=== PATIENT | female | born 1960 | race Caucasian/White ===

== ENCOUNTER → 2016-12-11 | Outpatient (REF) | payer BC | LOC: M SFHCWAGY 11:05 | PROVIDERS: ATTEND Nurse Practitioner Women's Health | DX: Z12.4 Encounter for screening for malignant neoplasm of cervix (principal) ==

== ENCOUNTER → 2016-12-11 | Outpatient (CLI) | payer BC ==
--- NOTE | 2016-12-11 12:06 | REPMRS ---
Patient History The patient states she had a clinical breast exam in Patient is postmenopausal and had previous chemotherapy at age 44. No known family history of cancer. Digital Woman Screen Mammo: December 11, 2016 - Exam #: [id number] Bilateral CC and MLO view(s) were taken. Technologist: Lizbeth Parker, Technologist Prior study comparison: November 01, 2015, digital woman screen mammo performed at [facility]. October 30, 2014, digital woman screen mammo performed at [facility]. September 30, 2013, digital woman screen mammo performed at [facility]. FINDINGS: The breast tissue is heterogeneously dense. This may lower the sensitivity of mammography. There is a moderate amount of heterogeneously dense fibroglandular tissue which is fairly symmetric. There is no interval development of dominant mass, architectural distortion, or clustered microcalcification typical of malignancy. There has been no change in the appearance of the mammogram from the prior studies. ASSESSMENT: BI-RADS/ACR category 1 mammogram. Negative. Recommendation Routine screening mammogram of both breasts in 1 year (for women over age 40). This mammogram was interpreted with the aid of an FDA-approved computer-aided dectection system. Electronically Signed By: Guanaco Renae MD 12/11/16 1413
== END ==
LOC: M WHC 10:05
PROVIDERS: ATTEND Nurse Practitioner Women's Health
DX: Z12.31 Encounter for screening mammogram for malignant neoplasm of breast (principal)

== ENCOUNTER → 2016-12-22 | Outpatient (CLI) | payer BC ==
[2016-12-22 18:22] LABS: ANION GAP 7 MEQ/L (8-16); BLOOD UREA NITROGEN 31 MG/DL (7-18); CALCIUM LEVEL 9.2 MG/DL (8.5-10.1); CARBON DIOXIDE LEVEL 30 MEQ/L (21-32); CHLORIDE LEVEL 107 MEQ/L (98-107); CREATININE FOR GFR 0.55 MG/DL (0.55-1.02); GLOMERULAR FILTRATION RATE > 60.0 (>51); GLUCOSE, FASTING 95 MG/DL (70-105); POTASSIUM SERUM 4.3 MEQ/L (3.5-5.1); SODIUM LEVEL 144 MEQ/L (136-145)
== END ==
LOC: M LAB 17:36
PROVIDERS: ATTEND Nurse Practitioner Women's Health
DX: M81.0 Age-related osteoporosis without current pathological fracture (principal)

== ENCOUNTER → 2017-06-25 | Outpatient (CLI) | payer BC ==
--- NOTE | 2017-06-25 12:45 | REP ---
MRI STUDY OF THE BRAIN WITHOUT AND WITH IV GADOLINIUM: HISTORY: Multiple sclerosis. Followup. Comparison MRI study is from June 21, 2015. Gadolinium enhancement dose. 11 mL of intravenous ProHance. MR TECHNIQUE: Axial coronal and sagittal imaging planes are utilized. T1 and T2-weighted sequences include spin-echo, fast spin echo, FLAIR, and diffusion weighted sequences. MRI FINDINGS: Craniocervical junction and upper cervical cord are normal in appearance. There is no MR evidence of significant paranasal sinus disease. No intraorbital abnormality is observed. There are multiple areas of high T2 signal intensity in the periventricular and subcortical white matter bilaterally. There is corpus callosal abnormal signal intensity as well. These findings are all felt to be unchanged from the comparison MRI study of July 01, 2015. Stable low T1 signal intensity areas are seen in the periventricular region bilaterally unchanged. No abnormal area of gadolinium enhancement is seen. Diffusion weighted sequences show no area of restricted diffusion. IMPRESSION: Findings compatible with radiographically stable demyelinating disease. Signed by Karri Renae MD 06/25/2017 02:12 P
== END ==
LOC: M RAD 10:58
PROVIDERS: ATTEND Psychiatry & Neurology Neurology
DX: G35 Multiple sclerosis (principal)
CPT/HCPCS: 70553; A9576

== ENCOUNTER → 2017-09-11 | Outpatient (REF) | payer BC ==
[2017-09-11 11:47] LABS: MEAN CORPUSCULAR HEMOGLOBIN 31.3 pg (27.0-33.0); MEAN CORPUSCULAR HGB CONC 33.8 g/dl (32.0-36.5); MEAN CORPUSCULAR VOLUME 92.6 fl (80.0-96.0); PLATELET COUNT, AUTOMATED 227 10^3/uL (150-450); RED CELL DISTRIBUTION WIDTH 13.2 % (11.5-14.5); WHITE BLOOD COUNT 6.5 10^3/uL (4.0-10.0)
[2017-09-11 12:32] LABS: ALBUMIN 4.2 GM/DL (3.2-5.2); ALKALINE PHOSPHATASE 47 U/L (45-117); ALT/SGPT 19 U/L (12-78); ANION GAP 7 MEQ/L (8-16); AST/SGOT 9 U/L (7-37); BILIRUBIN,TOTAL 0.4 MG/DL (0.2-1.0); BLOOD UREA NITROGEN 31 MG/DL (7-18); CALCIUM LEVEL 10.1 MG/DL (8.5-10.1); CARBON DIOXIDE LEVEL 31 MEQ/L (21-32); CHLORIDE LEVEL 104 MEQ/L (98-107); CHOLESTEROL LEVEL 173 MG/DL (<200); CREATININE FOR GFR 0.42 MG/DL (0.55-1.02); FREE T4 0.96 NG/DL (0.76-1.46); GLOMERULAR FILTRATION RATE > 60.0 (>51); GLUCOSE, FASTING 84 MG/DL (70-105); POTASSIUM SERUM 5.1 MEQ/L (3.5-5.1); SODIUM LEVEL 142 MEQ/L (136-145); TOTAL PROTEIN 7.2 GM/DL (6.4-8.2); TRIGLYCERIDES LEVEL 44 MG/DL (<150)
== END ==
LOC: M SFHCPLAZ 09:46
PROVIDERS: ATTEND Family Medicine
DX: E04.2 Nontoxic multinodular goiter (principal); K51.90 Ulcerative colitis, unspecified, without complications

== ENCOUNTER → 2018-02-07 | Outpatient (CLI) | payer BC | LOC: M WHC 13:06 | DX: Z12.31 Encounter for screening mammogram for malignant neoplasm of breast (principal); Z78.0 Asymptomatic menopausal state; Z92.21 Personal history of antineoplastic chemotherapy | CPT/HCPCS: 77067 ==

== ENCOUNTER → 2018-02-07 | Outpatient (REF) | payer BC | LOC: M SFHCWAGY 14:57 | DX: Z12.4 Encounter for screening for malignant neoplasm of cervix (principal) | CPT/HCPCS: G0123 ==

== ENCOUNTER → 2018-03-14 | Outpatient (CLI) | payer BC | LOC: M ADAMS 09:39 | DX: M51.37 Other intervertebral disc degeneration, lumbosacral region (principal); M54.32 Sciatica, left side | CPT/HCPCS: 72100 ==

== ENCOUNTER → 2018-03-18 | Outpatient (CLI) | payer BC | LOC: M PAIN 10:45 | DX: M46.1 Sacroiliitis, not elsewhere classified (principal); G57.01 Lesion of sciatic nerve, right lower limb; G35 Multiple sclerosis; R56.9 Unspecified convulsions; K51.90 Ulcerative colitis, unspecified, without complications; F17.210 Nicotine dependence, cigarettes, uncomplicated; G43.909 Migraine, unspecified, not intractable, without status migrainosus; Z79.899 Other long term (current) drug therapy; M85.80 Other specified disorders of bone density and structure, unspecified site; Z88.8 Allergy status to other drugs, medicaments and biological substances | CPT/HCPCS: G0463 ==

== ENCOUNTER → 2018-05-03 | Outpatient (CLI) | payer BC | LOC: M PAIN 14:30 | DX: G57.01 Lesion of sciatic nerve, right lower limb (principal); M46.1 Sacroiliitis, not elsewhere classified; G35 Multiple sclerosis; R56.9 Unspecified convulsions; K51.90 Ulcerative colitis, unspecified, without complications; M85.80 Other specified disorders of bone density and structure, unspecified site; F17.200 Nicotine dependence, unspecified, uncomplicated; Z79.899 Other long term (current) drug therapy; Z88.8 Allergy status to other drugs, medicaments and biological substances | CPT/HCPCS: G0463 ==

== ENCOUNTER → 2018-05-11 | Outpatient (CLI) | payer BC | LOC: M RAD 14:17 | DX: G57.01 Lesion of sciatic nerve, right lower limb (principal); M51.36 Other intervertebral disc degeneration, lumbar region; M51.26 Other intervertebral disc displacement, lumbar region | CPT/HCPCS: 72148 ==

== ENCOUNTER → 2018-05-28 | Outpatient (CLI) | payer BC ==
[~2018-05-28] MED LIST: ISOVUE-M 300 61% 15ML VIAL (Q9967) As Ordered; LIDOCAINE 1% SDV INJ 30 ML VIAL As Ordered; diazePAM 5 MG TAB As Ordered; diphenhydrAMINE 25 MG CAP As Ordered; methylPREDNISolone SUSP 40 MG/ML (DEPO-medrol) VIAL (J1030) As Ordered; oxyCODONE 5MG TAB As Ordered
== END ==
LOC: M PAIN 14:00
DX: G89.29 Other chronic pain (principal); M51.17 Intervertebral disc disorders with radiculopathy, lumbosacral region; M51.16 Intervertebral disc disorders with radiculopathy, lumbar region; M81.0 Age-related osteoporosis without current pathological fracture; G35 Multiple sclerosis; K51.90 Ulcerative colitis, unspecified, without complications; G43.909 Migraine, unspecified, not intractable, without status migrainosus; F17.210 Nicotine dependence, cigarettes, uncomplicated; Z79.899 Other long term (current) drug therapy; Z88.8 Allergy status to other drugs, medicaments and biological substances
CPT/HCPCS: J1030

== ENCOUNTER → 2018-06-19 | Outpatient (CLI) | payer MEDICARE | LOC: M PAIN 13:15 | DX: M51.17 Intervertebral disc disorders with radiculopathy, lumbosacral region (principal); M51.16 Intervertebral disc disorders with radiculopathy, lumbar region; G35 Multiple sclerosis; M81.0 Age-related osteoporosis without current pathological fracture; F17.210 Nicotine dependence, cigarettes, uncomplicated; Z79.899 Other long term (current) drug therapy; Z88.8 Allergy status to other drugs, medicaments and biological substances; Z78.0 Asymptomatic menopausal state | CPT/HCPCS: G0463 ==

== ENCOUNTER → 2018-07-23 | Outpatient (CLI) | payer MEDICARE ==
[~2018-07-23] MED LIST changes: -oxyCODONE 5MG TAB As Ordered
== END ==
LOC: M PAIN 13:30
DX: M51.17 Intervertebral disc disorders with radiculopathy, lumbosacral region (principal); G35 Multiple sclerosis; R56.9 Unspecified convulsions; K51.90 Ulcerative colitis, unspecified, without complications; M81.0 Age-related osteoporosis without current pathological fracture; F17.210 Nicotine dependence, cigarettes, uncomplicated; Z79.899 Other long term (current) drug therapy; E04.9 Nontoxic goiter, unspecified; Z88.1 Allergy status to other antibiotic agents; Z88.8 Allergy status to other drugs, medicaments and biological substances
CPT/HCPCS: J1030

== ENCOUNTER → 2018-08-13 | Outpatient (CLI) | payer MEDICARE | LOC: M PAIN 13:30 | DX: M51.16 Intervertebral disc disorders with radiculopathy, lumbar region (principal); G35 Multiple sclerosis; K51.90 Ulcerative colitis, unspecified, without complications; M81.0 Age-related osteoporosis without current pathological fracture; F17.210 Nicotine dependence, cigarettes, uncomplicated; Z79.899 Other long term (current) drug therapy; Z88.8 Allergy status to other drugs, medicaments and biological substances | CPT/HCPCS: G0463 ==

== ENCOUNTER → 2018-09-12 | Outpatient (CLI) | payer MEDICARE ==
[~2018-09-12] MED LIST changes: +BUPIVACAINE HCL 0.25% 30 ML VIAL As Ordered; +dexameTHASONE 10 MG/1 ML VIAL PRES.FREE (J1100) As Ordered; -methylPREDNISolone SUSP 40 MG/ML (DEPO-medrol) VIAL (J1030) As Ordered
== END ==
LOC: M PAIN 13:30
DX: G89.29 Other chronic pain (principal); M51.16 Intervertebral disc disorders with radiculopathy, lumbar region; M51.17 Intervertebral disc disorders with radiculopathy, lumbosacral region; G35 Multiple sclerosis; R56.9 Unspecified convulsions; M81.0 Age-related osteoporosis without current pathological fracture; F17.210 Nicotine dependence, cigarettes, uncomplicated; Z79.899 Other long term (current) drug therapy; Z88.8 Allergy status to other drugs, medicaments and biological substances; Z87.19 Personal history of other diseases of the digestive system
CPT/HCPCS: J1100

== ENCOUNTER → 2018-10-10 | Outpatient (CLI) | payer MEDICARE | LOC: M PAIN 10:30 | DX: M51.26 Other intervertebral disc displacement, lumbar region (principal); M54.17 Radiculopathy, lumbosacral region; G35 Multiple sclerosis; R56.9 Unspecified convulsions; M19.90 Unspecified osteoarthritis, unspecified site; F17.210 Nicotine dependence, cigarettes, uncomplicated; Z79.899 Other long term (current) drug therapy; Z88.8 Allergy status to other drugs, medicaments and biological substances; Z87.19 Personal history of other diseases of the digestive system | CPT/HCPCS: G0463 ==

== ENCOUNTER → 2018-10-28 | Outpatient (CLI) | payer MEDICARE ==
[~2018-10-28] MED LIST changes: -BUPIVACAINE HCL 0.25% 30 ML VIAL As Ordered; -ISOVUE-M 300 61% 15ML VIAL (Q9967) As Ordered; +ISOVUE-M 300 61% 15ML VIAL (Q9967) As Ordered ONE; -LIDOCAINE 1% SDV INJ 30 ML VIAL As Ordered; +LIDOCAINE 1% SDV INJ 30 ML VIAL As Ordered ONE; -dexameTHASONE 10 MG/1 ML VIAL PRES.FREE (J1100) As Ordered; -diazePAM 5 MG TAB As Ordered; +diazePAM 5 MG TAB As Ordered ONE; -diphenhydrAMINE 25 MG CAP As Ordered; +diphenhydrAMINE 25 MG CAP As Ordered ONE; +methylPREDNISolone SUSP 40 MG/ML (DEPO-medrol) VIAL (J1030) As Ordered ONE
--- NOTE | 2018-10-28 18:28 | REP ---
Partial lumbar spine series: Four views . History: Injection procedure for pain. 48 seconds of fluoroscopy time is reported. Findings: A sequence of four fluoroscopically obtained last image hold procedural spot radiographs of the lumbar spine document needle position and contrast injection associated with injection procedure. Electronically Signed by Karri Renae MD 10/28/2018 06:19 P
--- NOTE | 2018-11-12 23:35 | ECWPNPC ---
PATIENT NAME: MARY NAIR : 1960 GENDER: FEMALE VISIT DATE: 10/28/2018 DISCHARGE DATE: 10/28/18 1537 VISIT LOCKED DATE TIME: PHYSICIAN: BEV BARBOZA MD PHYSICIAN PAGER NO: [phone] RESOURCE: BEV BARBOZA MD REASON FOR APPOINTMENT 1. L5/S1 INTRALAMINAR LESI HISTORY OF PRESENT ILLNESS HISTORY OF PRESENT ILLNESS: PAIN THE PATIENT DESCRIBES THE PAIN... FALL RISK SCREENING: SCREENING :NO FALLS IN THE PAST YEAR CURRENT MEDICATIONS TAKING PROLIA 60 MG/ML SOLUTION DIRECTED SUBCUTANEOUS Q SIX MONTHS, NOTES: 07/2018 TAKING ASACOL 800 MG TABLET DELAYED RELEASE 1 TABLET ORALLY TWICE A DAY, NOTES: 10/28 700 TAKING BACLOFEN 20 MG TABLET 1 TABLET ORALLY DAILY, NOTES: 10/27 1900 TAKING DEPAKOTE ER 500 MG TABLET EXTENDED RELEASE 24 HOUR 1 TABLET ORALLY TWICE A DAY, NOTES: 10/28 700 TAKING PROVIGIL 100 MG TABLET 1 TABLET ORALLY ONCE A DAY, NOTES: 10/27 TAKING TECFIDERA 240 MG TABLET 1 TABLET ORALLY TWICE A DAY, NOTES: 10/28 700 TAKING CALCIUM 600 + D 600-400 MG-UNIT TABLET 1 TABLET ORALLY DAILY, NOTES: 10/28 700 TAKING VITAMIN D-3 2000 UNITS CAPSULE 1 CAPSULE ORALLY ONCE A DAY, NOTES: 10/28 700 TAKING NEURONTIN 300 MG CAPSULE 1 CAPSULE ORALLY BID, NOTES: 10/28 700 TAKING VITAMIN E 1000 UNIT CAPSULE 1 CAPSULE ORALLY ONCE A DAY, NOTES: 10/28 700 TAKING PATANOL 0.1 % SOLUTION 1 DROP INTO BOTH EYES OPHTHALMIC TWICE A DAY NEEDED, NOTES: NONE RECENT TAKING MAXALT 10 MG TABLET 1 TABLET ORALLY DAILY NEEDED FOR MIGRAINES MAXIUM MIGRAINES A MONTH =2, NOTES: NONE RECENT TAKING IBUPROFEN 600 MG TABLET 1 TABLET ORALLY THREE TIMES DAILY NEEDED, NOTES: 10/28 700 MEDICATION LIST REVIEWED AND RECONCILED WITH THE PATIENT PAST MEDICAL HISTORY MULTIPLE SCLEROSIS (DR. WHITING) SEIZURES ULCERATIVE COLITIS (DR. GRANDA) CARPAL TUNNEL OSTEOPOROSIS; STARTED PROLIA 12/29 SMOKER NON-TOXIC MULTINODULAR GOITER STABLE ON US 2013 (PREVIOUSLY FOLLOWED BY DR. GARCÍA) BL CARPEL TUNNEL - NO SURGERY ECHO 2004 MILD GLOBAL HYPOKINESIS LV EF 50% RT SCIATICA 2018 MINI BOWEL PERFORATION 2002 ALLERGIES 6-MP: GI SIDE EFFECTS: SIDE EFFECTS MTX: HAIR LOSS: SIDE EFFECTS FLAGYL: RED RASH: ALLERGY SURGICAL HISTORY TONSILLECTOMY 9 YEARS OLD ADENOIDECTOMY 9 YEARS OLD COLONSCOPY//NAN 04/07/2010,03/2014 & 2016 COLPOSCOPY CONIZATION FAMILY HISTORY FATHER: ALIVE 71 YRS, POLYMYALGIA, DIAGNOSED WITH HEART DISEASE MOTHER: ALIVE 79 YRS, HTN, HIGH CHOLESTEROL, CHOLECYSTECTOMY, DIAGNOSED WITH HYPERTENSION SIBLINGS: ALIVE 57,48 YRS DAUGHTER(S): ALIVE 27,23 YRS MATERNAL GRAND FATHER: BLADDER CANCER AT AGE 80 MATERNAL GRAND MOTHER: , HEART DISEASE, CHF, BYPASS SURGERY MATERNAL UNCLE: , COMPLICATIONS OF IDDM, CHF 2 SISTER(S) - HEALTHY. 2DAUGHTER(S) - HEALTHY. DENIES BREAST, COLON OR OVARIAN CANCERS. SOCIAL HISTORY GENERAL: TOBACCO USE ARE YOU A:CURRENT SMOKER ARE YOU INTERESTED IN QUITTING?NOT READY TO QUIT COUNSELED THE PATIENT ON SMOKING EFFECTS, EDUCATION ELAQATCV19/17/2018 HOW MANY CIGARETTES A DAY DO YOU SMOKE?6-10 HOW SOON AFTER YOU WAKE UP DO YOU SMOKE YOUR FIRST CIGARETTE?AFTER 60 MIN HOW OFTEN DO YOU SMOKE CIGARETTES?EVERY DAY PATIENT COUNSELED ON THE DANGERS OF TOBACCO USE AND URGED TO QUIT:10/28/2018 ALCOHOL SCREENING DID YOU HAVE A DRINK CONTAINING ALCOHOL IN THE PAST YEAR?NO POINTS0 INTERPRETATIONNEGATIVE RECREATIONAL DRUG USE DRUG USE?NO CAFFEINE NONE. SEXUAL HX HAD SEX IN THE LAST 12 MONTHS (VAGINAL, ORAL, OR ANAL)?YES WITHMEN ONLY HAVE YOU EVER HAD AN STD?NO LMP:POST MENOPAUSE HIV / HEP-C SCREENING HIV TEST OFFERED TO PATIENT:YES DATE OFFERED:02/07/2018 TEST ACCEPTED:NO REASON:PATIENT DECLINED BROCHURE PROVIDED TO PATIENTYES GNOSTICIST [id number] JUDAISM LANGUAGE CROATIAN. 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 DIET: NO HX EATING DISORDERS. EXERCISE: NO REGULAR EXERCISE. MARITAL STATUS: X 32 YRS. OTHERS AT HOME: SPOUSE, YOUNGEST DAUGHTER IN COLLEGE. NEW PATIENT PAIN DIARY FROM 0-10, WHAT LEVEL IS YOUR PAIN TODAY?7 PAIN CLINIC PFS, CLERGY, PUBLIC HEALTH REFERRALS PFS REFERRAL NEEDED?NO CLERGY REFERRAL NEEDED?NO PUBLIC HEALTH REFERRAL NEEDED?NO WAS THE PROVIDER NOTIFIED OF ANY PERTINENT INFO? N/A HAS THE PATIENT BEEN EDUCATED REGARDING HIS/HER PLAN OF CARE?YES HAS THE PATIENT BEEN EDUCATED REGARDING PAIN, THE RISK FOR PAIN, THE IMPORTANCE OF EFFECTIVE PAIN MANAGEMENT, AND THE PAIN ASSESSMENT PROCESS?YES ADVANCE DIRECTIVE ADVANCE DIRECTIVE DISCUSSED WITH PATIENT:YES HCP-1. -STACEY [phone]. 2. MARIA DEL ROSARIO CRUZ- DAUGHTER [phone] REVIEWED WITH PATIENT 08/13/18 1343 JSREVIEWED WITH PATIENT 09/12/18 1454 LAS10/10/18 1041 REVIEWED WITH PT. AD10/28/18 1345 REVIEWED WITH PT. AD. HOSPITALIZATION/MAJOR DIAGNOSTIC PROCEDURE CHILDBIRTH X2 MS 1992 REVIEW OF SYSTEMS REVIEWED BY: PROVIDER: . CONSTITUTIONAL: ANY CHANGE IN YOUR MEDICAL CONDITION? NO . CHILLS NO . FEVER NO . INFECTION: DO YOU HAVE NEW INFECTIONS? NO . DO YOU HAVE HISTORY OF MRSA? NO . MUSCULOSKELETAL: ANY NEW PATTERNS OF PAIN OR NUMBNESS? NO . GASTROENTEROLOGY: ANY NEW CHANGE IN BOWEL CONTROL? NO . GENITOURINARY: ANY NEW CHANGE IN BLADDER CONTROL? NO . IS THERE A CHANCE YOU COULD BE ? NO . HEMATOLOGY/LYMPH: DO YOU TAKE ANY BLOOD THINNERS? (FOR EXAMPLE- COUMADIN, PLAVIX, AGGRENOX, PLATEL, PRADAXA, OR XARELTO) NO . WHEN WAS YOUR LAST DOSE? DATE: TIME: . NEUROLOGY: HAVE YOU FALLEN IN THE PAST 6 MONTHS? NO . ANY NEW EXTREMITY NUMBNESS OR WEAKNESS? NO . CARDIOLOGY: DO YOU HAVE A PACEMAKER OR DEFIBRILLATOR? NO . RESPIRATORY: HAVE YOU BEEN SICK IN THE PAST WEEK? NO . FEVER NO . FLU LIKE SYMPTOMS? NO . COUGH NO . INTEGUMENTARY: DO YOU HAVE ANY RASHES OR OPEN SORES? NO . ALLERGIC/IMMUNO: ARE YOU ALLERGIC TO SHELLFISH OR IV DYE? NO . ANY NEW ALLERGIES? NO . PSYCHIATRIC: DO YOU HAVE THOUGHTS OF HURTING YOURSELF OR SOMEONE ELSE? NO . ARE YOU ABUSED, NEGLECTED, OR IN AN UNSAFE ENVIRONMENT? NO . ENDOCRINOLOGY: ARE YOU DIABETIC? NO . OTHER: DO YOU NEED ANY PRESCRIPTIONS? NO . IF YES, PLEASE LIST: ____ . ANY NEW PROBLEMS WITH YOUR MEDICATIONS? NO . WHEN DID YOU LAST EAT? 0630 . WHEN DID YOU LAST DRINK? 10/29 1100 . WHAT DID YOU LAST DRINK? ____ . NAME OF PERSON DRIVING YOU HOME? STACEY- . DO YOU HAVE ANY OTHER QUESTIONS OR CONCERNS NO PT HAS NOT HAD ANY VACCINES IN THE PAST 30 DAYS. . VITAL SIGNS WT 129.2 LBS, HT 66.5 IN, BMI 20.54 INDEX, BP 106/65 MM HG, HR 78 /MIN, RR 16 /MIN, TEMP 98.0 F, OXYGEN SAT % 100%, SAFE IN ENV? (Y/N) Y, NA INITIALS SC 13:09, REVIEWED BY: VERONICA. ASSESSMENTS INTERVERTEBRAL DISC DISORDER WITH RADICULOPATHY OF LUMBOSACRAL REGION - M51.17 (PRIMARY) PROCEDURES PRE PROCEDURE DIAGNOSIS LUMBOSACRAL DISC DISORDER WITH RADICULOPATHY POST PROCEDURE DIAGNOSIS LUMBOSACRAL DISC DISORDER WITH RADICULOPATHY PROCEDURE LUMBAR EPIDURAL STEROID INJECTION UNDER FLUOROSCOPIC GUIDANCE SURGEON DR. BEV BARBOZA FILAMENT COIL WINDER NONE ANESTHESIA LOCAL PRE PROCEDURE NOTE THE PATIENT HAS A HISTORY OF CHRONIC LOW BACK PAIN. I EVALUATE THE PATIENT AND REVIEWED THE CHART. I WENT OVER THE RISKS, ALTERNATIVES, AND BENEFITS ASSOCIATED WITH THIS PROCEDURE. THE PATIENT WOULD LIKE TO PROCEED AND GIVE CONSENT TO PERFORMED THE PROCEDURE. THE PATIENT DENIES UNEXPLAINABLE WEIGHT LOSS, FEVER, CHILLS, OR NEW CHANGES IN URINARY OR BOWEL CONTROL. DESCRIPTION OF PROCEDURE THE PATIENT WAS BROUGHT TO THE PROCEDURE ROOM AND PLACED IN THE PRONE POSITION. THE LUMBOSACRAL AREA WAS CLEANED WITH BETADINE SOLUTION AND DRAPED ASEPTICALLY. THE PROCEDURE WAS DONE UNDER STERILE CONDITIONS. I CHECKED LATERALITY AND THE LEVEL WHERE THE PROCEDURE WAS GOING TO BE PERFORMED WITH THE PATIENT AND THE SUPPORTING STAFF AT THE MOMENT OF THE TIME OUT IN THE PROCEDURE ROOM. UNDER FLUOROSCOPIC GUIDANCE, THE TARGET POINT WAS SELECTED AT THE INTERLAMINAR LEVEL OF L5-S1. LIDOCAINE WAS USED TO NUMB THE SKIN AND THE SUBCUTANEOUS TISSUE BELOW IT. EPIDURAL TUOHY NEEDLE, 17-GAUGE, WAS ADVANCED UNDER FLUOROSCOPIC GUIDANCE AND FOLLOWING PATIENT FEEDBACK UNTIL THE EPIDURAL SPACE WAS REACHED, 7 CM DEEP INTO THE SKIN BY THE LOSS OF RESISTANCE TECHNIQUE. ISOVUE M DYE 30%, 0.25 ML, WAS INJECTED SHOWING ADEQUATE SPREAD OF THE DYE. THEN, A SOLUTION OF 3 ML OF NORMAL SALINE WITH DEPO-MEDROL 60 MG WAS INJECTED SLOWLY FOLLOWING PATIENT FEEDBACK. THERE WAS NO EVIDENCE OF BLOOD, PARESTHESIA OR CEREBROSPINAL FLUID DURING THE PROCEDURE. THE PATIENT WAS SENT TO THE RECOVERY ROOM. THE PATIENT WAS MOVING THE EXTREMITIES AND DOING WELL. THERE WAS NO COMPLICATION DURING THE PROCEDURE. FLUOROSCOPY TIME WAS 48 SECONDS. POST PROCEDURE NOTE THE PATIENT WILL BE SEEN IN A FOLLOW UP IN THE NEXT FEW WEEKS. INSTRUCTIONS WERE GIVEN, QUESTIONS WERE ANSWERED, AND THE PATIENT EXPRESSED UNDERSTANDING AND AGREES WITH THE PLAN. I, ELIZABETH SCHNEIDER, DOCUMENTED THE ABOVE INFORMATION ACTING A SCRIBE FOR DR. BARBOZA. I HAVE REVIEWED THE ABOVE DOCUMENT, WRITTEN BY ELIZABETH LLOYDIBNereida AND I VERIFY THAT IT IS ACCURATE. DIAGNOSTIC IMAGING [facility] FLUORO GUIDE SPINE INJECTION (PAIN)[id number] PROCEDURE CODES 6045F RADXPS IN END [id number] PXD [id number] LUMBAR/SACRAL W/ IMAGING DISPOSITION & COMMUNICATION FOLLOW UP 2 WEEKS ELECTRONICALLY SIGNED BY BEV BARBOZA MD, MD ON 11/12/2018 AT 07:24 PM EST DISCLAIMER : THIS IS A VISIT SUMMARY EXTRACTED FROM THE [facility] CHART. IT IS NOT A COPY OF THE [facility] PROGRESS NOTE. MTDD
== END ==
LOC: M PAIN 13:00
PROVIDERS: ATTEND Anesthesiology
DX: M51.17 Intervertebral disc disorders with radiculopathy, lumbosacral region (principal); G35 Multiple sclerosis; R56.9 Unspecified convulsions; M81.0 Age-related osteoporosis without current pathological fracture; K51.90 Ulcerative colitis, unspecified, without complications; E04.2 Nontoxic multinodular goiter; G56.03 Carpal tunnel syndrome, bilateral upper limbs; F17.210 Nicotine dependence, cigarettes, uncomplicated; Z79.899 Other long term (current) drug therapy; Z88.1 Allergy status to other antibiotic agents; Z88.8 Allergy status to other drugs, medicaments and biological substances
CPT/HCPCS: 62323; J1030; Q9967

== ENCOUNTER → 2018-11-14 | Outpatient (CLI) | payer MEDICARE ==
--- NOTE | 2018-12-06 01:53 | ECWPNPC ---
PATIENT NAME: MARY NAIR : 1960 GENDER: FEMALE VISIT DATE: 11/14/2018 DISCHARGE DATE: 11/14/18 1008 VISIT LOCKED DATE TIME: PHYSICIAN: CARTER ASTUDILLO PHYSICIAN PAGER NO: [phone] RESOURCE: CARTER ASTUDILLO REASON FOR APPOINTMENT 1. POST LESI HISTORY OF PRESENT ILLNESS HISTORY OF PRESENT ILLNESS: HERE FOR POST PROCEDURE F/U.HAD LESI [id number].REPORTING >50% IMPROVEMENT OVERALL WITH BACK PAIN AND RIGHT LEG PAIN.CONTINUES TO HAVE RESIDUAL RIGHT ANTERIOR LATERAL TIBIA/FIBULA PAIN.RATING PAIN VAS 5/10. PAIN THE PATIENT DESCRIBES THE PAIN... FALL RISK SCREENING: SCREENING :NO FALLS IN THE PAST YEAR CURRENT MEDICATIONS TAKING PROLIA 60 MG/ML SOLUTION DIRECTED SUBCUTANEOUS Q SIX MONTHS, NOTES: 07/2018 TAKING ASACOL 800 MG TABLET DELAYED RELEASE 1 TABLET ORALLY TWICE A DAY, NOTES: 10/28 700 TAKING BACLOFEN 20 MG TABLET 1 TABLET ORALLY DAILY, NOTES: 10/27 1900 TAKING DEPAKOTE ER 500 MG TABLET EXTENDED RELEASE 24 HOUR 1 TABLET ORALLY TWICE A DAY, NOTES: 10/28 700 TAKING PROVIGIL 100 MG TABLET 1 TABLET ORALLY ONCE A DAY, NOTES: 10/27 TAKING TECFIDERA 240 MG TABLET 1 TABLET ORALLY TWICE A DAY, NOTES: 10/28 700 TAKING CALCIUM 600 + D 600-400 MG-UNIT TABLET 1 TABLET ORALLY DAILY, NOTES: 10/28 700 TAKING VITAMIN D-3 2000 UNITS CAPSULE 1 CAPSULE ORALLY ONCE A DAY, NOTES: 10/28 700 TAKING NEURONTIN 300 MG CAPSULE 1 CAPSULE ORALLY BID, NOTES: 10/28 700 TAKING VITAMIN E 1000 UNIT CAPSULE 1 CAPSULE ORALLY ONCE A DAY, NOTES: 10/28 700 TAKING PATANOL 0.1 % SOLUTION 1 DROP INTO BOTH EYES OPHTHALMIC TWICE A DAY NEEDED, NOTES: NONE RECENT TAKING MAXALT 10 MG TABLET 1 TABLET ORALLY DAILY NEEDED FOR MIGRAINES MAXIUM MIGRAINES A MONTH =2, NOTES: NONE RECENT TAKING IBUPROFEN 600 MG TABLET 1 TABLET ORALLY THREE TIMES DAILY NEEDED, NOTES: 10/28 700 MEDICATION LIST REVIEWED AND RECONCILED WITH THE PATIENT PAST MEDICAL HISTORY MULTIPLE SCLEROSIS (DR. WHITING) SEIZURES ULCERATIVE COLITIS (DR. GRANDA) CARPAL TUNNEL OSTEOPOROSIS; STARTED PROLIA 12/29 SMOKER NON-TOXIC MULTINODULAR GOITER STABLE ON US 2013 (PREVIOUSLY FOLLOWED BY DR. GARCÍA) BL CARPEL TUNNEL - NO SURGERY ECHO 2004 MILD GLOBAL HYPOKINESIS LV EF 50% RT SCIATICA 2018 MINI BOWEL PERFORATION 2002 ALLERGIES MTX: HAIR LOSS: SIDE EFFECTS FLAGYL: RED RASH: ALLERGY SURGICAL HISTORY TONSILLECTOMY 9 YEARS OLD ADENOIDECTOMY 9 YEARS OLD COLONSCOPY//NAN 04/07/2010,03/2014 & 2016 COLPOSCOPY CONIZATION FAMILY HISTORY FATHER: ALIVE 71 YRS, POLYMYALGIA, DIAGNOSED WITH HEART DISEASE MOTHER: ALIVE 79 YRS, HTN, HIGH CHOLESTEROL, CHOLECYSTECTOMY, DIAGNOSED WITH HYPERTENSION SIBLINGS: ALIVE 57,48 YRS DAUGHTER(S): ALIVE 27,23 YRS MATERNAL GRAND FATHER: BLADDER CANCER AT AGE 80 MATERNAL GRAND MOTHER: , HEART DISEASE, CHF, BYPASS SURGERY MATERNAL UNCLE: , COMPLICATIONS OF IDDM, CHF 2 SISTER(S) - HEALTHY. 2DAUGHTER(S) - HEALTHY. DENIES BREAST, COLON OR OVARIAN CANCERS. SOCIAL HISTORY GENERAL: TOBACCO USE ARE YOU A:CURRENT SMOKER ARE YOU INTERESTED IN QUITTING?NOT READY TO QUIT COUNSELED THE PATIENT ON SMOKING EFFECTS, EDUCATION AGCAUNAZ49/03/2019 HOW MANY CIGARETTES A DAY DO YOU SMOKE?6-10 HOW SOON AFTER YOU WAKE UP DO YOU SMOKE YOUR FIRST CIGARETTE?AFTER 60 MIN HOW OFTEN DO YOU SMOKE CIGARETTES?EVERY DAY PATIENT COUNSELED ON THE DANGERS OF TOBACCO USE AND URGED TO QUIT:11/14/2018 ALCOHOL SCREENING DID YOU HAVE A DRINK CONTAINING ALCOHOL IN THE PAST YEAR?NO POINTS0 INTERPRETATIONNEGATIVE RECREATIONAL DRUG USE DRUG USE?NO CAFFEINE NONE. SEXUAL HX HAD SEX IN THE LAST 12 MONTHS (VAGINAL, ORAL, OR ANAL)?YES WITHMEN ONLY HAVE YOU EVER HAD AN STD?NO LMP:POST MENOPAUSE HIV / HEP-C SCREENING HIV TEST OFFERED TO PATIENT:YES DATE OFFERED:02/07/2018 TEST ACCEPTED:NO REASON:PATIENT DECLINED BROCHURE PROVIDED TO PATIENTYES CHRISTIAN [id number] AMISH LANGUAGE AMERICAN. 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 DIET: NO HX EATING DISORDERS. EXERCISE: NO REGULAR EXERCISE. MARITAL STATUS: X 32 YRS. OTHERS AT HOME: SPOUSE, YOUNGEST DAUGHTER IN COLLEGE. NEW PATIENT PAIN DIARY FROM 0-10, WHAT LEVEL IS YOUR PAIN TODAY?7 PAIN CLINIC PFS, CLERGY, PUBLIC HEALTH REFERRALS PFS REFERRAL NEEDED?NO CLERGY REFERRAL NEEDED?NO PUBLIC HEALTH REFERRAL NEEDED?NO WAS THE PROVIDER NOTIFIED OF ANY PERTINENT INFO? N/A HAS THE PATIENT BEEN EDUCATED REGARDING HIS/HER PLAN OF CARE?YES HAS THE PATIENT BEEN EDUCATED REGARDING PAIN, THE RISK FOR PAIN, THE IMPORTANCE OF EFFECTIVE PAIN MANAGEMENT, AND THE PAIN ASSESSMENT PROCESS?YES ADVANCE DIRECTIVE ADVANCE DIRECTIVE DISCUSSED WITH PATIENT:YES HCP-1. -STACEY [phone]. 2. MARIA DEL ROSARIO CRUZ- DAUGHTER [phone] REVIEWED WITH PATIENT 08/13/18 1343 JSREVIEWED WITH PATIENT 09/12/18 1454 LAS10/10/18 1041 REVIEWED WITH PT. AD10/28/18 1345 REVIEWED WITH PT. ADREVIEWED WITH PT 11/14/2018 0945 LAS. HOSPITALIZATION/MAJOR DIAGNOSTIC PROCEDURE CHILDBIRTH X2 MS 1992 REVIEW OF SYSTEMS REVIEWED BY: PROVIDER: CARTER JORDAN . CONSTITUTIONAL: ANY CHANGE IN YOUR MEDICAL CONDITION? NO . CHILLS NO . FEVER NO . INFECTION: DO YOU HAVE NEW INFECTIONS? NO . DO YOU HAVE HISTORY OF MRSA? NO . MUSCULOSKELETAL: ANY NEW PATTERNS OF PAIN OR NUMBNESS? NO . GASTROENTEROLOGY: ANY NEW CHANGE IN BOWEL CONTROL? NO . GENITOURINARY: ANY NEW CHANGE IN BLADDER CONTROL? NO . IS THERE A CHANCE YOU COULD BE ? NO . HEMATOLOGY/LYMPH: DO YOU TAKE ANY BLOOD THINNERS? (FOR EXAMPLE- COUMADIN, PLAVIX, AGGRENOX, PLATEL, PRADAXA, OR XARELTO) NO . WHEN WAS YOUR LAST DOSE? DATE: TIME: . NEUROLOGY: HAVE YOU FALLEN IN THE PAST 6 MONTHS? NO . ANY NEW EXTREMITY NUMBNESS OR WEAKNESS? NO . CARDIOLOGY: DO YOU HAVE A PACEMAKER OR DEFIBRILLATOR? NO . RESPIRATORY: HAVE YOU BEEN SICK IN THE PAST WEEK? NO . FEVER NO . FLU LIKE SYMPTOMS? NO . COUGH NO . INTEGUMENTARY: DO YOU HAVE ANY RASHES OR OPEN SORES? NO . ALLERGIC/IMMUNO: ARE YOU ALLERGIC TO SHELLFISH OR IV DYE? NO . ANY NEW ALLERGIES? NO . PSYCHIATRIC: DO YOU HAVE THOUGHTS OF HURTING YOURSELF OR SOMEONE ELSE? NO . ARE YOU ABUSED, NEGLECTED, OR IN AN UNSAFE ENVIRONMENT? NO . ENDOCRINOLOGY: ARE YOU DIABETIC? NO . OTHER: DO YOU NEED ANY PRESCRIPTIONS? NO . IF YES, PLEASE LIST: ____ . ANY NEW PROBLEMS WITH YOUR MEDICATIONS? NO . WHEN DID YOU LAST EAT? ____ . WHEN DID YOU LAST DRINK? ____ . WHAT DID YOU LAST DRINK? ____ . NAME OF PERSON DRIVING YOU HOME? ____ . DO YOU HAVE ANY OTHER QUESTIONS OR CONCERNS NO . VITAL SIGNS WT 127.6 LBS, HT 66.5 IN, BMI 20.28 INDEX, BP 106/54 MM HG, HR 79 /MIN, RR 16 /MIN, TEMP 97.5 F, OXYGEN SAT % 98%, SAFE IN ENV? (Y/N) YES, NA INITIALS VA 09:37, REVIEWED BY: TONY. EXAMINATION GENERAL EXAMINATION: GENERAL APPEARANCE:ALERT,NO DISTRESS . PSYCHAFFECT NORMAL . LUNGS:LUNG SOUNDS ARE CLEAR . HEART:HEART RATE REGULAR . MUSCULOSKELETAL:MILD WEAKNESS OVER RIGHT LEG.TREMOR WITH MST RIGHT LEG. NEUROLOGIC EXAM:NORMAL SENSATION LIGHT TOUCH BILAT LEGS. DIAGNOSTIC TESTS REVIEWEDMRI L/S SPINE-05/11/18. ASSESSMENTS DISC DISPLACEMENT, LUMBAR - M51.26 (PRIMARY) LUMBOSACRAL RADICULOPATHY - M54.17 TREATMENT DISC DISPLACEMENT, LUMBAR CONTINUE NEURONTIN CAPSULE, 300 MG, 1 CAPSULE, ORALLY, BID, NOTES: 10/28 07 CONTINUE IBUPROFEN TABLET, 600 MG, 1 TABLET, ORALLY, THREE TIMES DAILY NEEDED, NOTES: 10/28 700 PROCEDURE CODES FA211 ESTABILISHED PATIENT MERGED WITH [facility] CHARGE DISPOSITION & COMMUNICATION FOLLOW UP 2 MONTHS ELECTRONICALLY SIGNED BY JULIAN MENDOZA ON 12/05/2018 AT 08:52 AM EST DISCLAIMER : THIS IS A VISIT SUMMARY EXTRACTED FROM THE [facility] CHART. IT IS NOT A COPY OF THE [facility] PROGRESS NOTE. CESAR
== END ==
LOC: M PAIN 09:15
PROVIDERS: ATTEND Nurse Practitioner Family
DX: M51.26 Other intervertebral disc displacement, lumbar region (principal); M54.17 Radiculopathy, lumbosacral region; G35 Multiple sclerosis; R56.9 Unspecified convulsions; M81.0 Age-related osteoporosis without current pathological fracture; F17.210 Nicotine dependence, cigarettes, uncomplicated; Z79.899 Other long term (current) drug therapy; Z88.8 Allergy status to other drugs, medicaments and biological substances; Z87.19 Personal history of other diseases of the digestive system

== ENCOUNTER → 2019-01-17 | Outpatient (CLI) | payer MEDICARE ==
--- NOTE | 2019-01-18 02:39 | ECWPNPC ---
PATIENT NAME: MARY NAIR : 1960 GENDER: FEMALE VISIT DATE: 01/17/2019 DISCHARGE DATE: 01/17/19 1035 VISIT LOCKED DATE TIME: PHYSICIAN: CARTER ASTUDILLO PHYSICIAN PAGER NO: [phone] RESOURCE: CARTER ASTUDILLO REASON FOR APPOINTMENT 1. R LEG PAIN HISTORY OF PRESENT ILLNESS HISTORY OF PRESENT ILLNESS: HERE FOR F/U OF CHRONIC LOW BACK PAIN AND RIGHT LEG PAIN.PAIN HAS ESCALATED OVER THE PAST MONTH ECSPECIALLY ALONG RIGHT LATERAL CALF AND FOOT.RATING PAIN VAS 7/10. PAIN THE PATIENT DESCRIBES THE PAIN... FALL RISK SCREENING: SCREENING : NO FALLS IN THE PAST YEAR. CURRENT MEDICATIONS TAKING PROLIA 60 MG/ML SOLUTION DIRECTED SUBCUTANEOUS Q SIX MONTHS TAKING ASACOL 800 MG TABLET DELAYED RELEASE 1 TABLET ORALLY TWICE A DAY TAKING BACLOFEN 20 MG TABLET 1 TABLET ORALLY DAILY TAKING DEPAKOTE ER 500 MG TABLET EXTENDED RELEASE 24 HOUR 1 TABLET ORALLY TWICE A DAY TAKING PROVIGIL 100 MG TABLET 1 TABLET ORALLY ONCE A DAY TAKING TECFIDERA 240 MG TABLET 1 TABLET ORALLY TWICE A DAY TAKING CALCIUM 600 + D 600-400 MG-UNIT TABLET 1 TABLET ORALLY DAILY TAKING VITAMIN D-3 2000 UNITS CAPSULE 1 CAPSULE ORALLY ONCE A DAY TAKING VITAMIN E 1000 UNIT CAPSULE 1 CAPSULE ORALLY ONCE A DAY TAKING PATANOL 0.1 % SOLUTION 1 DROP INTO BOTH EYES OPHTHALMIC TWICE A DAY NEEDED TAKING IBUPROFEN 600 MG TABLET 1 TABLET ORALLY THREE TIMES DAILY NEEDED TAKING NEURONTIN 300 MG CAPSULE 1 CAPSULE ORALLY BID TAKING MAXALT 10 MG TABLET 1 TABLET ORALLY DAILY NEEDED FOR MIGRAINES MAXIUM MIGRAINES A MONTH =2 MEDICATION LIST REVIEWED AND RECONCILED WITH THE PATIENT PAST MEDICAL HISTORY MULTIPLE SCLEROSIS (DR. WHITING) SEIZURES ULCERATIVE COLITIS (DR. GRANDA) CARPAL TUNNEL OSTEOPOROSIS; STARTED PROLIA 12/29 SMOKER NON-TOXIC MULTINODULAR GOITER STABLE ON US 2013 (PREVIOUSLY FOLLOWED BY DR. GARCÍA) BL CARPEL TUNNEL - NO SURGERY ECHO 2004 MILD GLOBAL HYPOKINESIS LV EF 50% RT SCIATICA 2018 MINI BOWEL PERFORATION 2002 ALLERGIES MTX: HAIR LOSS: SIDE EFFECTS FLAGYL: RED RASH: ALLERGY SURGICAL HISTORY TONSILLECTOMY 9 YEARS OLD ADENOIDECTOMY 9 YEARS OLD COLONSCOPY//NAN 04/07/2010,03/2014 & 2016 COLPOSCOPY CONIZATION FAMILY HISTORY FATHER: ALIVE 71 YRS, POLYMYALGIA, DIAGNOSED WITH HEART DISEASE MOTHER: ALIVE 79 YRS, HTN, HIGH CHOLESTEROL, CHOLECYSTECTOMY, DIAGNOSED WITH HYPERTENSION SIBLINGS: ALIVE 57,48 YRS DAUGHTER(S): ALIVE 27,23 YRS MATERNAL GRAND FATHER: BLADDER CANCER AT AGE 80 MATERNAL GRAND MOTHER: , HEART DISEASE, CHF, BYPASS SURGERY MATERNAL UNCLE: , COMPLICATIONS OF IDDM, CHF 2 SISTER(S) - HEALTHY. 2DAUGHTER(S) - HEALTHY. DENIES BREAST, COLON OR OVARIAN CANCERS. SOCIAL HISTORY GENERAL: TOBACCO USE ARE YOU A:CURRENT SMOKER ARE YOU INTERESTED IN QUITTING?NOT READY TO QUIT COUNSELED THE PATIENT ON SMOKING EFFECTS, EDUCATION [id number]/03/2019 HOW MANY CIGARETTES A DAY DO YOU SMOKE?6-10 HOW SOON AFTER YOU WAKE UP DO YOU SMOKE YOUR FIRST CIGARETTE?AFTER 60 MIN HOW OFTEN DO YOU SMOKE CIGARETTES?EVERY DAY PATIENT COUNSELED ON THE DANGERS OF TOBACCO USE AND URGED TO QUIT:11/14/2018 LATEX QUESTIONNAIRE LATEX ALLERGY : HAVE YOU EVER DEVELOPED ANY TYPE OF REACTION AFTER HANDLING LATEX PRODUCTS SUCH RUBBER GLOVES, CONDOMS, DIAPHRAGMS, BALLOONS, SOCKS, OR UNDERWEAR?NO LATEX ALLERGY : HAVE YOU EVER DEVELOPED ANY TYPE OF REACTION DURING OR AFTER DENTAL APPOINTMENT, VAGINAL/RECTAL EXAMINATION, SURGICAL PROCEDURE, OR ANY OTHER EXPOSURE?NO LATEX RISK : HAVE YOU EVER HAD ANY DIFFICULTY BREATHING OR HIVES AFTER EATING OR HANDLING ANY FRUITS, OR VEGETABLES; SUCH KIWI, BANANAS, STONE FRUITS, OR CHESTNUTSNO LATEX RISK : DO YOU HAVE A PREVIOUS PERSONAL HISTORY OF MORE THAN NINE SURGERIES, SPINA BIFIDA, OR REPEATED CATHERTIZATIONS? NO LATEX RISK : ARE YOU FREQUENTLY EXPOSED TO LATEX PRODUCTS IN YOUR OCCUPATION?NO DATE ASKED : 01/17/2019 ALCOHOL SCREENING DID YOU HAVE A DRINK CONTAINING ALCOHOL IN THE PAST YEAR?NO POINTS0 INTERPRETATIONNEGATIVE RECREATIONAL DRUG USE DRUG USE?NO CAFFEINE NONE. SEXUAL HX HAD SEX IN THE LAST 12 MONTHS (VAGINAL, ORAL, OR ANAL)?YES WITHMEN ONLY HAVE YOU EVER HAD AN STD?NO LMP:POST MENOPAUSE HIV / HEP-C SCREENING HIV TEST OFFERED TO PATIENT:YES DATE OFFERED:02/07/2018 TEST ACCEPTED:NO REASON:PATIENT DECLINED BROCHURE PROVIDED TO PATIENTYES UATSDIN [id number] ANABAPTISM LANGUAGE NORTHERN IRISH. 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 DIET: NO HX EATING DISORDERS. EXERCISE: NO REGULAR EXERCISE. MARITAL STATUS: X 32 YRS. OTHERS AT HOME: SPOUSE, YOUNGEST DAUGHTER IN COLLEGE. NEW PATIENT PAIN DIARY FROM 0-10, WHAT LEVEL IS YOUR PAIN TODAY?7 PAIN CLINIC PFS, CLERGY, PUBLIC HEALTH REFERRALS PFS REFERRAL NEEDED?NO CLERGY REFERRAL NEEDED?NO PUBLIC HEALTH REFERRAL NEEDED?NO WAS THE PROVIDER NOTIFIED OF ANY PERTINENT INFO? N/A HAS THE PATIENT BEEN EDUCATED REGARDING HIS/HER PLAN OF CARE?YES HAS THE PATIENT BEEN EDUCATED REGARDING PAIN, THE RISK FOR PAIN, THE IMPORTANCE OF EFFECTIVE PAIN MANAGEMENT, AND THE PAIN ASSESSMENT PROCESS?YES ADVANCE DIRECTIVE ADVANCE DIRECTIVE DISCUSSED WITH PATIENT:YES HCP-1. -STACEY [phone]. 2. MARIA DEL ROSARIO CRUZ- DAUGHTER [phone] REVIEWED WITH PATIENT 08/13/18 1343 JSREVIEWED WITH PATIENT 09/12/18 1454 LAS10/10/18 1041 REVIEWED WITH PT. AD10/28/18 1345 REVIEWED WITH PT. ADREVIEWED WITH PT 11/14/2018 0945 LAS REVIEWED WITH PT 01/17/19 1003 BV. HOSPITALIZATION/MAJOR DIAGNOSTIC PROCEDURE CHILDBIRTH X2 MS 1992 REVIEW OF SYSTEMS REVIEWED BY: PROVIDER: CARTER JORDAN . CONSTITUTIONAL: ANY CHANGE IN YOUR MEDICAL CONDITION? NO . CHILLS NO . FEVER NO . INFECTION: DO YOU HAVE NEW INFECTIONS? NO . DO YOU HAVE HISTORY OF MRSA? NO . MUSCULOSKELETAL: ANY NEW PATTERNS OF PAIN OR NUMBNESS? YES, INCREASING INTENSITY OF PAIN IN RIGHT LEG OVER THE PAST COUPLE MONTHS. . GASTROENTEROLOGY: ANY NEW CHANGE IN BOWEL CONTROL? NO . GENITOURINARY: ANY NEW CHANGE IN BLADDER CONTROL? NO . IS THERE A CHANCE YOU COULD BE ? NO . HEMATOLOGY/LYMPH: DO YOU TAKE ANY BLOOD THINNERS? (FOR EXAMPLE- COUMADIN, PLAVIX, AGGRENOX, PLATEL, PRADAXA, OR XARELTO) NO . WHEN WAS YOUR LAST DOSE? DATE: TIME: . NEUROLOGY: HAVE YOU FALLEN IN THE PAST 12 MONTHS? NO . ANY NEW EXTREMITY NUMBNESS OR WEAKNESS? NO . CARDIOLOGY: DO YOU HAVE A PACEMAKER OR DEFIBRILLATOR? NO . RESPIRATORY: HAVE YOU BEEN SICK IN THE PAST WEEK? NO . FEVER NO . FLU LIKE SYMPTOMS? NO . COUGH NO . INTEGUMENTARY: DO YOU HAVE ANY RASHES OR OPEN SORES? NO . ALLERGIC/IMMUNO: ARE YOU ALLERGIC TO IV DYE? NO . ANY NEW ALLERGIES? NO . PSYCHIATRIC: DO YOU HAVE THOUGHTS OF HURTING YOURSELF OR SOMEONE ELSE? NO . ARE YOU ABUSED, NEGLECTED, OR IN AN UNSAFE ENVIRONMENT? NO . ENDOCRINOLOGY: ARE YOU DIABETIC? NO . OTHER: DO YOU NEED ANY PRESCRIPTIONS? NO . IF YES, PLEASE LIST: ____ . ANY NEW PROBLEMS WITH YOUR MEDICATIONS? NO . WHEN DID YOU LAST EAT? ____ . WHEN DID YOU LAST DRINK? ____ . WHAT DID YOU LAST DRINK? ____ . NAME OF PERSON DRIVING YOU HOME? ____ . DO YOU HAVE ANY OTHER QUESTIONS OR CONCERNS NO . VITAL SIGNS WT 128.4 LBS, HT 66.5 IN, BMI 20.41 INDEX, BP 103/61 MM HG, HR 75 /MIN, RR 16 /MIN, TEMP 97.5 F, OXYGEN SAT % 98%, NA INITIALS AW 0958, REVIEWED BY: BV. EXAMINATION GENERAL EXAMINATION: GENERAL APPEARANCE:AWAKE,ALERT ,PLEAASANT . PSYCHAFFECT NORMAL . LUNGS:LUNG WEIR ARE CLEAR TO AUSCULTATION BILATERALLY. GOOD MOVEMENT OF AIR . HEART:S1, S2 IN A REGULAR RATE AND RHYTHM. NO SIGNIFICANT MURMURS, RUBS OR GALLOPS NOTED . LUMBAR SACRAL SPINEPALPATION: NEG FOR PAIN OVER L/S SPINE. NEG FOR PAIN OVER L/S PARASPINALS . NEUROLOGIC EXAM:PARATHESIAS TO LIGHT TOUCH RIGHT BELOW KNEE. DIAGNOSTIC:MRI L/S SPINE-04/2018. ASSESSMENTS DISC DISPLACEMENT, LUMBAR - M51.26 (PRIMARY) LUMBOSACRAL RADICULOPATHY - M54.17 TREATMENT DISC DISPLACEMENT, LUMBAR NOTES: RIGHT L5/S1 LESI. PROCEDURE CODES FA211 ESTABILISHED PATIENT [facility] FACILITY CHARGE DISPOSITION & COMMUNICATION FOLLOW UP POST (REASON: RIGHT L5/S1 LESI) ELECTRONICALLY SIGNED BY JULIAN MENDOZA ON 01/17/2019 AT 11:34 AM EST DISCLAIMER : THIS IS A VISIT SUMMARY EXTRACTED FROM THE [facility] CHART. IT IS NOT A COPY OF THE [facility] PROGRESS NOTE. MTDD
== END ==
LOC: M PAIN 09:45
PROVIDERS: ATTEND Nurse Practitioner Family
DX: M51.26 Other intervertebral disc displacement, lumbar region (principal); M54.17 Radiculopathy, lumbosacral region; G89.29 Other chronic pain; G35 Multiple sclerosis; R56.9 Unspecified convulsions; M81.0 Age-related osteoporosis without current pathological fracture; F17.210 Nicotine dependence, cigarettes, uncomplicated; Z88.1 Allergy status to other antibiotic agents; Z88.8 Allergy status to other drugs, medicaments and biological substances; Z79.899 Other long term (current) drug therapy

== ENCOUNTER → 2019-02-06 | Outpatient (CLI) | payer MEDICARE ==
--- NOTE | 2019-02-06 14:21 | REP ---
Partial lumbar spine series: Three views . History: Injection procedure for pain. 10 seconds of fluoroscopy time is reported. Findings: A sequence of three fluoroscopically obtained last image hold procedural spot radiographs of the lumbar spine document needle position and contrast injection associated with injection procedure. Electronically Signed by Karri Renae MD 02/06/2019 02:13 P
--- NOTE | 2019-02-08 01:11 | ECWPNPC ---
PATIENT NAME: MARY NAIR : 1960 GENDER: FEMALE VISIT DATE: 02/06/2019 DISCHARGE DATE: 02/06/19 1228 VISIT LOCKED DATE TIME: PHYSICIAN: BEV BARBOZA MD PHYSICIAN PAGER NO: [phone] RESOURCE: BEV BARBOZA MD REASON FOR APPOINTMENT 1. RIGHT L5/S1 LESI HISTORY OF PRESENT ILLNESS HISTORY OF PRESENT ILLNESS: PAIN THE PATIENT DESCRIBES THE PAIN... FALL RISK SCREENING: SCREENING :NO FALLS REPORTED IN THE LAST YEAR CURRENT MEDICATIONS TAKING PROLIA 60 MG/ML SOLUTION DIRECTED SUBCUTANEOUS Q SIX MONTHS, NOTES: 6 MONTHS AGO TAKING ASACOL 800 MG TABLET DELAYED RELEASE 1 TABLET ORALLY TWICE A DAY, NOTES: 0530 TAKING BACLOFEN 20 MG TABLET 1 TABLET ORALLY DAILY, NOTES: 02/05/19@1900 TAKING DEPAKOTE ER 500 MG TABLET EXTENDED RELEASE 24 HOUR 1 TABLET ORALLY TWICE A DAY, NOTES: 0530 TAKING PROVIGIL 100 MG TABLET 1 TABLET ORALLY ONCE A DAY, NOTES: 0530 TAKING TECFIDERA 240 MG TABLET 1 TABLET ORALLY TWICE A DAY, NOTES: 0530 TAKING CALCIUM 600 + D 600-400 MG-UNIT TABLET 1 TABLET ORALLY DAILY, NOTES: 0530 TAKING VITAMIN D-3 2000 UNITS CAPSULE 1 CAPSULE ORALLY ONCE A DAY, NOTES: 0530 TAKING VITAMIN E 1000 UNIT CAPSULE 1 CAPSULE ORALLY ONCE A DAY, NOTES: 0530 TAKING PATANOL 0.1 % SOLUTION 1 DROP INTO BOTH EYES OPHTHALMIC TWICE A DAY NEEDED, NOTES: NONE RECENTLY TAKING IBUPROFEN 600 MG TABLET 1 TABLET ORALLY TWICE DAILY, NOTES: 0530 TAKING NEURONTIN 300 MG CAPSULE 1 CAPSULE ORALLY BID, NOTES: 0530 TAKING MAXALT 10 MG TABLET 1 TABLET ORALLY DAILY NEEDED FOR MIGRAINES MAXIUM MIGRAINES A MONTH =2, NOTES: NONE RECENTLY MEDICATION LIST REVIEWED AND RECONCILED WITH THE PATIENT PAST MEDICAL HISTORY MULTIPLE SCLEROSIS (DR. WHITING) SEIZURES ULCERATIVE COLITIS (DR. GRANDA) CARPAL TUNNEL OSTEOPOROSIS; STARTED PROLIA 12/29 SMOKER NON-TOXIC MULTINODULAR GOITER STABLE ON US 2013 (PREVIOUSLY FOLLOWED BY DR. GARCÍA) BL CARPEL TUNNEL - NO SURGERY ECHO 2004 MILD GLOBAL HYPOKINESIS LV EF 50% RT SCIATICA 2018 MINI BOWEL PERFORATION 2002 ALLERGIES MTX: HAIR LOSS - SIDE EFFECTS FLAGYL: RED RASH - ALLERGY SURGICAL HISTORY TONSILLECTOMY 9 YEARS OLD ADENOIDECTOMY 9 YEARS OLD COLONSCOPY//NAN 04/07/2010,03/2014 & 2015 COLPOSCOPY CONIZATION FAMILY HISTORY FATHER: 71 YRS, POLYMYALGIA, DIAGNOSED WITH HEART DISEASE MOTHER: ALIVE 79 YRS, HTN, HIGH CHOLESTEROL, CHOLECYSTECTOMY, HYPERTENSION SIBLINGS: ALIVE 57,48 YRS DAUGHTER(S): ALIVE 27,23 YRS MATERNAL GRAND FATHER: BLADDER CANCER AT AGE 80 MATERNAL GRAND MOTHER: , HEART DISEASE, CHF, BYPASS SURGERY MATERNAL UNCLE: , COMPLICATIONS OF IDDM, CHF 2 SISTER(S) - HEALTHY. 2DAUGHTER(S) - HEALTHY. DENIES BREAST, COLON OR OVARIAN CANCERS.12/29/18 [place]. SOCIAL HISTORY GENERAL: TOBACCO USE ARE YOU A:CURRENT SMOKER ARE YOU INTERESTED IN QUITTING?NOT READY TO QUIT COUNSELED THE PATIENT ON SMOKING EFFECTS, EDUCATION [id number]/28/2019 HOW MANY CIGARETTES A DAY DO YOU SMOKE?6-10 HOW SOON AFTER YOU WAKE UP DO YOU SMOKE YOUR FIRST CIGARETTE?AFTER 60 MIN HOW OFTEN DO YOU SMOKE CIGARETTES?EVERY DAY PATIENT COUNSELED ON THE DANGERS OF TOBACCO USE AND URGED TO QUIT:11/14/2018 LATEX QUESTIONNAIRE LATEX ALLERGY : HAVE YOU EVER DEVELOPED ANY TYPE OF REACTION AFTER HANDLING LATEX PRODUCTS SUCH RUBBER GLOVES, CONDOMS, DIAPHRAGMS, BALLOONS, SOCKS, OR UNDERWEAR?NO LATEX ALLERGY : HAVE YOU EVER DEVELOPED ANY TYPE OF REACTION DURING OR AFTER DENTAL APPOINTMENT, VAGINAL/RECTAL EXAMINATION, SURGICAL PROCEDURE, OR ANY OTHER EXPOSURE?NO LATEX RISK : HAVE YOU EVER HAD ANY DIFFICULTY BREATHING OR HIVES AFTER EATING OR HANDLING ANY FRUITS, OR VEGETABLES; SUCH KIWI, BANANAS, STONE FRUITS, OR CHESTNUTSNO LATEX RISK : DO YOU HAVE A PREVIOUS PERSONAL HISTORY OF MORE THAN NINE SURGERIES, SPINA BIFIDA, OR REPEATED CATHERTIZATIONS? NO LATEX RISK : ARE YOU FREQUENTLY EXPOSED TO LATEX PRODUCTS IN YOUR OCCUPATION?NO DATE ASKED : 02/06/2019 ALCOHOL SCREENING DID YOU HAVE A DRINK CONTAINING ALCOHOL IN THE PAST YEAR?NO POINTS0 INTERPRETATIONNEGATIVE RECREATIONAL DRUG USE DRUG USE?NO CAFFEINE NONE. SEXUAL HX HAD SEX IN THE LAST 12 MONTHS (VAGINAL, ORAL, OR ANAL)?YES WITHMEN ONLY HAVE YOU EVER HAD AN STD?NO LMP:POST MENOPAUSE HIV / HEP-C SCREENING HIV TEST OFFERED TO PATIENT:YES DATE OFFERED:02/07/2018 TEST ACCEPTED:NO REASON:PATIENT DECLINED BROCHURE PROVIDED TO PATIENTYES YARSANISM [id number] PENTECOSTALISM LANGUAGE FINNISH. 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 DIET: NO HX EATING DISORDERS. EXERCISE: NO REGULAR EXERCISE. MARITAL STATUS: X 32 YRS. OTHERS AT HOME: SPOUSE, YOUNGEST DAUGHTER IN COLLEGE. NEW PATIENT PAIN DIARY FROM 0-10, WHAT LEVEL IS YOUR PAIN TODAY?7 PAIN CLINIC PFS, CLERGY, PUBLIC HEALTH REFERRALS PFS REFERRAL NEEDED?NO CLERGY REFERRAL NEEDED?NO PUBLIC HEALTH REFERRAL NEEDED?NO WAS THE PROVIDER NOTIFIED OF ANY PERTINENT INFO? N/A HAS THE PATIENT BEEN EDUCATED REGARDING HIS/HER PLAN OF CARE?YES HAS THE PATIENT BEEN EDUCATED REGARDING PAIN, THE RISK FOR PAIN, THE IMPORTANCE OF EFFECTIVE PAIN MANAGEMENT, AND THE PAIN ASSESSMENT PROCESS?YES ADVANCE DIRECTIVE ADVANCE DIRECTIVE DISCUSSED WITH PATIENT:YES HCP-1. -STACEY [phone]. 2. MARIA DEL ROSARIO CRUZ- DAUGHTER [phone] REVIEWED WITH PATIENT 08/13/18 1343 JSREVIEWED WITH PATIENT 09/12/18 1454 LAS10/10/18 1041 REVIEWED WITH PT. AD10/28/18 1345 REVIEWED WITH PT. ADREVIEWED WITH PT 11/14/2018 0945 LAS REVIEWED WITH PT 01/17/19 1003 BV. HOSPITALIZATION/MAJOR DIAGNOSTIC PROCEDURE CHILDBIRTH X2 MS 1992 REVIEW OF SYSTEMS REVIEWED BY: PROVIDER: . CONSTITUTIONAL: ANY CHANGE IN YOUR MEDICAL CONDITION? NO . CHILLS NO . FEVER NO . INFECTION: DO YOU HAVE NEW INFECTIONS? NO . DO YOU HAVE HISTORY OF MRSA? NO . MUSCULOSKELETAL: ANY NEW PATTERNS OF PAIN OR NUMBNESS? NO . GASTROENTEROLOGY: ANY NEW CHANGE IN BOWEL CONTROL? NO . GENITOURINARY: ANY NEW CHANGE IN BLADDER CONTROL? NO . IS THERE A CHANCE YOU COULD BE ? NO . HEMATOLOGY/LYMPH: DO YOU TAKE ANY BLOOD THINNERS? (FOR EXAMPLE- COUMADIN, PLAVIX, AGGRENOX, PLATEL, PRADAXA, OR XARELTO) NO . WHEN WAS YOUR LAST DOSE? DATE: TIME: . NEUROLOGY: HAVE YOU FALLEN IN THE PAST 12 MONTHS? NO . ANY NEW EXTREMITY NUMBNESS OR WEAKNESS? NO . CARDIOLOGY: DO YOU HAVE A PACEMAKER OR DEFIBRILLATOR? NO . RESPIRATORY: HAVE YOU BEEN SICK IN THE PAST WEEK? NO . FEVER NO . FLU LIKE SYMPTOMS? NO . COUGH NO . INTEGUMENTARY: DO YOU HAVE ANY RASHES OR OPEN SORES? NO . ALLERGIC/IMMUNO: ARE YOU ALLERGIC TO IV DYE? NO . ANY NEW ALLERGIES? NO . PSYCHIATRIC: DO YOU HAVE THOUGHTS OF HURTING YOURSELF OR SOMEONE ELSE? NO . ARE YOU ABUSED, NEGLECTED, OR IN AN UNSAFE ENVIRONMENT? NO . ENDOCRINOLOGY: ARE YOU DIABETIC? NO . OTHER: DO YOU NEED ANY PRESCRIPTIONS? NO . IF YES, PLEASE LIST: ____ . ANY NEW PROBLEMS WITH YOUR MEDICATIONS? NO . WHEN DID YOU LAST EAT? ____0515 . WHEN DID YOU LAST DRINK? ____0800 . WHAT DID YOU LAST DRINK? ____WATER . NAME OF PERSON DRIVING YOU HOME? ____STACEY NAIR . DO YOU HAVE ANY OTHER QUESTIONS OR CONCERNS NO . VITAL SIGNS WT 129.2 LBS, HT 66.5 IN, BMI 20.54 INDEX, BP 113/59 MM HG, HR 66 /MIN, RR 16 /MIN, TEMP 98.2 F, OXYGEN SAT % 99%, SAFE IN ENV? (Y/N) YES, NA INITIALS NC 10:25, REVIEWED BY: CLARENCE. ASSESSMENTS INTERVERTEBRAL DISC DISORDER WITH RADICULOPATHY OF LUMBOSACRAL REGION - M51.17 (PRIMARY) PROCEDURES PRE PROCEDURE DIAGNOSIS LUMBOSACRAL DISC DISORDER WITH RADICULOPATHY POST PROCEDURE DIAGNOSIS LUMBOSACRAL DISC DISORDER WITH RADICULOPATHY PROCEDURE LUMBAR EPIDURAL STEROID INJECTION UNDER FLUOROSCOPIC GUIDANCE SURGEON DR. BEV BARBOZA TICKETER NONE ANESTHESIA LOCAL PRE PROCEDURE NOTE THE PATIENT HAS A HISTORY OF CHRONIC LOW BACK PAIN. I EVALUATE THE PATIENT AND REVIEWED THE CHART. I WENT OVER THE RISKS, ALTERNATIVES, AND BENEFITS ASSOCIATED WITH THIS PROCEDURE. THE PATIENT WOULD LIKE TO PROCEED AND GIVE CONSENT TO PERFORMED THE PROCEDURE. THE PATIENT DENIES UNEXPLAINABLE WEIGHT LOSS, FEVER, CHILLS, OR NEW CHANGES IN URINARY OR BOWEL CONTROL. DESCRIPTION OF PROCEDURE THE PATIENT WAS BROUGHT TO THE PROCEDURE ROOM AND PLACED IN THE PRONE POSITION. THE LUMBOSACRAL AREA WAS CLEANED WITH BETADINE SOLUTION AND DRAPED ASEPTICALLY. THE PROCEDURE WAS DONE UNDER STERILE CONDITIONS. I CHECKED LATERALITY AND THE LEVEL WHERE THE PROCEDURE WAS GOING TO BE PERFORMED WITH THE PATIENT AND THE SUPPORTING STAFF AT THE MOMENT OF THE TIME OUT IN THE PROCEDURE ROOM. UNDER FLUOROSCOPIC GUIDANCE, THE TARGET POINT WAS SELECTED AT THE INTERLAMINAR LEVEL OF L5-S1. LIDOCAINE WAS USED TO NUMB THE SKIN AND THE SUBCUTANEOUS TISSUE BELOW IT. EPIDURAL TUOHY NEEDLE, 17-GAUGE, WAS ADVANCED UNDER FLUOROSCOPIC GUIDANCE AND FOLLOWING PATIENT FEEDBACK UNTIL THE EPIDURAL SPACE WAS REACHED, 7 CM DEEP INTO THE SKIN BY THE LOSS OF RESISTANCE TECHNIQUE. ISOVUE M DYE 30%, 0.25 ML, WAS INJECTED SHOWING ADEQUATE SPREAD OF THE DYE. THEN, A SOLUTION OF 3 ML OF NORMAL SALINE WITH DEPO-MEDROL 60 MG WAS INJECTED SLOWLY FOLLOWING PATIENT FEEDBACK. THERE WAS NO EVIDENCE OF BLOOD, PARESTHESIA OR CEREBROSPINAL FLUID DURING THE PROCEDURE. THE PATIENT WAS SENT TO THE RECOVERY ROOM. THE PATIENT WAS MOVING THE EXTREMITIES AND DOING WELL. THERE WAS NO COMPLICATION DURING THE PROCEDURE. FLUOROSCOPY TIME WAS 10 SECONDS. POST PROCEDURE NOTE THE PATIENT WILL BE SEEN IN A FOLLOW UP IN THE NEXT FEW WEEKS. INSTRUCTIONS WERE GIVEN, QUESTIONS WERE ANSWERED, AND THE PATIENT EXPRESSED UNDERSTANDING AND AGREES WITH THE PLAN. I, ELIZABETH SCHNEIDER, DOCUMENTED THE ABOVE INFORMATION ACTING A SCRIBE FOR DR. BARBOZA. I HAVE REVIEWED THE ABOVE DOCUMENT, WRITTEN BY ELIZABETH PEREZ AND I VERIFY THAT IT IS ACCURATE. DIAGNOSTIC IMAGING [facility] FLUORO GUIDE SPINE INJECTION (PAIN)[id number] PROCEDURE CODES 6045F RADXPS IN END [id number] PXD [id number] LUMBAR/SACRAL W/ IMAGING DISPOSITION & COMMUNICATION FOLLOW UP 2 WEEKS ELECTRONICALLY SIGNED BY BEV BARBOZA MD, MD ON 02/07/2019 AT 03:39 PM EDT DISCLAIMER : THIS IS A VISIT SUMMARY EXTRACTED FROM THE [facility] CHART. IT IS NOT A COPY OF THE [facility] PROGRESS NOTE. MELLISSAD
== END ==
LOC: M PAIN 10:15
PROVIDERS: ATTEND Anesthesiology
DX: G89.29 Other chronic pain (principal); M51.17 Intervertebral disc disorders with radiculopathy, lumbosacral region; G35 Multiple sclerosis; R56.9 Unspecified convulsions; F17.210 Nicotine dependence, cigarettes, uncomplicated; M81.0 Age-related osteoporosis without current pathological fracture; Z79.1 Long term (current) use of non-steroidal anti-inflammatories (NSAID); Z79.899 Other long term (current) drug therapy; Z88.8 Allergy status to other drugs, medicaments and biological substances; Z87.738 Personal history of other specified (corrected) congenital malformations of digestive system
CPT/HCPCS: 62323; J1030; Q9967

== ENCOUNTER → 2019-02-14 | Outpatient (CLI) | payer MEDICARE ==
--- NOTE | 2019-02-14 11:55 | REPMRS ---
Patient History The patient states she had a clinical breast exam in 02/2019. No known family history of cancer. 3D TOMOSYNTHESIS WAS PERFORMED. Digital Woman Screen Mammo: February 14, 2019 - Exam #: [id number] Bilateral CC and MLO view(s) were taken. Technologist: Kamilah Ibarra, Technologist Prior study comparison: February 07, 2018, digital woman screen mammo performed at [facility]. December 11, 2016, digital woman screen mammo performed at [facility]. FINDINGS: The breast tissue is heterogeneously dense. This may lower the sensitivity of mammography. There has been no change in the appearance of the mammogram from the prior studies. There is a moderate amount of residual fibroglandular tissue which is fairly symmetric. There is no interval development of dominant mass, areas of architectural distortion, or clustered microcalcification typical of malignancy. Assessment: BI-RADS/ACR category 1 mammogram. Negative Mammogram. Recommendation Routine screening mammogram in 1 year (for women over age 40). This mammogram was interpreted with the aid of an FDA-approved computer-aided dectection system. Electronically Signed By: Alen Landry MD 02/14/19 4019
== END ==
LOC: M WHC 10:01
PROVIDERS: ATTEND Nurse Practitioner Women's Health
DX: Z12.31 Encounter for screening mammogram for malignant neoplasm of breast (principal)

== ENCOUNTER → 2019-03-06 | Outpatient (CLI) | payer MEDICARE ==
--- NOTE | 2019-03-22 23:59 | ECWPNPC ---
PATIENT NAME: MARY NAIR : 1960 GENDER: FEMALE VISIT DATE: 03/06/2019 DISCHARGE DATE: 03/06/19 1134 VISIT LOCKED DATE TIME: PHYSICIAN: CARTER ASTUDILLO PHYSICIAN PAGER NO: [phone] RESOURCE: CARTER ASTUDILLO REASON FOR APPOINTMENT 1. POST PROC HISTORY OF PRESENT ILLNESS HISTORY OF PRESENT ILLNESS: HERE FOR POST PROCEDURE F/U.HAD LESI [id number].REPORTING >50% IMPROVEMENT OVERALL WITH BACK PAIN AND RIGHT LEG PAIN.CONTINUES TO HAVE RESIDUAL RIGHT ANTERIOR LATERAL TIBIA/FIBULA PAIN.RATING PAIN VAS 5/10. PAIN THE PATIENT DESCRIBES THE PAIN... THE PATIENT DESCRIBES THE PAIN... PAIN THE PATIENT DESCRIBES THE PAIN... THE PATIENT DESCRIBES THE PAIN... FALL RISK SCREENING: SCREENING :NO FALLS REPORTED IN THE LAST YEAR CURRENT MEDICATIONS TAKING ASACOL 800 MG TABLET DELAYED RELEASE 1 TABLET ORALLY TWICE A DAY TAKING BACLOFEN 20 MG TABLET 1 TABLET ORALLY DAILY TAKING DEPAKOTE ER 500 MG TABLET EXTENDED RELEASE 24 HOUR 1 TABLET ORALLY TWICE A DAY TAKING PROVIGIL 100 MG TABLET 1 TABLET ORALLY ONCE A DAY TAKING TECFIDERA 240 MG TABLET 1 TABLET ORALLY TWICE A DAY TAKING VITAMIN D-3 2000 UNITS CAPSULE 1 CAPSULE ORALLY ONCE A DAY TAKING VITAMIN E 1000 UNIT CAPSULE 1 CAPSULE ORALLY ONCE A DAY TAKING PATANOL 0.1 % SOLUTION 1 DROP INTO BOTH EYES OPHTHALMIC TWICE A DAY NEEDED TAKING IBUPROFEN 600 MG TABLET 1 TABLET ORALLY TWICE DAILY TAKING NEURONTIN 300 MG CAPSULE 1 CAPSULE ORALLY BID TAKING MAXALT 10 MG TABLET 1 TABLET ORALLY DAILY NEEDED FOR MIGRAINES MAXIUM MIGRAINES A MONTH =2 TAKING PROLIA 60 MG/ML SOLUTION DIRECTED SUBCUTANEOUS Q SIX MONTHS TAKING CALCIUM 600 + D 600-400 MG-UNIT TABLET 1 TABLET ORALLY DAILY MEDICATION LIST REVIEWED AND RECONCILED WITH THE PATIENT PAST MEDICAL HISTORY MULTIPLE SCLEROSIS (DR. WHITING) SEIZURES ULCERATIVE COLITIS (DR. GRANDA) CARPAL TUNNEL OSTEOPOROSIS; STARTED PROLIA 12/29 SMOKER NON-TOXIC MULTINODULAR GOITER STABLE ON US 2013 (PREVIOUSLY FOLLOWED BY DR. GARCÍA) BL CARPEL TUNNEL - NO SURGERY ECHO 2004 MILD GLOBAL HYPOKINESIS LV EF 50% RT SCIATICA 2018 MINI BOWEL PERFORATION 2002 LOW BACK PAIN ALLERGIES MTX: HAIR LOSS - SIDE EFFECTS FLAGYL: RED RASH - ALLERGY SURGICAL HISTORY TONSILLECTOMY 9 YEARS OLD ADENOIDECTOMY 9 YEARS OLD COLONSCOPY//NAN 04/07/2010,03/2014 & 2016 COLPOSCOPY CONIZATION FAMILY HISTORY FATHER: 71 YRS, POLYMYALGIA, DIAGNOSED WITH HEART DISEASE MOTHER: ALIVE 79 YRS, HTN, HIGH CHOLESTEROL, CHOLECYSTECTOMY, HYPERTENSION SIBLINGS: ALIVE 57,48 YRS DAUGHTER(S): ALIVE 27,23 YRS MATERNAL GRAND FATHER: BLADDER CANCER AT AGE 80 MATERNAL GRAND MOTHER: , HEART DISEASE, CHF, BYPASS SURGERY MATERNAL UNCLE: , COMPLICATIONS OF IDDM, CHF 2 SISTER(S) - HEALTHY. 2DAUGHTER(S) - HEALTHY. DENIES BREAST, COLON OR OVARIAN CANCERS.\\\\N2\\\\\\\\\\\\\\ FATHER FROM [place] DIEASE. SOCIAL HISTORY GENERAL: TOBACCO USE ARE YOU A:CURRENT SMOKER ARE YOU INTERESTED IN QUITTING?NOT READY TO QUIT PT DOES NOT WANT SMOKING CESSATION HANDOUT COUNSELED THE PATIENT ON SMOKING EFFECTS, EDUCATION INTACIXD01/25/2019 HOW MANY CIGARETTES A DAY DO YOU SMOKE?6-10 HOW SOON AFTER YOU WAKE UP DO YOU SMOKE YOUR FIRST CIGARETTE?AFTER 60 MIN HOW OFTEN DO YOU SMOKE CIGARETTES?EVERY DAY PATIENT COUNSELED ON THE DANGERS OF TOBACCO USE AND URGED TO QUIT:03/06/2019 HIV / HEP-C SCREENING HIV TEST OFFERED TO PATIENT:YES DATE OFFERED:02/14/2019 TEST ACCEPTED:NO REASON:PATIENT DECLINED BROCHURE PROVIDED TO PATIENTYES OTHERS AT HOME: SPOUSE, YOUNGEST DAUGHTER IN COLLEGE. DIET: NO HX EATING DISORDERS. LANGUAGE SINHALA. DOMESTIC VIOLENCE DO YOU FEEL SAFE IN YOUR ENVIRONMENT?YES NEW PATIENT PAIN DIARY FROM 0-10, WHAT LEVEL IS YOUR PAIN TODAY?7 RECREATIONAL DRUG USE DRUG USE?NO EXERCISE: NO REGULAR EXERCISE. LEARNING BARRIERS / SPECIAL NEEDS CHANGE FROM LAST VISIT?NO BARRIERS TO LEARNING?NO HEARING IMPAIRED?NO VISION IMPAIRED?YES :CORRECTIVE LENSES COGNITIVELY IMPAIRED?NO READINESS TO LEARN?YES LEARNING PREFERENCES?NO LEARNING CAPABILITIES PRESENT?YES EMOTIONAL BARRIERS?NO SPECIAL DEVICES?NO TELESALES AGENT NEEDED?NO PAIN CLINIC PFS, CLERGY, PUBLIC HEALTH REFERRALS PFS REFERRAL NEEDED?NO CLERGY REFERRAL NEEDED?NO PUBLIC HEALTH REFERRAL NEEDED?NO WAS THE PROVIDER NOTIFIED OF ANY PERTINENT INFO? N/A HAS THE PATIENT BEEN EDUCATED REGARDING HIS/HER PLAN OF CARE?YES HAS THE PATIENT BEEN EDUCATED REGARDING PAIN, THE RISK FOR PAIN, THE IMPORTANCE OF EFFECTIVE PAIN MANAGEMENT, AND THE PAIN ASSESSMENT PROCESS?YES LATEX QUESTIONNAIRE LATEX ALLERGY : HAVE YOU EVER DEVELOPED ANY TYPE OF REACTION AFTER HANDLING LATEX PRODUCTS SUCH RUBBER GLOVES, CONDOMS, DIAPHRAGMS, BALLOONS, SOCKS, OR UNDERWEAR?NO LATEX ALLERGY : HAVE YOU EVER DEVELOPED ANY TYPE OF REACTION DURING OR AFTER DENTAL APPOINTMENT, VAGINAL/RECTAL EXAMINATION, SURGICAL PROCEDURE, OR ANY OTHER EXPOSURE?NO LATEX RISK : HAVE YOU EVER HAD ANY DIFFICULTY BREATHING OR HIVES AFTER EATING OR HANDLING ANY FRUITS, OR VEGETABLES; SUCH KIWI, BANANAS, STONE FRUITS, OR CHESTNUTSNO LATEX RISK : DO YOU HAVE A PREVIOUS PERSONAL HISTORY OF MORE THAN NINE SURGERIES, SPINA BIFIDA, OR REPEATED CATHERTIZATIONS? NO LATEX RISK : ARE YOU FREQUENTLY EXPOSED TO LATEX PRODUCTS IN YOUR OCCUPATION?NO DATE ASKED : 02/06/2019 CAFFEINE NONE. ADVANCE DIRECTIVE ADVANCE DIRECTIVE DISCUSSED WITH PATIENT:YES HCP-1. -STACEY [phone]. 2. MARIA DEL ROSARIO CRUZ- DAUGHTER [phone] EPISCOPAL [id number] JAINISM MARITAL STATUS: X 32 YRS. 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 SEXUAL HX HAD SEX IN THE LAST 12 MONTHS (VAGINAL, ORAL, OR ANAL)?YES WITHMEN ONLY HAVE YOU EVER HAD AN STD?NO LMP:POST MENOPAUSE REVIEWED WITH PATIENT 08/13/18 1343 JSREVIEWED WITH PATIENT 09/12/18 1454 LAS10/10/18 1041 REVIEWED WITH PT. AD10/28/18 1345 REVIEWED WITH PT. ADREVIEWED WITH PT 11/14/2018 0945 LAS REVIEWED WITH PT 01/17/19 1003 BV REVIEWED WITH PATIENT 03/06/19 1106 JS. HOSPITALIZATION/MAJOR DIAGNOSTIC PROCEDURE CHILDBIRTH X2 MS 1993 REVIEW OF SYSTEMS REVIEWED BY: PROVIDER: CARTER JORDAN . CONSTITUTIONAL: ANY CHANGE IN YOUR MEDICAL CONDITION? NO . CHILLS NO . FEVER NO . INFECTION: DO YOU HAVE NEW INFECTIONS? NO . DO YOU HAVE HISTORY OF MRSA? NO . MUSCULOSKELETAL: ANY NEW PATTERNS OF PAIN OR NUMBNESS? NO . GASTROENTEROLOGY: ANY NEW CHANGE IN BOWEL CONTROL? NO . GENITOURINARY: ANY NEW CHANGE IN BLADDER CONTROL? NO . IS THERE A CHANCE YOU COULD BE ? NO . HEMATOLOGY/LYMPH: DO YOU TAKE ANY BLOOD THINNERS? (FOR EXAMPLE- COUMADIN, PLAVIX, AGGRENOX, PLATEL, PRADAXA, OR XARELTO) NO . WHEN WAS YOUR LAST DOSE? DATE: TIME: . NEUROLOGY: HAVE YOU FALLEN IN THE PAST 12 MONTHS? NO . ANY NEW EXTREMITY NUMBNESS OR WEAKNESS? NO . CARDIOLOGY: DO YOU HAVE A PACEMAKER OR DEFIBRILLATOR? NO . RESPIRATORY: HAVE YOU BEEN SICK IN THE PAST WEEK? NO . FEVER NO . FLU LIKE SYMPTOMS? NO . COUGH NO . INTEGUMENTARY: DO YOU HAVE ANY RASHES OR OPEN SORES? NO . ALLERGIC/IMMUNO: ARE YOU ALLERGIC TO IV DYE? NO . ANY NEW ALLERGIES? NO . PSYCHIATRIC: DO YOU HAVE THOUGHTS OF HURTING YOURSELF OR SOMEONE ELSE? NO . ARE YOU ABUSED, NEGLECTED, OR IN AN UNSAFE ENVIRONMENT? NO . ENDOCRINOLOGY: ARE YOU DIABETIC? NO . OTHER: DO YOU NEED ANY PRESCRIPTIONS? NO . IF YES, PLEASE LIST: ____ . ANY NEW PROBLEMS WITH YOUR MEDICATIONS? NO . WHEN DID YOU LAST EAT? ____ . WHEN DID YOU LAST DRINK? ____ . WHAT DID YOU LAST DRINK? ____ . NAME OF PERSON DRIVING YOU HOME? ____ . DO YOU HAVE ANY OTHER QUESTIONS OR CONCERNS NO . VITAL SIGNS WT 128.6 LBS, HT 66.5 IN, BMI 20.44 INDEX, BP 102/52 MM HG, HR 64 /MIN, RR 18 /MIN, TEMP 97.7 F, OXYGEN SAT % 94%, SAFE IN ENV? (Y/N) YES, NA INITIALS AW 1101, REVIEWED BY: HEIDY. EXAMINATION GENERAL EXAMINATION: GENERAL APPEARANCE:AWAKE,ALERT ,PLEAASANT . PSYCHAFFECT NORMAL . LUNGS:LUNG WEIR ARE CLEAR TO AUSCULTATION BILATERALLY. GOOD MOVEMENT OF AIR . HEART:S1, S2 IN A REGULAR RATE AND RHYTHM. NO SIGNIFICANT MURMURS, RUBS OR GALLOPS NOTED . ASSESSMENTS DISC DISPLACEMENT, LUMBAR - M51.26 (PRIMARY) LUMBOSACRAL RADICULOPATHY - M54.17 TREATMENT OTHERS START VOLTAREN GEL, 1 %, DIRECTED, TRANSDERMAL, APPLY SMALL AMOUNT TO AFFECTED AREA RIGHT ANKLE Q8H PRN PAIN, 30 DAY(S), 1, REFILLS 5 PROCEDURE CODES FA211 ESTABILISHED PATIENT RELIGIOUS FACILITY CHARGE DISPOSITION & COMMUNICATION FOLLOW UP 2 MONTHS ELECTRONICALLY SIGNED BY JULIAN MENDOZA ON 03/22/2019 AT 07:53 AM EDT DISCLAIMER : THIS IS A VISIT SUMMARY EXTRACTED FROM THE [employer] CHART. IT IS NOT A COPY OF THE [employer] PROGRESS NOTE. CESAR
== END ==
LOC: M PAIN 10:15
PROVIDERS: ATTEND Nurse Practitioner Family
DX: M51.26 Other intervertebral disc displacement, lumbar region (principal); M54.17 Radiculopathy, lumbosacral region; G35 Multiple sclerosis; F17.210 Nicotine dependence, cigarettes, uncomplicated; Z88.1 Allergy status to other antibiotic agents; Z79.899 Other long term (current) drug therapy

== ENCOUNTER → 2019-04-04 | Outpatient (REF) | payer MEDICARE | LOC: M LAB REF 13:58 | PROVIDERS: ATTEND Physician Assistant | DX: J02.9 Acute pharyngitis, unspecified (principal) ==

== ENCOUNTER → 2019-05-05 | Outpatient (CLI) | payer MEDICARE ==
--- NOTE | 2019-05-20 02:10 | ECWPNPC ---
PATIENT NAME: MARY NAIR : 1960 GENDER: FEMALE VISIT DATE: 05/05/2019 DISCHARGE DATE: 05/05/19 1123 VISIT LOCKED DATE TIME: PHYSICIAN: CARTER ASTUDILLO PHYSICIAN PAGER NO: [phone] RESOURCE: CARTER ASTUDILLO REASON FOR APPOINTMENT 1. RIGHT LEG HISTORY OF PRESENT ILLNESS HISTORY OF PRESENT ILLNESS: HERE FOR F/U OF CHRONIC LOW BACK PAIN AND RIGHT LEG PAIN.PAIN HAS ESCALATED BEGINNING OF MARCH AFTER RUNNING AFTER [place],ECSPECIALLY ALONG RIGHT LATERAL CALF AND FOOT.RATING PAIN VAS 6/10.HAS RESPONDED WELL TO L5/S1/LESI. PAIN THE PATIENT DESCRIBES THE PAIN... THE PATIENT DESCRIBES THE PAIN... FALL RISK SCREENING: SCREENING :NO FALLS REPORTED IN THE LAST YEAR CURRENT MEDICATIONS TAKING ASACOL 800 MG TABLET DELAYED RELEASE 1 TABLET ORALLY TWICE A DAY TAKING BACLOFEN 20 MG TABLET 1 TABLET ORALLY DAILY TAKING DEPAKOTE ER 500 MG TABLET EXTENDED RELEASE 24 HOUR 1 TABLET ORALLY TWICE A DAY TAKING PROVIGIL 100 MG TABLET 1 TABLET ORALLY ONCE A DAY TAKING TECFIDERA 240 MG TABLET 1 TABLET ORALLY TWICE A DAY TAKING VITAMIN D-3 2000 UNITS CAPSULE 1 CAPSULE ORALLY ONCE A DAY TAKING VITAMIN E 1000 UNIT CAPSULE 1 CAPSULE ORALLY ONCE A DAY TAKING PATANOL 0.1 % SOLUTION 1 DROP INTO BOTH EYES OPHTHALMIC TWICE A DAY NEEDED TAKING IBUPROFEN 600 MG TABLET 1 TABLET ORALLY TWICE DAILY TAKING NEURONTIN 300 MG CAPSULE 1 CAPSULE ORALLY BID TAKING MAXALT 10 MG TABLET 1 TABLET ORALLY DAILY NEEDED FOR MIGRAINES MAXIUM MIGRAINES A MONTH =2 TAKING PROLIA 60 MG/ML SOLUTION DIRECTED SUBCUTANEOUS Q SIX MONTHS TAKING CALCIUM 600 + D 600-400 MG-UNIT TABLET 1 TABLET ORALLY DAILY TAKING VOLTAREN 1 % GEL DIRECTED TRANSDERMAL APPLY SMALL AMOUNT TO AFFECTED AREA RIGHT ANKLE Q8H PRN PAIN MEDICATION LIST REVIEWED AND RECONCILED WITH THE PATIENT PAST MEDICAL HISTORY MULTIPLE SCLEROSIS (DR. WHITING) SEIZURES ULCERATIVE COLITIS (DR. GRANDA) CARPAL TUNNEL OSTEOPOROSIS; STARTED PROLIA 12/29 SMOKER NON-TOXIC MULTINODULAR GOITER STABLE ON US 2013 (PREVIOUSLY FOLLOWED BY DR. GARCÍA) BL CARPEL TUNNEL - NO SURGERY ECHO 2004 MILD GLOBAL HYPOKINESIS LV EF 50% RT SCIATICA 2017 MINI BOWEL PERFORATION 2002 LOW BACK PAIN RIGHT LEG PAIN ALLERGIES MTX: HAIR LOSS - SIDE EFFECTS FLAGYL: RED RASH - ALLERGY SURGICAL HISTORY TONSILLECTOMY 9 YEARS OLD ADENOIDECTOMY 9 YEARS OLD COLONSCOPY//NAN 04/07/2010,03/2014 & 2015 COLPOSCOPY CONIZATION FAMILY HISTORY FATHER: 71 YRS, POLYMYALGIA, DIAGNOSED WITH HEART DISEASE MOTHER: ALIVE 79 YRS, HTN, HIGH CHOLESTEROL, CHOLECYSTECTOMY, HYPERTENSION SIBLINGS: ALIVE 57,48 YRS DAUGHTER(S): ALIVE 27,23 YRS MATERNAL GRAND FATHER: BLADDER CANCER AT AGE 80 MATERNAL GRAND MOTHER: , HEART DISEASE, CHF, BYPASS SURGERY MATERNAL UNCLE: , COMPLICATIONS OF IDDM, CHF 2 SISTER(S) - HEALTHY. 2DAUGHTER(S) - HEALTHY. DENIES BREAST, COLON OR OVARIAN CANCERS.\\\\N2\\\\\\\\\\\\\ FATHER FROM [place] D[place]. SOCIAL HISTORY GENERAL: TOBACCO USE ARE YOU A:CURRENT SMOKER ARE YOU INTERESTED IN QUITTING?NOT READY TO QUIT PT DOES NOT WANT SMOKING CESSATION HANDOUT COUNSELED THE PATIENT ON SMOKING EFFECTS, EDUCATION [id number]/24/2019 HOW MANY CIGARETTES A DAY DO YOU SMOKE?6-10 HOW SOON AFTER YOU WAKE UP DO YOU SMOKE YOUR FIRST CIGARETTE?AFTER 60 MIN HOW OFTEN DO YOU SMOKE CIGARETTES?EVERY DAY PATIENT COUNSELED ON THE DANGERS OF TOBACCO USE AND URGED TO QUIT:05/05/2019 HIV / HEP-C SCREENING HIV TEST OFFERED TO PATIENT:YES DATE OFFERED:02/14/2019 TEST ACCEPTED:NO REASON:PATIENT DECLINED BROCHURE PROVIDED TO PATIENTYES OTHERS AT HOME: SPOUSE, YOUNGEST DAUGHTER IN COLLEGE. DIET: NO HX EATING DISORDERS. LANGUAGE GRENADIAN. DOMESTIC VIOLENCE DO YOU FEEL SAFE IN YOUR ENVIRONMENT?YES NEW PATIENT PAIN DIARY FROM 0-10, WHAT LEVEL IS YOUR PAIN TODAY?7 RECREATIONAL DRUG USE DRUG USE?NO EXERCISE: NO REGULAR EXERCISE. 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 N/A HAS THE PATIENT BEEN EDUCATED REGARDING HIS/HER PLAN OF CARE?YES HAS THE PATIENT BEEN EDUCATED REGARDING PAIN, THE RISK FOR PAIN, THE IMPORTANCE OF EFFECTIVE PAIN MANAGEMENT, AND THE PAIN ASSESSMENT PROCESS?YES LATEX QUESTIONNAIRE LATEX ALLERGY : HAVE YOU EVER DEVELOPED ANY TYPE OF REACTION AFTER HANDLING LATEX PRODUCTS SUCH RUBBER GLOVES, CONDOMS, DIAPHRAGMS, BALLOONS, SOCKS, OR UNDERWEAR?NO LATEX ALLERGY : HAVE YOU EVER DEVELOPED ANY TYPE OF REACTION DURING OR AFTER DENTAL APPOINTMENT, VAGINAL/RECTAL EXAMINATION, SURGICAL PROCEDURE, OR ANY OTHER EXPOSURE?NO LATEX RISK : HAVE YOU EVER HAD ANY DIFFICULTY BREATHING OR HIVES AFTER EATING OR HANDLING ANY FRUITS, OR VEGETABLES; SUCH KIWI, BANANAS, STONE FRUITS, OR CHESTNUTSNO LATEX RISK : DO YOU HAVE A PREVIOUS PERSONAL HISTORY OF MORE THAN NINE SURGERIES, SPINA BIFIDA, OR REPEATED CATHERTIZATIONS? NO LATEX RISK : ARE YOU FREQUENTLY EXPOSED TO LATEX PRODUCTS IN YOUR OCCUPATION?NO DATE ASKED : 02/06/2019 CAFFEINE NONE. ADVANCE DIRECTIVE ADVANCE DIRECTIVE DISCUSSED WITH PATIENT:YES HCP-1. -STACEY [phone]. 2. MARIA DEL ROSARIO CRUZ- DAUGHTER [phone] MORMONISM [id number] LATTER-DAY MARITAL STATUS: X 32 YRS. 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 SEXUAL HX HAD SEX IN THE LAST 12 MONTHS (VAGINAL, ORAL, OR ANAL)?YES WITHMEN ONLY HAVE YOU EVER HAD AN STD?NO LMP:POST MENOPAUSE REVIEWED WITH PATIENT 08/13/18 1343 JSREVIEWED WITH PATIENT 09/12/18 1454 LAS10/10/18 1041 REVIEWED WITH PT. AD10/28/18 1345 REVIEWED WITH PT. ADREVIEWED WITH PT 11/14/2018 0945 LAS REVIEWED WITH PATIENT 05/05/19 1046 JSREVIEWED WITH PT 01/17/19 1003 BV REVIEWED WITH PATIENT 03/06/19 1106 JS. HOSPITALIZATION/MAJOR DIAGNOSTIC PROCEDURE CHILDBIRTH X2 MS 1992 REVIEW OF SYSTEMS REVIEWED BY: PROVIDER: CARTER JORDAN . CONSTITUTIONAL: ANY CHANGE IN YOUR MEDICAL CONDITION? NO . CHILLS NO . FEVER NO . INFECTION: DO YOU HAVE NEW INFECTIONS? NO . DO YOU HAVE HISTORY OF MRSA? NO . MUSCULOSKELETAL: ANY NEW PATTERNS OF PAIN OR NUMBNESS? NO . GASTROENTEROLOGY: ANY NEW CHANGE IN BOWEL CONTROL? NO . GENITOURINARY: ANY NEW CHANGE IN BLADDER CONTROL? NO . IS THERE A CHANCE YOU COULD BE ? NO . HEMATOLOGY/LYMPH: DO YOU TAKE ANY BLOOD THINNERS? (FOR EXAMPLE- COUMADIN, PLAVIX, AGGRENOX, PLATEL, PRADAXA, OR XARELTO) NO . WHEN WAS YOUR LAST DOSE? DATE: TIME: . NEUROLOGY: HAVE YOU FALLEN IN THE PAST 12 MONTHS? NO . ANY NEW EXTREMITY NUMBNESS OR WEAKNESS? NO . CARDIOLOGY: DO YOU HAVE A PACEMAKER OR DEFIBRILLATOR? NO . RESPIRATORY: HAVE YOU BEEN SICK IN THE PAST WEEK? NO . FEVER NO . FLU LIKE SYMPTOMS? NO . COUGH NO . INTEGUMENTARY: DO YOU HAVE ANY RASHES OR OPEN SORES? NO . ALLERGIC/IMMUNO: ARE YOU ALLERGIC TO IV DYE? NO . ANY NEW ALLERGIES? NO . PSYCHIATRIC: DO YOU HAVE THOUGHTS OF HURTING YOURSELF OR SOMEONE ELSE? NO . ARE YOU ABUSED, NEGLECTED, OR IN AN UNSAFE ENVIRONMENT? NO . ENDOCRINOLOGY: ARE YOU DIABETIC? NO . OTHER: DO YOU NEED ANY PRESCRIPTIONS? NO . IF YES, PLEASE LIST: ____ . ANY NEW PROBLEMS WITH YOUR MEDICATIONS? NO . WHEN DID YOU LAST EAT? ____ . WHEN DID YOU LAST DRINK? ____ . WHAT DID YOU LAST DRINK? ____ . NAME OF PERSON DRIVING YOU HOME? ____ . DO YOU HAVE ANY OTHER QUESTIONS OR CONCERNS NO . VITAL SIGNS WT 126.2 LBS, HT 66.5 IN, BMI 20.06 INDEX, BP 94/55 MM HG, HR 78 /MIN, RR 16 /MIN, TEMP 98.2 F, OXYGEN SAT % 99%, SAFE IN ENV? (Y/N) YES, NA INITIALS NC 10:37, REVIEWED BY: HEIDY05/05/19 1048 DISCUSSED BP 94/55. PATIENT STATES HER BP USUALLY RUNS LOW. STATES SHE IS FEELING OK, ASYMPTOMATIC. JS. EXAMINATION GENERAL EXAMINATION: DEPRESSED AFFECTALERT,NO DISTRESS . PSYCHAFFECT NORMAL . LUNGS:LUNG SOUNDS ARE CLEAR . HEART:HEART RATE REGULAR . MUSCULOSKELETAL:MILD WEAKNESS OVER RIGHT LEG.TREMOR WITH MST RIGHT LEG. NEUROLOGIC EXAM:NORMAL SENSATION LIGHT TOUCH BILAT LEGS. DIAGNOSTIC TESTS REVIEWEDMRI L/S SPINE-05/11/18. ASSESSMENTS DISC DISPLACEMENT, LUMBAR - M51.26 (PRIMARY) LUMBOSACRAL RADICULOPATHY - M54.17 TREATMENT DISC DISPLACEMENT, LUMBAR CONTINUE VOLTAREN GEL, 1 %, DIRECTED, TRANSDERMAL, APPLY SMALL AMOUNT TO AFFECTED AREA RIGHT ANKLE Q8H PRN PAIN NOTES: L5/S1 LESI. PREVENTIVE MEDICINE PAIN CLINIC TEACHING: PROCEDURE TEACHING REVIEWED INFORMATION ON LUMBAR EPIDURAL PROCEDURE WITH PATIENT. ALSO REVIEWED PRE-PROCEDURE INSTRUCTIONS. PATIENT VERBALIZED AN UNDERSTANDING. AGNIESZKA MATHEWS 05/05/2019 12:16:39 PM > . PROCEDURE CODES FA211 ESTABILISHED PATIENT [facility] CHARGE DISPOSITION & COMMUNICATION FOLLOW UP POST (REASON: L5/S1 LESI) ELECTRONICALLY SIGNED BY JULIAN MENDOZA ON 05/19/2019 AT 04:21 PM EDT DISCLAIMER : THIS IS A VISIT SUMMARY EXTRACTED FROM THE [employer] CHART. IT IS NOT A COPY OF THE [employer] PROGRESS NOTE. CESAR
== END ==
LOC: M PAIN 10:30
PROVIDERS: ATTEND Nurse Practitioner Family
DX: M51.26 Other intervertebral disc displacement, lumbar region (principal); M54.17 Radiculopathy, lumbosacral region; G35 Multiple sclerosis; R56.9 Unspecified convulsions; K51.90 Ulcerative colitis, unspecified, without complications; M81.0 Age-related osteoporosis without current pathological fracture; E04.1 Nontoxic single thyroid nodule; G56.03 Carpal tunnel syndrome, bilateral upper limbs; F17.210 Nicotine dependence, cigarettes, uncomplicated; Z79.899 Other long term (current) drug therapy; Z88.1 Allergy status to other antibiotic agents; Z88.8 Allergy status to other drugs, medicaments and biological substances

== ENCOUNTER → 2019-06-11 | Outpatient (CLI) | payer MEDICARE ==
[~2019-06-11] MED LIST changes: +ISOVUE-M 200 41% 20ML VIAL (Q9966) As Ordered ONE; -ISOVUE-M 300 61% 15ML VIAL (Q9967) As Ordered ONE
--- NOTE | 2019-06-11 13:51 | REP ---
Partial lumbar spine series: Two views . History: Injection procedure for pain. 11 seconds of fluoroscopy time is reported. Findings: A sequence of two fluoroscopically obtained last image hold procedural spot radiographs of the lumbar spine document needle position and contrast injection associated with injection procedure. Electronically Signed by Karri Renae MD 06/11/2019 01:43 P
--- NOTE | 2019-06-26 00:43 | ECWPNPC ---
PATIENT NAME: MARY NAIR : 1960 GENDER: FEMALE VISIT DATE: 06/11/2019 DISCHARGE DATE: 06/11/19 1225 VISIT LOCKED DATE TIME: PHYSICIAN: BEV BARBOZA MD PHYSICIAN PAGER NO: [phone] RESOURCE: BEV BARBOZA MD REASON FOR APPOINTMENT 1. L5/S1 LESI HISTORY OF PRESENT ILLNESS HISTORY OF PRESENT ILLNESS: PAIN THE PATIENT DESCRIBES THE PAIN... FALL RISK SCREENING: SCREENING :NO FALLS REPORTED IN THE LAST YEAR CURRENT MEDICATIONS TAKING ASACOL 800 MG TABLET DELAYED RELEASE 1 TABLET ORALLY TWICE A DAY, NOTES: 06/11/19599 TAKING BACLOFEN 20 MG TABLET 1 TABLET ORALLY DAILY, NOTES: 06/10/191899 TAKING DEPAKOTE ER 500 MG TABLET EXTENDED RELEASE 24 HOUR 1 TABLET ORALLY TWICE A DAY, NOTES: 06/10/19599 TAKING PROVIGIL 100 MG TABLET 1 TABLET ORALLY ONCE A DAY, NOTES: 06/11/19599 TAKING TECFIDERA 240 MG TABLET 1 TABLET ORALLY TWICE A DAY, NOTES: 06/11/19599 TAKING VITAMIN D-3 2000 UNITS CAPSULE 1 CAPSULE ORALLY ONCE A DAY, NOTES: 06/11/10599 TAKING VITAMIN E 1000 UNIT CAPSULE 1 CAPSULE ORALLY ONCE A DAY, NOTES: 06/11/19599 TAKING IBUPROFEN 600 MG TABLET 1 TABLET ORALLY TWICE DAILY, NOTES: 06/11/19599 TAKING MAXALT 10 MG TABLET 1 TABLET ORALLY DAILY NEEDED FOR MIGRAINES MAXIUM MIGRAINES A MONTH =2, NOTES: > 3 WEEKS TAKING PROLIA 60 MG/ML SOLUTION DIRECTED SUBCUTANEOUS Q SIX MONTHS, NOTES: JANUARY TAKING CALCIUM 600 + D 600-400 MG-UNIT TABLET 1 TABLET ORALLY DAILY, NOTES: 06/11/19599 TAKING VOLTAREN 1 % GEL DIRECTED TRANSDERMAL APPLY SMALL AMOUNT TO AFFECTED AREA RIGHT ANKLE Q8H PRN PAIN, NOTES: 06/10/19 TAKING NEURONTIN 300 MG CAPSULE 1 CAPSULE ORALLY BID, NOTES: 06/11/19599 NOT-TAKING PATANOL 0.1 % SOLUTION 1 DROP INTO BOTH EYES OPHTHALMIC TWICE A DAY NEEDED MEDICATION LIST REVIEWED AND RECONCILED WITH THE PATIENT PAST MEDICAL HISTORY MULTIPLE SCLEROSIS (DR. WHITING) SEIZURES ULCERATIVE COLITIS (DR. GRANDA) CARPAL TUNNEL OSTEOPOROSIS; STARTED PROLIA 12/29 SMOKER NON-TOXIC MULTINODULAR GOITER STABLE ON US 2013 (PREVIOUSLY FOLLOWED BY DR. GARCÍA) BL CARPEL TUNNEL - NO SURGERY ECHO 2004 MILD GLOBAL HYPOKINESIS LV EF 50% RT SCIATICA 2018 MINI BOWEL PERFORATION 2002 LOW BACK PAIN RIGHT LEG PAIN ALLERGIES MTX: HAIR LOSS - SIDE EFFECTS FLAGYL: RED RASH - ALLERGY SURGICAL HISTORY TONSILLECTOMY 9 YEARS OLD ADENOIDECTOMY 9 YEARS OLD COLONSCOPY//NAN 04/07/2010,03/2014 & 2016 COLPOSCOPY CONIZATION FAMILY HISTORY FATHER: 71 YRS, POLYMYALGIA, DIAGNOSED WITH HEART DISEASE MOTHER: ALIVE 79 YRS, HTN, HIGH CHOLESTEROL, CHOLECYSTECTOMY, HYPERTENSION SIBLINGS: ALIVE 57,48 YRS DAUGHTER(S): ALIVE 27,23 YRS MATERNAL GRAND FATHER: BLADDER CANCER AT AGE 80 MATERNAL GRAND MOTHER: , HEART DISEASE, CHF, BYPASS SURGERY MATERNAL UNCLE: , COMPLICATIONS OF IDDM, CHF 2 SISTER(S) - HEALTHY. 2DAUGHTER(S) - HEALTHY. DENIES BREAST, COLON OR OVARIAN CANCERS.\\\\N2\\\\\\\\\\\\\ FATHER FROM [place] D[place]. SOCIAL HISTORY GENERAL: TOBACCO USE ARE YOU A:CURRENT SMOKER ARE YOU INTERESTED IN QUITTING?NOT READY TO QUIT PT DOES NOT WANT SMOKING CESSATION HANDOUT COUNSELED THE PATIENT ON SMOKING EFFECTS, EDUCATION [id number]/24/2019 HOW MANY CIGARETTES A DAY DO YOU SMOKE?6-10 HOW SOON AFTER YOU WAKE UP DO YOU SMOKE YOUR FIRST CIGARETTE?AFTER 60 MIN HOW OFTEN DO YOU SMOKE CIGARETTES?EVERY DAY PATIENT COUNSELED ON THE DANGERS OF TOBACCO USE AND URGED TO QUIT:05/05/2019 HIV / HEP-C SCREENING HIV TEST OFFERED TO PATIENT:YES DATE OFFERED:02/14/2019 TEST ACCEPTED:NO REASON:PATIENT DECLINED BROCHURE PROVIDED TO PATIENTYES OTHERS AT HOME: SPOUSE, YOUNGEST DAUGHTER IN COLLEGE. DIET: NO HX EATING DISORDERS. LANGUAGE ANGUILLAN. DOMESTIC VIOLENCE DO YOU FEEL SAFE IN YOUR ENVIRONMENT?YES NEW PATIENT PAIN DIARY FROM 0-10, WHAT LEVEL IS YOUR PAIN TODAY?7 RECREATIONAL DRUG USE DRUG USE?NO EXERCISE: NO REGULAR EXERCISE. LEARNING BARRIERS / SPECIAL NEEDS CHANGE FROM LAST VISIT?NO BARRIERS TO LEARNING?NO HEARING IMPAIRED?NO VISION IMPAIRED?YES :CORRECTIVE LENSES COGNITIVELY IMPAIRED?NO READINESS TO LEARN?YES LEARNING PREFERENCES?NO LEARNING CAPABILITIES PRESENT?YES EMOTIONAL BARRIERS?NO SPECIAL DEVICES?NO INFORMATION RESOURCE CONSULTANT NEEDED?NO PAIN CLINIC PFS, CLERGY, PUBLIC HEALTH REFERRALS PFS REFERRAL NEEDED?NO CLERGY REFERRAL NEEDED?NO PUBLIC HEALTH REFERRAL NEEDED?NO WAS THE PROVIDER NOTIFIED OF ANY PERTINENT INFO? N/A HAS THE PATIENT BEEN EDUCATED REGARDING HIS/HER PLAN OF CARE?YES HAS THE PATIENT BEEN EDUCATED REGARDING PAIN, THE RISK FOR PAIN, THE IMPORTANCE OF EFFECTIVE PAIN MANAGEMENT, AND THE PAIN ASSESSMENT PROCESS?YES LATEX QUESTIONNAIRE LATEX ALLERGY : HAVE YOU EVER DEVELOPED ANY TYPE OF REACTION AFTER HANDLING LATEX PRODUCTS SUCH RUBBER GLOVES, CONDOMS, DIAPHRAGMS, BALLOONS, SOCKS, OR UNDERWEAR?NO LATEX ALLERGY : HAVE YOU EVER DEVELOPED ANY TYPE OF REACTION DURING OR AFTER DENTAL APPOINTMENT, VAGINAL/RECTAL EXAMINATION, SURGICAL PROCEDURE, OR ANY OTHER EXPOSURE?NO LATEX RISK : HAVE YOU EVER HAD ANY DIFFICULTY BREATHING OR HIVES AFTER EATING OR HANDLING ANY FRUITS, OR VEGETABLES; SUCH KIWI, BANANAS, STONE FRUITS, OR CHESTNUTSNO LATEX RISK : DO YOU HAVE A PREVIOUS PERSONAL HISTORY OF MORE THAN NINE SURGERIES, SPINA BIFIDA, OR REPEATED CATHERIZATIONS? NO LATEX RISK : ARE YOU FREQUENTLY EXPOSED TO LATEX PRODUCTS IN YOUR OCCUPATION?NO DATE ASKED : 02/06/2019 CAFFEINE NONE. ADVANCE DIRECTIVE ADVANCE DIRECTIVE DISCUSSED WITH PATIENT:YES HCP-1. -STACEY [phone]. 2. MARIA DEL ROSARIO CRUZ- DAUGHTER [phone] MORMON [id number] ANGLICAN MARITAL STATUS: X 32 YRS. 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 SEXUAL HX HAD SEX IN THE LAST 12 MONTHS (VAGINAL, ORAL, OR ANAL)?YES WITHMEN ONLY HAVE YOU EVER HAD AN STD?NO LMP:POST MENOPAUSE REVIEWED WITH PATIENT 08/13/18 1343 JSREVIEWED WITH PATIENT 09/12/18 1454 LAS10/10/18 1041 REVIEWED WITH PT. AD10/28/18 1345 REVIEWED WITH PT. ADREVIEWED WITH PT 11/14/2018 0945 LASREVIEWED WITH PT 06/11/19 1100 LAS REVIEWED WITH PATIENT 05/05/19 1046 JSREVIEWED WITH PT 01/17/19 1003 BV REVIEWED WITH PATIENT 03/06/19 1106 JS. HOSPITALIZATION/MAJOR DIAGNOSTIC PROCEDURE CHILDBIRTH X2 MS 1992 REVIEW OF SYSTEMS REVIEWED BY: PROVIDER: . CONSTITUTIONAL: ANY CHANGE IN YOUR MEDICAL CONDITION? NO . CHILLS NO . FEVER NO . INFECTION: DO YOU HAVE NEW INFECTIONS? NO . DO YOU HAVE HISTORY OF MRSA? NO . MUSCULOSKELETAL: ANY NEW PATTERNS OF PAIN OR NUMBNESS? NO . GASTROENTEROLOGY: ANY NEW CHANGE IN BOWEL CONTROL? NO . GENITOURINARY: ANY NEW CHANGE IN BLADDER CONTROL? NO . IS THERE A CHANCE YOU COULD BE ? NO . HEMATOLOGY/LYMPH: DO YOU TAKE ANY BLOOD THINNERS? (FOR EXAMPLE- COUMADIN, PLAVIX, AGGRENOX, PLATEL, PRADAXA, OR XARELTO) NO . WHEN WAS YOUR LAST DOSE? DATE: TIME: . NEUROLOGY: HAVE YOU FALLEN IN THE PAST 12 MONTHS? NO . ANY NEW EXTREMITY NUMBNESS OR WEAKNESS? NO . CARDIOLOGY: DO YOU HAVE A PACEMAKER OR DEFIBRILLATOR? NO . RESPIRATORY: HAVE YOU BEEN SICK IN THE PAST WEEK? NO . FEVER NO . FLU LIKE SYMPTOMS? NO . COUGH NO . INTEGUMENTARY: DO YOU HAVE ANY RASHES OR OPEN SORES? NO . ALLERGIC/IMMUNO: ARE YOU ALLERGIC TO IV DYE? NO . ANY NEW ALLERGIES? NO . PSYCHIATRIC: DO YOU HAVE THOUGHTS OF HURTING YOURSELF OR SOMEONE ELSE? NO . ARE YOU ABUSED, NEGLECTED, OR IN AN UNSAFE ENVIRONMENT? NO . ENDOCRINOLOGY: ARE YOU DIABETIC? NO . OTHER: DO YOU NEED ANY PRESCRIPTIONS? NO . IF YES, PLEASE LIST: ____ . ANY NEW PROBLEMS WITH YOUR MEDICATIONS? NO . WHEN DID YOU LAST EAT? ____06/11/19 0530 . WHEN DID YOU LAST DRINK? ____06/11/19 0830 . WHAT DID YOU LAST DRINK? ____WATER . NAME OF PERSON DRIVING YOU HOME? ____DAVID . DO YOU HAVE ANY OTHER QUESTIONS OR CONCERNS NO . VITAL SIGNS WT 124.2 LBS, HT 66.5 IN, BMI 19.74 INDEX, BP 104/59 MM HG, HR 80 /MIN, RR 16 /MIN, TEMP 97.0 F, OXYGEN SAT % 99%, SAFE IN ENV? (Y/N) YES, NA INITIALS AW 1017, REVIEWED BY: TONY. ASSESSMENTS INTERVERTEBRAL DISC DISORDER WITH RADICULOPATHY OF LUMBOSACRAL REGION - M51.17 (PRIMARY) PROCEDURES PRE PROCEDURE DIAGNOSIS LUMBOSACRAL DISC DISORDER WITH RADICULOPATHY POST PROCEDURE DIAGNOSIS LUMBOSACRAL DISC DISORDER WITH RADICULOPATHY PROCEDURE LUMBAR EPIDURAL STEROID INJECTION UNDER FLUOROSCOPIC GUIDANCE SURGEON DR. BEV BARBOZA CERTIFIED ORTHOPTIST NONE ANESTHESIA LOCAL PRE PROCEDURE NOTE THE PATIENT HAS A HISTORY OF CHRONIC LOW BACK PAIN. I EVALUATE THE PATIENT AND REVIEWED THE CHART. I WENT OVER THE RISKS, ALTERNATIVES, AND BENEFITS ASSOCIATED WITH THIS PROCEDURE. THE PATIENT WOULD LIKE TO PROCEED AND GIVE CONSENT TO PERFORMED THE PROCEDURE. THE PATIENT DENIES UNEXPLAINABLE WEIGHT LOSS, FEVER, CHILLS, OR NEW CHANGES IN URINARY OR BOWEL CONTROL. DESCRIPTION OF PROCEDURE THE PATIENT WAS BROUGHT TO THE PROCEDURE ROOM AND PLACED IN THE PRONE POSITION. THE LUMBOSACRAL AREA WAS CLEANED WITH BETADINE SOLUTION AND DRAPED ASEPTICALLY. THE PROCEDURE WAS DONE UNDER STERILE CONDITIONS. I CHECKED LATERALITY AND THE LEVEL WHERE THE PROCEDURE WAS GOING TO BE PERFORMED WITH THE PATIENT AND THE SUPPORTING STAFF AT THE MOMENT OF THE TIME OUT IN THE PROCEDURE ROOM. UNDER FLUOROSCOPIC GUIDANCE, THE TARGET POINT WAS SELECTED AT THE INTERLAMINAR LEVEL OF L5-S1. LIDOCAINE WAS USED TO NUMB THE SKIN AND THE SUBCUTANEOUS TISSUE BELOW IT. EPIDURAL TUOHY NEEDLE, 17-GAUGE, WAS ADVANCED UNDER FLUOROSCOPIC GUIDANCE AND FOLLOWING PATIENT FEEDBACK UNTIL THE EPIDURAL SPACE WAS REACHED, 7 CM DEEP INTO THE SKIN BY THE LOSS OF RESISTANCE TECHNIQUE. ISOVUE M-200 DYE WAS INJECTED SHOWING ADEQUATE SPREAD OF THE DYE. THEN, A SOLUTION OF 3 ML OF NORMAL SALINE WITH DEPO-MEDROL 60 MG WAS INJECTED SLOWLY FOLLOWING PATIENT FEEDBACK. THERE WAS NO EVIDENCE OF BLOOD, PARESTHESIA OR CEREBROSPINAL FLUID DURING THE PROCEDURE. THE PATIENT WAS SENT TO THE RECOVERY ROOM. THE PATIENT WAS MOVING THE EXTREMITIES AND DOING WELL. THERE WAS NO COMPLICATION DURING THE PROCEDURE. FLUOROSCOPY TIME WAS 11 SECONDS. POST PROCEDURE NOTE THE PATIENT WILL BE SEEN IN A FOLLOW UP IN THE NEXT FEW WEEKS. INSTRUCTIONS WERE GIVEN, QUESTIONS WERE ANSWERED, AND THE PATIENT EXPRESSED UNDERSTANDING AND AGREES WITH THE PLAN. I, ELIZABETH SCHNEIDER, DOCUMENTED THE ABOVE INFORMATION ACTING A SCRIBE FOR DR. BARBOZA. I HAVE REVIEWED THE ABOVE DOCUMENT, WRITTEN BY ELIZABETH SCHNEIDER SCRIBNereida AND I VERIFY THAT IT IS ACCURATE. DIAGNOSTIC IMAGING [facility] FLUORO GUIDE SPINE INJECTION (PAIN)[id number] PROCEDURE CODES 6045F RADXPS IN END [id number] PXD [id number] LUMBAR/SACRAL W/ IMAGING DISPOSITION & COMMUNICATION FOLLOW UP 2 WEEKS ELECTRONICALLY SIGNED BY BEV BARBOZA MD, MD ON 06/25/2019 AT 11:54 AM EDT DISCLAIMER : THIS IS A VISIT SUMMARY EXTRACTED FROM THE [employer] CHART. IT IS NOT A COPY OF THE [employer] PROGRESS NOTE. CESAR
== END ==
LOC: M PAIN 10:15
PROVIDERS: ATTEND Anesthesiology
DX: M51.17 Intervertebral disc disorders with radiculopathy, lumbosacral region (principal); G35 Multiple sclerosis; F17.210 Nicotine dependence, cigarettes, uncomplicated; Z79.891 Long term (current) use of opiate analgesic; Z79.899 Other long term (current) drug therapy; Z88.8 Allergy status to other drugs, medicaments and biological substances
CPT/HCPCS: 62323; J1030; Q9966

== ENCOUNTER → 2019-06-14 | Outpatient (CLI) | payer MEDICARE ==
--- NOTE | 2019-06-16 09:50 | REP ---
MR BRAIN WITHOUT CONTRAST: HISTORY: Multiple Sclerosis The previous examination date 06/25/2017 is not available for review. Multiple areas of increased signal intensity on T2-weighted images are present in the periventricular and subcortical white matter, thalami and left basal ganglia. Additional areas of increased signal intensity are present in the corpus callosum. There is no intraparenchymal hemorrhage, infarct, mass or midline shift. The ventricular system and cortical sulci are dilated consistent with minimal volume loss. There is no extracerebral collections. The sinuses are clear. IMPRESSION: The above findings are consistent with multiple sclerosis. Electronically Signed by Az Myers MD 06/16/2019 11:18 A
== END ==
LOC: M RAD 11:32
PROVIDERS: ATTEND Psychiatry & Neurology Neurology
DX: G35 Multiple sclerosis (principal)

== ENCOUNTER → 2019-06-15 | Outpatient (CLI) | payer MEDICARE ==
[2019-06-15 09:00] LABS: BASO # 0.1 10^3/uL (0.0-0.2); BASO % 1.1 % (0.0-1.0); EOS # 0.1 10^3/uL (0.0-0.50); EOS % 1.1 % (0.0-3.0); HEMATOCRIT 40.2 % (36.0-47.0); HEMOGLOBIN 13.4 g/dl (12.0-15.5); LYMPH # 1.3 10^3/uL (1.5-4.5); LYMPH % 23.5 % (24.0-44.0); MEAN CORPUSCULAR HEMOGLOBIN 31.2 pg (27.0-33.0); MEAN CORPUSCULAR HGB CONC 33.3 g/dl (32.0-36.5); MEAN CORPUSCULAR VOLUME 93.7 fl (80.0-96.0); MONO # 0.9 10^3/uL (0.0-0.8); MONO % 16.4 % (0.0-5.0); NEUTROPHILS # 3.2 10^3/uL (1.8-7.7); NEUTROPHILS % 57.4 % (36.0-66.0); PLATELET COUNT, AUTOMATED 207 10^3/uL (150-450); RED BLOOD COUNT 4.29 10^6/uL (4.00-5.40); WHITE BLOOD COUNT 5.6 10^3/uL (4.0-10.0)
[2019-06-15 09:36] LABS: ALBUMIN 3.9 GM/DL (3.2-5.2); ALT/SGPT 16 U/L (12-78); BILIRUBIN,TOTAL 0.4 MG/DL (0.2-1.0); BLOOD UREA NITROGEN 25 MG/DL (7-18); CALCIUM LEVEL 9.8 MG/DL (8.5-10.1); CARBON DIOXIDE LEVEL 31 MEQ/L (21-32); CHLORIDE LEVEL 106 MEQ/L (98-107); CREATININE FOR GFR 0.57 MG/DL (0.55-1.30); GLOMERULAR FILTRATION RATE > 60.0 (>51); GLUCOSE, FASTING 84 MG/DL (70-100); POTASSIUM SERUM 4.4 MEQ/L (3.5-5.1); SODIUM LEVEL 141 MEQ/L (136-145); TOTAL PROTEIN 7.2 GM/DL (6.4-8.2)
[2019-06-16 12:02] LABS: TOTAL 25(OH) VITAMIN D 56.9 NG/ML (30.0-100.0)
== END ==
LOC: M LAB 08:16
PROVIDERS: ATTEND Psychiatry & Neurology Neurology
DX: G35 Multiple sclerosis (principal)

== ENCOUNTER → 2019-06-21 | Outpatient (REF) | payer MEDICARE | LOC: M LAB REF 09:44 | PROVIDERS: ATTEND Physician Assistant | DX: L02.31 Cutaneous abscess of buttock (principal) ==

== ENCOUNTER → 2019-07-22 | Outpatient (CLI) | payer MEDICARE ==
--- NOTE | 2019-08-05 02:07 | ECWPNPC ---
PATIENT NAME: MARY ANIR : 1960 GENDER: FEMALE VISIT DATE: 07/22/2019 DISCHARGE DATE: 07/22/19 1119 VISIT LOCKED DATE TIME: PHYSICIAN: CARTER ASTUDILLO PHYSICIAN PAGER NO: [phone] RESOURCE: CARTER ASTUDILLO REASON FOR APPOINTMENT 1. POST PROC HISTORY OF PRESENT ILLNESS HISTORY OF PRESENT ILLNESS: HERE FOR POST PROCEDURE F/U.HAD LESI [id number].REPORTING >50% IMPROVEMENT OVERALL WITH BACK PAIN AND RIGHT LEG PAIN.CONTINUES TO HAVE RESIDUAL RIGHT ANTERIOR LATERAL TIBIA/FIBULA PAIN.RATING PAIN VAS 3/10. PAIN THE PATIENT DESCRIBES THE PAIN... THE PATIENT DESCRIBES THE PAIN... THE PATIENT DESCRIBES THE PAIN... FALL RISK SCREENING: SCREENING :NO FALLS REPORTED IN THE LAST YEAR CURRENT MEDICATIONS TAKING ASACOL 800 MG TABLET DELAYED RELEASE 1 TABLET ORALLY TWICE A DAY TAKING BACLOFEN 20 MG TABLET 1 TABLET ORALLY DAILY TAKING DEPAKOTE ER 500 MG TABLET EXTENDED RELEASE 24 HOUR 1 TABLET ORALLY TWICE A DAY TAKING PROVIGIL 100 MG TABLET 1 TABLET ORALLY ONCE A DAY TAKING TECFIDERA 240 MG TABLET 1 TABLET ORALLY TWICE A DAY TAKING VITAMIN D-3 2000 UNITS CAPSULE 1 CAPSULE ORALLY ONCE A DAY TAKING VITAMIN E 1000 UNIT CAPSULE 1 CAPSULE ORALLY ONCE A DAY TAKING IBUPROFEN 600 MG TABLET 1 TABLET ORALLY TWICE DAILY TAKING MAXALT 10 MG TABLET 1 TABLET ORALLY DAILY NEEDED FOR MIGRAINES MAXIUM MIGRAINES A MONTH =2 TAKING PROLIA 60 MG/ML SOLUTION DIRECTED SUBCUTANEOUS Q SIX MONTHS TAKING CALCIUM 600 + D 600-400 MG-UNIT TABLET 1 TABLET ORALLY DAILY TAKING VOLTAREN 1 % GEL DIRECTED TRANSDERMAL APPLY SMALL AMOUNT TO AFFECTED AREA RIGHT ANKLE Q8H PRN PAIN TAKING NEURONTIN 300 MG CAPSULE 1 CAPSULE ORALLY BID NOT-TAKING PATANOL 0.1 % SOLUTION 1 DROP INTO BOTH EYES OPHTHALMIC TWICE A DAY NEEDED MEDICATION LIST REVIEWED AND RECONCILED WITH THE PATIENT PAST MEDICAL HISTORY MULTIPLE SCLEROSIS (DR. WHITING) SEIZURES ULCERATIVE COLITIS (DR. GRANDA) CARPAL TUNNEL OSTEOPOROSIS; STARTED PROLIA 12/29 SMOKER NON-TOXIC MULTINODULAR GOITER STABLE ON US 2013 (PREVIOUSLY FOLLOWED BY DR. GARCÍA) BL CARPEL TUNNEL - NO SURGERY ECHO 2004 MILD GLOBAL HYPOKINESIS LV EF 50% RT SCIATICA 2017 MINI BOWEL PERFORATION 2002 LOW BACK PAIN RIGHT LEG PAIN ALLERGIES FLAGYL: RED RASH - ALLERGY SURGICAL HISTORY TONSILLECTOMY 9 YEARS OLD ADENOIDECTOMY 9 YEARS OLD COLONSCOPY//NAN 04/07/2010,03/2014 & 2015 COLPOSCOPY CONIZATION FAMILY HISTORY FATHER: 71 YRS, POLYMYALGIA, DIAGNOSED WITH UNSPECIFIED HEART DISEASE MOTHER: ALIVE 79 YRS, HTN, HIGH CHOLESTEROL, CHOLECYSTECTOMY, HYPERTENSION SIBLINGS: ALIVE 57,48 YRS DAUGHTER(S): ALIVE 27,23 YRS MATERNAL GRAND FATHER: BLADDER CANCER AT AGE 80 MATERNAL GRAND MOTHER: , HEART DISEASE, CHF, BYPASS SURGERY MATERNAL UNCLE: , COMPLICATIONS OF IDDM, CHF 2 SISTER(S) - HEALTHY. 2DAUGHTER(S) - HEALTHY. DENIES BREAST, COLON OR OVARIAN CANCERS.\\\\N2\\\\\\\\\\\\\ FATHER FROM [place] DIEASE. SOCIAL HISTORY GENERAL: TOBACCO USE ARE YOU A:CURRENT SMOKER ARE YOU INTERESTED IN QUITTING?NOT READY TO QUIT PT DOES NOT WANT SMOKING CESSATION HANDOUT COUNSELED THE PATIENT ON SMOKING EFFECTS, EDUCATION [id number]/24/2019 HOW MANY CIGARETTES A DAY DO YOU SMOKE?6-10 HOW SOON AFTER YOU WAKE UP DO YOU SMOKE YOUR FIRST CIGARETTE?AFTER 60 MIN HOW OFTEN DO YOU SMOKE CIGARETTES?EVERY DAY PATIENT COUNSELED ON THE DANGERS OF TOBACCO USE AND URGED TO QUIT:07/22/2019 HIV / HEP-C SCREENING HIV TEST OFFERED TO PATIENT:YES DATE OFFERED:02/14/2019 TEST ACCEPTED:NO REASON:PATIENT DECLINED BROCHURE PROVIDED TO PATIENTYES OTHERS AT HOME: SPOUSE, YOUNGEST DAUGHTER IN COLLEGE. DIET: NO HX EATING DISORDERS. LANGUAGE TURKISH. DOMESTIC VIOLENCE DO YOU FEEL SAFE IN YOUR ENVIRONMENT?YES NEW PATIENT PAIN DIARY FROM 0-10, WHAT LEVEL IS YOUR PAIN TODAY?7 RECREATIONAL DRUG USE DRUG USE?NO EXERCISE: NO REGULAR EXERCISE. LEARNING BARRIERS / SPECIAL NEEDS CHANGE FROM LAST VISIT?NO BARRIERS TO LEARNING?NO HEARING IMPAIRED?NO VISION IMPAIRED?YES COGNITIVELY IMPAIRED?NO :CORRECTIVE LENSES READINESS TO LEARN?YES LEARNING PREFERENCES?NO LEARNING CAPABILITIES PRESENT?YES EMOTIONAL BARRIERS?NO SPECIAL DEVICES?NO PAPER HANDLER NEEDED?NO PAIN CLINIC PFS, CLERGY, PUBLIC HEALTH REFERRALS PFS REFERRAL NEEDED?NO CLERGY REFERRAL NEEDED?NO PUBLIC HEALTH REFERRAL NEEDED?NO WAS THE PROVIDER NOTIFIED OF ANY PERTINENT INFO?YES N/A HAS THE PATIENT BEEN EDUCATED REGARDING HIS/HER PLAN OF CARE?YES HAS THE PATIENT BEEN EDUCATED REGARDING PAIN, THE RISK FOR PAIN, THE IMPORTANCE OF EFFECTIVE PAIN MANAGEMENT, AND THE PAIN ASSESSMENT PROCESS?YES LATEX QUESTIONNAIRE LATEX ALLERGY : HAVE YOU EVER DEVELOPED ANY TYPE OF REACTION AFTER HANDLING LATEX PRODUCTS SUCH RUBBER GLOVES, CONDOMS, DIAPHRAGMS, BALLOONS, SOCKS, OR UNDERWEAR?NO LATEX ALLERGY : HAVE YOU EVER DEVELOPED ANY TYPE OF REACTION DURING OR AFTER DENTAL APPOINTMENT, VAGINAL/RECTAL EXAMINATION, SURGICAL PROCEDURE, OR ANY OTHER EXPOSURE?NO LATEX RISK : HAVE YOU EVER HAD ANY DIFFICULTY BREATHING OR HIVES AFTER EATING OR HANDLING ANY FRUITS, OR VEGETABLES; SUCH KIWI, BANANAS, STONE FRUITS, OR CHESTNUTSNO LATEX RISK : DO YOU HAVE A PREVIOUS PERSONAL HISTORY OF MORE THAN NINE SURGERIES, SPINA BIFIDA, OR REPEATED CATHERIZATIONS? NO LATEX RISK : ARE YOU FREQUENTLY EXPOSED TO LATEX PRODUCTS IN YOUR OCCUPATION?NO DATE ASKED : 07/22/2019 CAFFEINE NONE. ADVANCE DIRECTIVE ADVANCE DIRECTIVE DISCUSSED WITH PATIENT:YES HCP-1. -STACEY [phone]. 2. MARIA DEL ROSARIO CRUZ- DAUGHTER [phone] WORSHIP [id number] GNOSTICIST MARITAL STATUS: X 32 YRS. 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 SEXUAL HX HAD SEX IN THE LAST 12 MONTHS (VAGINAL, ORAL, OR ANAL)?YES WITHMEN ONLY LMP:POST MENOPAUSE HAVE YOU EVER HAD AN STD?NO REVIEWED WITH PATIENT 08/13/18 1343 JSREVIEWED WITH PATIENT 09/12/18 1454 LAS10/10/18 1041 REVIEWED WITH PT. AD10/28/18 1345 REVIEWED WITH PT. ADREVIEWED WITH PT 11/14/2018 0945 LASREVIEWED WITH PT 06/11/19 1100 LAS REVIEWED WITH PATIENT 05/05/19 1046 JSREVIEWED WITH PT 01/17/19 1003 BV REVIEWED WITH PATIENT 03/06/19 1106 JS. HOSPITALIZATION/MAJOR DIAGNOSTIC PROCEDURE CHILDBIRTH X2 MS 1992 REVIEW OF SYSTEMS REVIEWED BY: PROVIDER: CARTER JORDAN . CONSTITUTIONAL: ANY CHANGE IN YOUR MEDICAL CONDITION? NO . CHILLS NO . FEVER NO . INFECTION: DO YOU HAVE NEW INFECTIONS? NO . DO YOU HAVE HISTORY OF MRSA? NO . MUSCULOSKELETAL: ANY NEW PATTERNS OF PAIN OR NUMBNESS? NO . GASTROENTEROLOGY: ANY NEW CHANGE IN BOWEL CONTROL? NO . GENITOURINARY: ANY NEW CHANGE IN BLADDER CONTROL? NO . IS THERE A CHANCE YOU COULD BE ? NO . HEMATOLOGY/LYMPH: DO YOU TAKE ANY BLOOD THINNERS? (FOR EXAMPLE- COUMADIN, PLAVIX, AGGRENOX, PLATEL, PRADAXA, OR XARELTO) NO . WHEN WAS YOUR LAST DOSE? DATE: TIME: . NEUROLOGY: HAVE YOU FALLEN IN THE PAST 12 MONTHS? NO . ANY NEW EXTREMITY NUMBNESS OR WEAKNESS? NO . CARDIOLOGY: DO YOU HAVE A PACEMAKER OR DEFIBRILLATOR? NO . RESPIRATORY: HAVE YOU BEEN SICK IN THE PAST WEEK? NO . FEVER NO . FLU LIKE SYMPTOMS? NO . COUGH NO . INTEGUMENTARY: DO YOU HAVE ANY RASHES OR OPEN SORES? NO . ALLERGIC/IMMUNO: ARE YOU ALLERGIC TO IV DYE? NO . ANY NEW ALLERGIES? NO . PSYCHIATRIC: DO YOU HAVE THOUGHTS OF HURTING YOURSELF OR SOMEONE ELSE? NO . ARE YOU ABUSED, NEGLECTED, OR IN AN UNSAFE ENVIRONMENT? NO . ENDOCRINOLOGY: ARE YOU DIABETIC? NO . OTHER: DO YOU NEED ANY PRESCRIPTIONS? NO . IF YES, PLEASE LIST: ____ . ANY NEW PROBLEMS WITH YOUR MEDICATIONS? NO . WHEN DID YOU LAST EAT? ____ . WHEN DID YOU LAST DRINK? ____ . WHAT DID YOU LAST DRINK? ____ . NAME OF PERSON DRIVING YOU HOME? ____ . DO YOU HAVE ANY OTHER QUESTIONS OR CONCERNS NO . VITAL SIGNS WT 122.2 LBS, HT 66.5 IN, BMI 19.43 INDEX, BP 134/53 MM HG, HR 56 /MIN, RR 16 /MIN, TEMP 96.9 F, OXYGEN SAT % 100%, SAFE IN ENV? (Y/N) Y, NA INITIALS SC 10:50, REVIEWED BY: KIET. EXAMINATION GENERAL EXAMINATION: GENERALALERT,NO DISTRESS . PSYCHAFFECT NORMAL . LUNGS:LUNG SOUNDS ARE CLEAR . HEART:HEART RATE REGULAR . MUSCULOSKELETAL:MILD WEAKNESS OVER RIGHT LEG.TREMOR WITH MST RIGHT LEG. NEUROLOGIC EXAM:NORMAL SENSATION LIGHT TOUCH BILAT LEGS. DIAGNOSTIC TESTS REVIEWEDMRI L/S SPINE-05/11/18. ASSESSMENTS INTERVERTEBRAL DISC DISORDER WITH RADICULOPATHY OF LUMBOSACRAL REGION - M51.17 (PRIMARY) TREATMENT INTERVERTEBRAL DISC DISORDER WITH RADICULOPATHY OF LUMBOSACRAL REGION NOTES: CONTINUE HOME EXCERSISE AND STRETCHING. PROCEDURE CODES FA211 ESTABILISHED PATIENT [facility] CHARGE DISPOSITION & COMMUNICATION FOLLOW UP 2 MONTHS ELECTRONICALLY SIGNED BY JULIAN MENDOZA ON 08/04/2019 AT 04:01 PM EDT DISCLAIMER : THIS IS A VISIT SUMMARY EXTRACTED FROM THE [employer] CHART. IT IS NOT A COPY OF THE [employer] PROGRESS NOTE. CESAR
== END ==
LOC: M PAIN 10:30
PROVIDERS: ATTEND Nurse Practitioner Family
DX: M51.17 Intervertebral disc disorders with radiculopathy, lumbosacral region (principal); M81.0 Age-related osteoporosis without current pathological fracture; G35 Multiple sclerosis; G40.909 Epilepsy, unspecified, not intractable, without status epilepticus; F17.210 Nicotine dependence, cigarettes, uncomplicated; Z88.1 Allergy status to other antibiotic agents; Z79.899 Other long term (current) drug therapy

== ENCOUNTER → 2019-07-25 | Outpatient (REF) | payer MEDICARE | LOC: M SFHCPLAZ 15:36 | PROVIDERS: ATTEND Family Medicine | DX: L85.9 Epidermal thickening, unspecified (principal) ==

== ENCOUNTER → 2019-08-29 | Outpatient (CLI) | payer MEDICARE ==
--- NOTE | 2019-08-29 10:02 | REP ---
Three-view sacrum, coccyx: 08/30/2019. Indication: Sacral pain. Comparison: None. Findings: There is no fracture, subluxation or dislocation. No osseous destructive lesions are present. Impression: Unremarkable sacrum and coccyx. Electronically Signed by Sha Thacker DO 08/29/2019 09:54 A
== END ==
LOC: M RAD 08:59
PROVIDERS: ATTEND Surgery
DX: D16.8 Benign neoplasm of pelvic bones, sacrum and coccyx (principal)

== ENCOUNTER → 2019-09-22 | Outpatient (CLI) | payer MEDICARE ==
--- NOTE | 2019-10-08 04:27 | ECWPNPC ---
PATIENT NAME: MARY NAIR : 1960 GENDER: FEMALE VISIT DATE: 09/22/2019 DISCHARGE DATE: 09/22/19 1129 VISIT LOCKED DATE TIME: PHYSICIAN: CARTER ASTUDILLO PHYSICIAN PAGER NO: [phone] RESOURCE: CARTER ASTUDILLO REASON FOR APPOINTMENT 1. MEDICARE BLUE-CHRONIC PAIN HISTORY OF PRESENT ILLNESS HISTORY OF PRESENT ILLNESS: HERE FOR F/U OF CHRONIC LOW BACK PAIN AND RIGHT LATERAL TIB/FIB PAIN.OVERALL DOING OK.USING VOLTAREN JEL PRN RATING PAIN VAS 3/10. PAIN THE PATIENT DESCRIBES THE PAIN... FALL RISK SCREENING: SCREENING :NO FALLS REPORTED IN THE LAST YEAR CURRENT MEDICATIONS TAKING ASACOL 800 MG TABLET DELAYED RELEASE 1 TABLET ORALLY TWICE A DAY TAKING BACLOFEN 20 MG TABLET 1 TABLET ORALLY DAILY TAKING DEPAKOTE ER 500 MG TABLET EXTENDED RELEASE 24 HOUR 1 TABLET ORALLY TWICE A DAY TAKING PROVIGIL 100 MG TABLET 1 TABLET ORALLY ONCE A DAY TAKING TECFIDERA 240 MG TABLET 1 TABLET ORALLY TWICE A DAY TAKING VITAMIN D-3 2000 UNITS CAPSULE 1 CAPSULE ORALLY ONCE A DAY TAKING VITAMIN E 1000 UNIT CAPSULE 1 CAPSULE ORALLY ONCE A DAY TAKING IBUPROFEN 600 MG TABLET 1 TABLET ORALLY TWICE DAILY TAKING MAXALT 10 MG TABLET 1 TABLET ORALLY DAILY NEEDED FOR MIGRAINES MAXIUM MIGRAINES A MONTH =2 TAKING PROLIA 60 MG/ML SOLUTION DIRECTED SUBCUTANEOUS Q SIX MONTHS TAKING CALCIUM 600 + D 600-400 MG-UNIT TABLET 1 TABLET ORALLY DAILY TAKING VOLTAREN 1 % GEL DIRECTED TRANSDERMAL APPLY SMALL AMOUNT TO AFFECTED AREA RIGHT ANKLE Q8H PRN PAIN TAKING NEURONTIN 300 MG CAPSULE 1 CAPSULE ORALLY BID NOT-TAKING PATANOL 0.1 % SOLUTION 1 DROP INTO BOTH EYES OPHTHALMIC TWICE A DAY NEEDED MEDICATION LIST REVIEWED AND RECONCILED WITH THE PATIENT PAST MEDICAL HISTORY MULTIPLE SCLEROSIS (DR. WHITING) SEIZURES ULCERATIVE COLITIS (DR. GRANDA) CARPAL TUNNEL OSTEOPOROSIS; STARTED PROLIA 12/29 SMOKER NON-TOXIC MULTINODULAR GOITER STABLE ON US 2013 (PREVIOUSLY FOLLOWED BY DR. GARCÍA) BL CARPEL TUNNEL - NO SURGERY ECHO 2004 MILD GLOBAL HYPOKINESIS LV EF 50% RT SCIATICA 2018 MINI BOWEL PERFORATION 2002 LOW BACK PAIN RIGHT LEG PAIN ALLERGIES FLAGYL: RED RASH - ALLERGY SURGICAL HISTORY TONSILLECTOMY 9 YEARS OLD ADENOIDECTOMY 9 YEARS OLD COLONSCOPY//NAN 04/07/2010,03/2014 & 2016 COLPOSCOPY CONIZATION FAMILY HISTORY FATHER: 71 YRS, POLYMYALGIA, DIAGNOSED WITH UNSPECIFIED HEART DISEASE MOTHER: ALIVE 79 YRS, HTN, HIGH CHOLESTEROL, CHOLECYSTECTOMY, HYPERTENSION SIBLINGS: ALIVE 57,48 YRS DAUGHTER(S): ALIVE 27,23 YRS MATERNAL GRAND FATHER: BLADDER CANCER AT AGE 80 MATERNAL GRAND MOTHER: , HEART DISEASE, CHF, BYPASS SURGERY MATERNAL UNCLE: , COMPLICATIONS OF IDDM, CHF 2 SISTER(S) - HEALTHY. 2DAUGHTER(S) - HEALTHY. DENIES BREAST, COLON OR OVARIAN CANCERS.\\\\N2\\\\\\\/17\\\\\\\ FATHER FROM [place] DIE[place]. SOCIAL HISTORY GENERAL: TOBACCO USE ARE YOU A:CURRENT SMOKER ARE YOU INTERESTED IN QUITTING?NOT READY TO QUIT PT DOES NOT WANT SMOKING CESSATION HANDOUT COUNSELED THE PATIENT ON SMOKING EFFECTS, EDUCATION [id number]/11/2019 HOW MANY CIGARETTES A DAY DO YOU SMOKE?6-10 HOW SOON AFTER YOU WAKE UP DO YOU SMOKE YOUR FIRST CIGARETTE?AFTER 60 MIN HOW OFTEN DO YOU SMOKE CIGARETTES?EVERY DAY PATIENT COUNSELED ON THE DANGERS OF TOBACCO USE AND URGED TO QUIT:09/22/2019 HIV / HEP-C SCREENING HIV TEST OFFERED TO PATIENT:YES DATE OFFERED:02/14/2019 TEST ACCEPTED:NO REASON:PATIENT DECLINED BROCHURE PROVIDED TO PATIENTYES OTHERS AT HOME: SPOUSE, YOUNGEST DAUGHTER IN COLLEGE. DIET: NO HX EATING DISORDERS. LANGUAGE PAPUA NEW GUINE[place]. DOMESTIC VIOLENCE DO YOU FEEL SAFE IN YOUR ENVIRONMENT?YES NEW PATIENT PAIN DIARY FROM 0-10, WHAT LEVEL IS YOUR PAIN TODAY?7 RECREATIONAL DRUG USE DRUG USE?NO EXERCISE: NO REGULAR EXERCISE. LEARNING BARRIERS / SPECIAL NEEDS CHANGE FROM LAST VISIT?NO BARRIERS TO LEARNING?NO HEARING IMPAIRED?NO VISION IMPAIRED?YES COGNITIVELY IMPAIRED?NO :CORRECTIVE LENSES READINESS TO LEARN?YES LEARNING PREFERENCES?NO LEARNING CAPABILITIES PRESENT?YES EMOTIONAL BARRIERS?NO SPECIAL DEVICES?NO HOTEL OR MOTEL ROOM SERVICE SUPERVISOR NEEDED?NO PAIN CLINIC PFS, CLERGY, PUBLIC HEALTH REFERRALS PFS REFERRAL NEEDED?NO CLERGY REFERRAL NEEDED?NO PUBLIC HEALTH REFERRAL NEEDED?NO WAS THE PROVIDER NOTIFIED OF ANY PERTINENT INFO?YES N/A HAS THE PATIENT BEEN EDUCATED REGARDING HIS/HER PLAN OF CARE?YES HAS THE PATIENT BEEN EDUCATED REGARDING PAIN, THE RISK FOR PAIN, THE IMPORTANCE OF EFFECTIVE PAIN MANAGEMENT, AND THE PAIN ASSESSMENT PROCESS?YES LATEX QUESTIONNAIRE LATEX ALLERGY : HAVE YOU EVER DEVELOPED ANY TYPE OF REACTION AFTER HANDLING LATEX PRODUCTS SUCH RUBBER GLOVES, CONDOMS, DIAPHRAGMS, BALLOONS, SOCKS, OR UNDERWEAR?NO LATEX ALLERGY : HAVE YOU EVER DEVELOPED ANY TYPE OF REACTION DURING OR AFTER DENTAL APPOINTMENT, VAGINAL/RECTAL EXAMINATION, SURGICAL PROCEDURE, OR ANY OTHER EXPOSURE?NO LATEX RISK : HAVE YOU EVER HAD ANY DIFFICULTY BREATHING OR HIVES AFTER EATING OR HANDLING ANY FRUITS, OR VEGETABLES; SUCH KIWI, BANANAS, STONE FRUITS, OR CHESTNUTSNO LATEX RISK : DO YOU HAVE A PREVIOUS PERSONAL HISTORY OF MORE THAN NINE SURGERIES, SPINA BIFIDA, OR REPEATED CATHERIZATIONS? NO LATEX RISK : ARE YOU FREQUENTLY EXPOSED TO LATEX PRODUCTS IN YOUR OCCUPATION?NO DATE ASKED : 07/22/2019 CAFFEINE NONE. ADVANCE DIRECTIVE ADVANCE DIRECTIVE DISCUSSED WITH PATIENT:YES HCP-1. -STACEY [phone]. 2. MARIA DEL ROSARIO CRUZ- DAUGHTER [phone] EPISCOPAL [id number] PENTECOSTAL MARITAL STATUS: X 32 YRS. 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 SEXUAL HX HAD SEX IN THE LAST 12 MONTHS (VAGINAL, ORAL, OR ANAL)?YES WITHMEN ONLY LMP:POST MENOPAUSE HAVE YOU EVER HAD AN STD?NO REVIEWED WITH PATIENT 08/13/18 1343 JSREVIEWED WITH PATIENT 09/12/18 1454 LAS10/10/18 1041 REVIEWED WITH PT. AD10/28/18 1345 REVIEWED WITH PT. ADREVIEWED WITH PT 11/14/2018 0945 LASREVIEWED WITH PT 06/11/19 1100 LAS REVIEWED WITH PATIENT 05/05/19 1046 JSREVIEWED WITH PT 01/17/19 1003 BV REVIEWED WITH PATIENT 03/06/19 1106 JS REVIEWED WITH PATIENT 09/22/19 1037 JS. HOSPITALIZATION/MAJOR DIAGNOSTIC PROCEDURE CHILDBIRTH X2 MS 1992 REVIEW OF SYSTEMS REVIEWED BY: PROVIDER: CARTER JORDAN . CONSTITUTIONAL: ANY CHANGE IN YOUR MEDICAL CONDITION? NO . CHILLS NO . FEVER NO . INFECTION: DO YOU HAVE NEW INFECTIONS? NO . DO YOU HAVE HISTORY OF MRSA? NO . MUSCULOSKELETAL: ANY NEW PATTERNS OF PAIN OR NUMBNESS? NO . GASTROENTEROLOGY: ANY NEW CHANGE IN BOWEL CONTROL? NO . GENITOURINARY: ANY NEW CHANGE IN BLADDER CONTROL? NO . IS THERE A CHANCE YOU COULD BE ? NO . HEMATOLOGY/LYMPH: DO YOU TAKE ANY BLOOD THINNERS? (FOR EXAMPLE- COUMADIN, PLAVIX, AGGRENOX, PLATEL, PRADAXA, OR XARELTO) NO . WHEN WAS YOUR LAST DOSE? DATE: TIME: . NEUROLOGY: HAVE YOU FALLEN IN THE PAST 12 MONTHS? NO . ANY NEW EXTREMITY NUMBNESS OR WEAKNESS? NO . CARDIOLOGY: DO YOU HAVE A PACEMAKER OR DEFIBRILLATOR? NO . RESPIRATORY: HAVE YOU BEEN SICK IN THE PAST WEEK? YES, SINUS INFECTION - TAKING ANTIBIOTICS . FEVER NO . FLU LIKE SYMPTOMS? NO . COUGH NO . INTEGUMENTARY: DO YOU HAVE ANY RASHES OR OPEN SORES? NO . ALLERGIC/IMMUNO: ARE YOU ALLERGIC TO IV DYE? NO . ANY NEW ALLERGIES? NO . PSYCHIATRIC: DO YOU HAVE THOUGHTS OF HURTING YOURSELF OR SOMEONE ELSE? NO . ARE YOU ABUSED, NEGLECTED, OR IN AN UNSAFE ENVIRONMENT? NO . ENDOCRINOLOGY: ARE YOU DIABETIC? NO . OTHER: DO YOU NEED ANY PRESCRIPTIONS? NO . IF YES, PLEASE LIST: ____ . ANY NEW PROBLEMS WITH YOUR MEDICATIONS? NO . WHEN DID YOU LAST EAT? ____ . WHEN DID YOU LAST DRINK? ____ . WHAT DID YOU LAST DRINK? ____ . NAME OF PERSON DRIVING YOU HOME? ____ . DO YOU HAVE ANY OTHER QUESTIONS OR CONCERNS NO . VITAL SIGNS WT 125.8 LBS, HT 66.5 IN, BMI 20.00 INDEX, BP 108/52 MM HG, HR 78 /MIN, RR 18 /MIN, TEMP 96.8 F, OXYGEN SAT % 97%, SAFE IN ENV? (Y/N) YES, NA INITIALS AW 1029, REVIEWED BY: HEIDY. EXAMINATION GENERAL EXAMINATION: GENERAL AWAKE,ALERT ,PLEASANT . PSYCH AFFECT NORMAL . LUNGS: LUNG WEIR ARE CLEAR TO AUSCULTATION BILATERALLY. GOOD MOVEMENT OF AIR . HEART: S1, S2 IN A REGULAR RATE AND RHYTHM. NO SIGNIFICANT MURMURS, RUBS OR GALLOPS NOTED . ASSESSMENTS INTERVERTEBRAL DISC DISORDER WITH RADICULOPATHY OF LUMBOSACRAL REGION - M51.17 (PRIMARY) TREATMENT INTERVERTEBRAL DISC DISORDER WITH RADICULOPATHY OF LUMBOSACRAL REGION CONTINUE VOLTAREN GEL, 1 %, DIRECTED, TRANSDERMAL, APPLY SMALL AMOUNT TO AFFECTED AREA RIGHT ANKLE Q8H PRN PAIN PROCEDURE CODES FA211 ESTABILISHED PATIENT [facility] CHARGE DISPOSITION & COMMUNICATION FOLLOW UP 2 MONTHS ELECTRONICALLY SIGNED BY JULIAN MENDOZA ON 10/07/2019 AT 09:03 AM EST DISCLAIMER : THIS IS A VISIT SUMMARY EXTRACTED FROM THE [employer] CHART. IT IS NOT A COPY OF THE [employer] PROGRESS NOTE. CESAR
== END ==
LOC: M PAIN 10:15
PROVIDERS: ATTEND Nurse Practitioner Family
DX: M51.17 Intervertebral disc disorders with radiculopathy, lumbosacral region (principal)

== ENCOUNTER → 2019-12-02 | Outpatient (CLI) | payer MEDICARE ==
--- NOTE | 2019-12-17 04:29 | ECWPNPC ---
PATIENT NAME: MARY NAIR : 1960 GENDER: FEMALE VISIT DATE: 12/02/2019 DISCHARGE DATE: 12/02/19 1001 VISIT LOCKED DATE TIME: PHYSICIAN: CARTER ASTUDILLO PHYSICIAN PAGER NO: [phone] RESOURCE: CARTER ASTUDILLO REASON FOR APPOINTMENT 1. 2 MONTHS HISTORY OF PRESENT ILLNESS HISTORY OF PRESENT ILLNESS: HERE FOR F/U OF CHRONIC LOW BACK PAIN AND RIGHT LEG PAIN.PAIN HAS ESCALATED BEGINNING OF MARCH AFTER RUNNING AFTER [place],ECSPECIALLY ALONG RIGHT LATERAL CALF AND FOOT.RATING PAIN VAS 6/10.HAS RESPONDED WELL TO L5/S1/LESI. PAIN THE PATIENT DESCRIBES THE PAIN... FALL RISK SCREENING: SCREENING :NO FALLS REPORTED IN THE LAST YEAR CURRENT MEDICATIONS TAKING ASACOL 800 MG TABLET DELAYED RELEASE 1 TABLET ORALLY TWICE A DAY TAKING BACLOFEN 20 MG TABLET 1 TABLET ORALLY DAILY TAKING DEPAKOTE ER 500 MG TABLET EXTENDED RELEASE 24 HOUR 1 TABLET ORALLY TWICE A DAY TAKING PROVIGIL 100 MG TABLET 1 TABLET ORALLY ONCE A DAY TAKING TECFIDERA 240 MG TABLET 1 TABLET ORALLY TWICE A DAY TAKING VITAMIN D-3 2000 UNITS CAPSULE 1 CAPSULE ORALLY ONCE A DAY TAKING VITAMIN E 1000 UNIT CAPSULE 1 CAPSULE ORALLY ONCE A DAY TAKING IBUPROFEN 600 MG TABLET 1 TABLET ORALLY TWICE DAILY TAKING MAXALT 10 MG TABLET 1 TABLET ORALLY DAILY NEEDED FOR MIGRAINES MAXIUM MIGRAINES A MONTH =2 TAKING PROLIA 60 MG/ML SOLUTION DIRECTED SUBCUTANEOUS Q SIX MONTHS TAKING CALCIUM 600 + D 600-400 MG-UNIT TABLET 1 TABLET ORALLY DAILY TAKING VOLTAREN 1 % GEL DIRECTED TRANSDERMAL APPLY SMALL AMOUNT TO AFFECTED AREA RIGHT ANKLE Q8H PRN PAIN TAKING NEURONTIN 300 MG CAPSULE 1 CAPSULE ORALLY BID TAKING CEPHALEXIN 500 MG CAPSULE 1 CAPSULE ORALLY EVERY 12 HRS NOT-TAKING PATANOL 0.1 % SOLUTION 1 DROP INTO BOTH EYES OPHTHALMIC TWICE A DAY NEEDED MEDICATION LIST REVIEWED AND RECONCILED WITH THE PATIENT PAST MEDICAL HISTORY MULTIPLE SCLEROSIS (DR. WHITING) SEIZURES ULCERATIVE COLITIS (DR. GRANDA) CARPAL TUNNEL OSTEOPOROSIS; STARTED PROLIA 12/29 SMOKER NON-TOXIC MULTINODULAR GOITER STABLE ON US 2013 (PREVIOUSLY FOLLOWED BY DR. GARCÍA) BL CARPEL TUNNEL - NO SURGERY ECHO 2004 MILD GLOBAL HYPOKINESIS LV EF 50% RT SCIATICA 2017 MINI BOWEL PERFORATION 2002 LOW BACK PAIN RIGHT LEG PAIN ALLERGIES FLAGYL: RED RASH - ALLERGY SURGICAL HISTORY TONSILLECTOMY 9 YEARS OLD ADENOIDECTOMY 9 YEARS OLD COLONSCOPY//NAN 04/07/2010,03/2014 & 2015 COLPOSCOPY CONIZATION FAMILY HISTORY FATHER: 71 YRS, POLYMYALGIA, DIAGNOSED WITH UNSPECIFIED HEART DISEASE MOTHER: ALIVE 86 YRS, HTN, HIGH CHOLESTEROL, CHOLECYSTECTOMY, HYPERTENSION SIBLINGS: ALIVE 57,48 YRS DAUGHTER(S): ALIVE 27,23 YRS MATERNAL GRAND FATHER: BLADDER CANCER AT AGE 80 MATERNAL GRAND MOTHER: , HEART DISEASE, CHF, BYPASS SURGERY MATERNAL UNCLE: , COMPLICATIONS OF IDDM, CHF 2 SISTER(S) - HEALTHY. 2DAUGHTER(S) - HEALTHY. DENIES BREAST, COLON OR OVARIAN CANCERS.\\\\N2\\\\\\\\\\\\\ FATHER FROM [place] DIE[place]. SOCIAL HISTORY GENERAL: TOBACCO USE ARE YOU A:CURRENT SMOKER HOW OFTEN DO YOU SMOKE CIGARETTES?EVERY DAY HOW SOON AFTER YOU WAKE UP DO YOU SMOKE YOUR FIRST CIGARETTE?AFTER 60 MIN HOW MANY CIGARETTES A DAY DO YOU SMOKE?6-10 ARE YOU INTERESTED IN QUITTING?NOT READY TO QUIT PT DOES NOT WANT SMOKING CESSATION HANDOUT PATIENT COUNSELED ON THE DANGERS OF TOBACCO USE AND URGED TO QUIT:09/22/2019 COUNSELED THE PATIENT ON SMOKING EFFECTS, EDUCATION [id number]/11/2019 HIV / HEP-C SCREENING HIV TEST OFFERED TO PATIENT:YES DATE OFFERED:02/14/2019 TEST ACCEPTED:NO REASON:PATIENT DECLINED BROCHURE PROVIDED TO PATIENTYES OTHERS AT HOME: SPOUSE, YOUNGEST DAUGHTER IN COLLEGE. DIET: NO HX EATING DISORDERS. LANGUAGE MOHAWK. DOMESTIC VIOLENCE DO YOU FEEL SAFE IN YOUR ENVIRONMENT?YES NEW PATIENT PAIN DIARY FROM 0-10, WHAT LEVEL IS YOUR PAIN TODAY?7 RECREATIONAL DRUG USE DRUG USE?NO EXERCISE: NO REGULAR EXERCISE. LEARNING BARRIERS / SPECIAL NEEDS CHANGE FROM LAST VISIT?NO BARRIERS TO LEARNING?NO HEARING IMPAIRED?NO VISION IMPAIRED?YES COGNITIVELY IMPAIRED?NO :CORRECTIVE LENSES READINESS TO LEARN?YES LEARNING PREFERENCES?NO LEARNING CAPABILITIES PRESENT?YES EMOTIONAL BARRIERS?NO SPECIAL DEVICES?NO LAB SYSTEMS ANALYST NEEDED?NO PAIN CLINIC PFS, CLERGY, PUBLIC HEALTH REFERRALS PFS REFERRAL NEEDED?NO CLERGY REFERRAL NEEDED?NO PUBLIC HEALTH REFERRAL NEEDED?NO WAS THE PROVIDER NOTIFIED OF ANY PERTINENT INFO?YES N/A HAS THE PATIENT BEEN EDUCATED REGARDING HIS/HER PLAN OF CARE?YES HAS THE PATIENT BEEN EDUCATED REGARDING PAIN, THE RISK FOR PAIN, THE IMPORTANCE OF EFFECTIVE PAIN MANAGEMENT, AND THE PAIN ASSESSMENT PROCESS?YES LATEX QUESTIONNAIRE LATEX ALLERGY : HAVE YOU EVER DEVELOPED ANY TYPE OF REACTION AFTER HANDLING LATEX PRODUCTS SUCH RUBBER GLOVES, CONDOMS, DIAPHRAGMS, BALLOONS, SOCKS, OR UNDERWEAR?NO LATEX ALLERGY : HAVE YOU EVER DEVELOPED ANY TYPE OF REACTION DURING OR AFTER DENTAL APPOINTMENT, VAGINAL/RECTAL EXAMINATION, SURGICAL PROCEDURE, OR ANY OTHER EXPOSURE?NO LATEX RISK : HAVE YOU EVER HAD ANY DIFFICULTY BREATHING OR HIVES AFTER EATING OR HANDLING ANY FRUITS, OR VEGETABLES; SUCH KIWI, BANANAS, STONE FRUITS, OR CHESTNUTSNO LATEX RISK : DO YOU HAVE A PREVIOUS PERSONAL HISTORY OF MORE THAN NINE SURGERIES, SPINA BIFIDA, OR REPEATED CATHERIZATIONS? NO LATEX RISK : ARE YOU FREQUENTLY EXPOSED TO LATEX PRODUCTS IN YOUR OCCUPATION?NO DATE ASKED : 07/22/2019 CAFFEINE NONE. ADVANCE DIRECTIVE ADVANCE DIRECTIVE DISCUSSED WITH PATIENT:YES HCP-1. -STACEY [phone]. 2. MARIA DEL ROSARIO CRUZ- DAUGHTER [phone] SPIRITISM [id number] [facility] MARITAL STATUS: X 32 YRS. 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 SEXUAL HX HAD SEX IN THE LAST 12 MONTHS (VAGINAL, ORAL, OR ANAL)?YES WITHMEN ONLY LMP:POST MENOPAUSE HAVE YOU EVER HAD AN STD?NO REVIEWED WITH PATIENT 08/13/18 1343 JSREVIEWED WITH PATIENT 09/12/18 1454 LAS10/10/18 1041 REVIEWED WITH PT. AD10/28/18 1345 REVIEWED WITH PT. ADREVIEWED WITH PT 11/14/2018 0945 LASREVIEWED WITH PT 06/11/19 1100 LAS REVIEWED WITH PATIENT 05/05/19 1046 JSREVIEWED WITH PT 01/17/19 1003 BV REVIEWED WITH PATIENT 03/06/19 1106 JS REVIEWED WITH PATIENT 09/22/19 1037 JS. HOSPITALIZATION/MAJOR DIAGNOSTIC PROCEDURE CHILDBIRTH X2 MS 1992 REVIEW OF SYSTEMS REVIEWED BY: PROVIDER: CARTER JORDAN . CONSTITUTIONAL: ANY CHANGE IN YOUR MEDICAL CONDITION? NO . CHILLS NO . FEVER NO . INFECTION: DO YOU HAVE NEW INFECTIONS? YES - SINUS INFECTION . DO YOU HAVE HISTORY OF MRSA? NO . MUSCULOSKELETAL: ANY NEW PATTERNS OF PAIN OR NUMBNESS? YES - [place] . GASTROENTEROLOGY: ANY NEW CHANGE IN BOWEL CONTROL? NO . GENITOURINARY: ANY NEW CHANGE IN BLADDER CONTROL? NO . IS THERE A CHANCE YOU COULD BE ? NO . HEMATOLOGY/LYMPH: DO YOU TAKE ANY BLOOD THINNERS? (FOR EXAMPLE- COUMADIN, PLAVIX, AGGRENOX, PLATEL, PRADAXA, OR XARELTO) NO . WHEN WAS YOUR LAST DOSE? DATE: TIME: . NEUROLOGY: HAVE YOU FALLEN IN THE PAST 12 MONTHS? NO . ANY NEW EXTREMITY NUMBNESS OR WEAKNESS? NO . CARDIOLOGY: DO YOU HAVE A PACEMAKER OR DEFIBRILLATOR? NO . RESPIRATORY: HAVE YOU BEEN SICK IN THE PAST WEEK? NO . FEVER NO . FLU LIKE SYMPTOMS? NO . COUGH NO . INTEGUMENTARY: DO YOU HAVE ANY RASHES OR OPEN SORES? NO . ALLERGIC/IMMUNO: ARE YOU ALLERGIC TO IV DYE? NO . ANY NEW ALLERGIES? NO . PSYCHIATRIC: DO YOU HAVE THOUGHTS OF HURTING YOURSELF OR SOMEONE ELSE? NO . ARE YOU ABUSED, NEGLECTED, OR IN AN UNSAFE ENVIRONMENT? NO . ENDOCRINOLOGY: ARE YOU DIABETIC? NO . OTHER: DO YOU NEED ANY PRESCRIPTIONS? NO . IF YES, PLEASE LIST: ____ . ANY NEW PROBLEMS WITH YOUR MEDICATIONS? NO . WHEN DID YOU LAST EAT? ____ . WHEN DID YOU LAST DRINK? ____ . WHAT DID YOU LAST DRINK? ____ . NAME OF PERSON DRIVING YOU HOME? ____ . DO YOU HAVE ANY OTHER QUESTIONS OR CONCERNS NO . VITAL SIGNS WT 125.2 LBS, HT 66.5 IN, BMI 19.90 INDEX, BP 102/61 MM HG, HR 89 /MIN, RR 18 /MIN, TEMP 97.5 F, OXYGEN SAT % 98%, NA INITIALS AW 0936. EXAMINATION GENERAL EXAMINATION: GENERALALERT,NO DISTRESS . PSYCHAFFECT NORMAL . LUNGS:LUNG SOUNDS ARE CLEAR . HEART:HEART RATE REGULAR . MUSCULOSKELETAL:MILD WEAKNESS OVER RIGHT LEG.TREMOR WITH MST RIGHT LEG. NEUROLOGIC EXAM:NORMAL SENSATION LIGHT TOUCH BILAT LEGS. DIAGNOSTIC TESTS REVIEWEDMRI L/S SPINE-05/11/18. ASSESSMENTS INTERVERTEBRAL DISC DISORDER WITH RADICULOPATHY OF LUMBOSACRAL REGION - M51.17 (PRIMARY) TREATMENT INTERVERTEBRAL DISC DISORDER WITH RADICULOPATHY OF LUMBOSACRAL REGION NOTES: L5/S1 LESI. PREVENTIVE MEDICINE PAIN CLINIC TEACHING: PROCEDURE TEACHING PRE EPIDURAL TEACHING INSTRUCTIONS REVIEWED WITH PT. VERBALIZED UNDERSTANDING.. PROCEDURE CODES FA211 ESTABILISHED PATIENT [facility] CHARGE DISPOSITION & COMMUNICATION FOLLOW UP POST (REASON: L5/S1 LESI) ELECTRONICALLY SIGNED BY JULIAN MENDOZA ON 12/16/2019 AT 04:17 PM EST DISCLAIMER : THIS IS A VISIT SUMMARY EXTRACTED FROM THE [employer] CHART. IT IS NOT A COPY OF THE [employer] PROGRESS NOTE. CESAR
== END ==
LOC: M PAIN 09:15
PROVIDERS: ATTEND Nurse Practitioner Family
DX: M51.17 Intervertebral disc disorders with radiculopathy, lumbosacral region (principal); G89.29 Other chronic pain; G35 Multiple sclerosis; F17.210 Nicotine dependence, cigarettes, uncomplicated; Z88.1 Allergy status to other antibiotic agents; Z79.899 Other long term (current) drug therapy

== ENCOUNTER → 2020-01-12 | Outpatient (CLI) | payer MEDICARE ==
[~2020-01-12] MED LIST changes: -ISOVUE-M 200 41% 20ML VIAL (Q9966) As Ordered ONE; +ISOVUE-M 300 61% 15ML VIAL (Q9967) As Ordered ONE
--- NOTE | 2020-01-20 03:33 | ECWPNPC ---
PATIENT NAME: MARY NAIR : 1960 GENDER: FEMALE VISIT DATE: 01/12/2020 DISCHARGE DATE: 01/12/20 1359 VISIT LOCKED DATE TIME: PHYSICIAN: BEV BARBOZA MD PHYSICIAN PAGER NO: [phone] RESOURCE: BEV BARBOZA MD REASON FOR APPOINTMENT 1. L5/S1 LESI HISTORY OF PRESENT ILLNESS HISTORY OF PRESENT ILLNESS: PAIN THE PATIENT DESCRIBES THE PAIN... FALL RISK SCREENING: SCREENING :NO FALLS REPORTED IN THE LAST YEAR CURRENT MEDICATIONS TAKING ASACOL 800 MG TABLET DELAYED RELEASE 1 TABLET ORALLY TWICE A DAY, NOTES: 01/12/20 050 TAKING BACLOFEN 20 MG TABLET 1 TABLET ORALLY DAILY, NOTES: 01/11/201899 TAKING DEPAKOTE ER 500 MG TABLET EXTENDED RELEASE 24 HOUR 1 TABLET ORALLY TWICE A DAY, NOTES: 01/12/20499 TAKING PROVIGIL 100 MG TABLET 1 TABLET ORALLY ONCE A DAY, NOTES: 01/11 500 TAKING TECFIDERA 240 MG TABLET 1 TABLET ORALLY TWICE A DAY, NOTES: 01/11 500 TAKING VITAMIN D-3 2000 UNITS CAPSULE 1 CAPSULE ORALLY ONCE A DAY, NOTES: 01/11 500 TAKING VITAMIN E 1000 UNIT CAPSULE 1 CAPSULE ORALLY ONCE A DAY, NOTES: 01/11 500 TAKING IBUPROFEN 600 MG TABLET 1 TABLET ORALLY TWICE DAILY, NOTES: 12/13 1899 TAKING MAXALT 10 MG TABLET 1 TABLET ORALLY DAILY NEEDED FOR MIGRAINES MAXIUM MIGRAINES A MONTH =2, NOTES: > 1 WEEK TAKING PROLIA 60 MG/ML SOLUTION DIRECTED SUBCUTANEOUS Q SIX MONTHS, NOTES: APPROX 6 MONTHS AGO TAKING CALCIUM 600 + D 600-400 MG-UNIT TABLET 1 TABLET ORALLY DAILY, NOTES: 01/11 500 TAKING VOLTAREN 1 % GEL DIRECTED TRANSDERMAL APPLY SMALL AMOUNT TO AFFECTED AREA RIGHT ANKLE Q8H PRN PAIN, NOTES: TAKING NEURONTIN 300 MG CAPSULE 1 CAPSULE ORALLY BID, NOTES: 01/11 500 NOT-TAKING CEPHALEXIN 500 MG CAPSULE 1 CAPSULE ORALLY EVERY 12 HRS NOT-TAKING PATANOL 0.1 % SOLUTION 1 DROP INTO BOTH EYES OPHTHALMIC TWICE A DAY NEEDED MEDICATION LIST REVIEWED AND RECONCILED WITH THE PATIENT PAST MEDICAL HISTORY MULTIPLE SCLEROSIS (DR. WHITING) SEIZURES- LAST SEIZURE WAS 30 YEARS AGO ULCERATIVE COLITIS (DR. GRANDA) CARPAL TUNNEL OSTEOPOROSIS; STARTED PROLIA 12/29 SMOKER NON-TOXIC MULTINODULAR GOITER STABLE ON US 2013 (PREVIOUSLY FOLLOWED BY DR. GARCÍA) BL CARPEL TUNNEL - NO SURGERY ECHO 2004 MILD GLOBAL HYPOKINESIS LV EF 50% RT SCIATICA 2018 MINI BOWEL PERFORATION 2002 LOW BACK PAIN RIGHT LEG PAIN ALLERGIES FLAGYL: RED RASH - ALLERGY SURGICAL HISTORY TONSILLECTOMY 9 YEARS OLD ADENOIDECTOMY 9 YEARS OLD COLONSCOPY//NAN 04/07/2010,03/2014 & 2015 COLPOSCOPY CONIZATION FAMILY HISTORY FATHER: 71 YRS, POLYMYALGIA, DIAGNOSED WITH UNSPECIFIED HEART DISEASE MOTHER: ALIVE 86 YRS, HTN, HIGH CHOLESTEROL, CHOLECYSTECTOMY, HYPERTENSION SIBLINGS: ALIVE 57,48 YRS DAUGHTER(S): ALIVE 27,23 YRS MATERNAL GRAND FATHER: BLADDER CANCER AT AGE 80 MATERNAL GRAND MOTHER: , HEART DISEASE, CHF, BYPASS SURGERY MATERNAL UNCLE: , COMPLICATIONS OF IDDM, CHF 2 SISTER(S) - HEALTHY. 2DAUGHTER(S) - HEALTHY. DENIES BREAST, COLON OR OVARIAN CANCERS.\\\\N2\\\\\\\\\\\\\\ FATHER FROM [place] DIEASE. SOCIAL HISTORY GENERAL: TOBACCO USE ARE YOU A:CURRENT SMOKER ARE YOU INTERESTED IN QUITTING?NOT READY TO QUIT PT DOES NOT WANT SMOKING CESSATION HANDOUT COUNSELED THE PATIENT ON SMOKING EFFECTS, EDUCATION [id number]/11/2019 HOW MANY CIGARETTES A DAY DO YOU SMOKE?6-10 HOW SOON AFTER YOU WAKE UP DO YOU SMOKE YOUR FIRST CIGARETTE?AFTER 60 MIN HOW OFTEN DO YOU SMOKE CIGARETTES?EVERY DAY PATIENT COUNSELED ON THE DANGERS OF TOBACCO USE AND URGED TO QUIT:12/26/2019 HIV / HEP-C SCREENING HIV TEST OFFERED TO PATIENT:YES DATE OFFERED:02/14/2019 TEST ACCEPTED:NO REASON:PATIENT DECLINED BROCHURE PROVIDED TO PATIENTYES OTHERS AT HOME: SPOUSE, YOUNGEST DAUGHTER IN COLLEGE. DIET: NO HX EATING DISORDERS. LANGUAGE PRYDEINIG. DOMESTIC VIOLENCE DO YOU FEEL SAFE IN YOUR ENVIRONMENT?YES NEW PATIENT PAIN DIARY FROM 0-10, WHAT LEVEL IS YOUR PAIN TODAY?7 RECREATIONAL DRUG USE DRUG USE?NO EXERCISE: NO REGULAR EXERCISE. LEARNING BARRIERS / SPECIAL NEEDS CHANGE FROM LAST VISIT?NO BARRIERS TO LEARNING?NO HEARING IMPAIRED?NO VISION IMPAIRED?YES COGNITIVELY IMPAIRED?NO :CORRECTIVE LENSES READINESS TO LEARN?YES LEARNING PREFERENCES?NO LEARNING CAPABILITIES PRESENT?YES EMOTIONAL BARRIERS?NO SPECIAL DEVICES?NO WAREHOUSE HANDLER NEEDED?NO PAIN CLINIC PFS, CLERGY, PUBLIC HEALTH REFERRALS PFS REFERRAL NEEDED?NO CLERGY REFERRAL NEEDED?NO PUBLIC HEALTH REFERRAL NEEDED?NO WAS THE PROVIDER NOTIFIED OF ANY PERTINENT INFO?YES N/A HAS THE PATIENT BEEN EDUCATED REGARDING HIS/HER PLAN OF CARE?YES HAS THE PATIENT BEEN EDUCATED REGARDING PAIN, THE RISK FOR PAIN, THE IMPORTANCE OF EFFECTIVE PAIN MANAGEMENT, AND THE PAIN ASSESSMENT PROCESS?YES LATEX QUESTIONNAIRE LATEX ALLERGY : HAVE YOU EVER DEVELOPED ANY TYPE OF REACTION AFTER HANDLING LATEX PRODUCTS SUCH RUBBER GLOVES, CONDOMS, DIAPHRAGMS, BALLOONS, SOCKS, OR UNDERWEAR?NO LATEX ALLERGY : HAVE YOU EVER DEVELOPED ANY TYPE OF REACTION DURING OR AFTER DENTAL APPOINTMENT, VAGINAL/RECTAL EXAMINATION, SURGICAL PROCEDURE, OR ANY OTHER EXPOSURE?NO DATE ASKED : 07/22/2019 LATEX RISK : HAVE YOU EVER HAD ANY DIFFICULTY BREATHING OR HIVES AFTER EATING OR HANDLING ANY FRUITS, OR VEGETABLES; SUCH KIWI, BANANAS, STONE FRUITS, OR CHESTNUTSNO LATEX RISK : DO YOU HAVE A PREVIOUS PERSONAL HISTORY OF MORE THAN NINE SURGERIES, SPINA BIFIDA, OR REPEATED CATHERIZATIONS? NO LATEX RISK : ARE YOU FREQUENTLY EXPOSED TO LATEX PRODUCTS IN YOUR OCCUPATION?NO CAFFEINE NONE. ADVANCE DIRECTIVE ADVANCE DIRECTIVE DISCUSSED WITH PATIENT:YES HCP-1. -STACEY [phone]. 2. MARIA DEL ROSARIO CRUZ- DAUGHTER [phone] ZOROASTRIAN [id number] SABIANIST MARITAL STATUS: X 32 YRS. 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 SEXUAL HX HAD SEX IN THE LAST 12 MONTHS (VAGINAL, ORAL, OR ANAL)?YES WITHMEN ONLY LMP:POST MENOPAUSE HAVE YOU EVER HAD AN STD?NO REVIEWED WITH PATIENT 08/13/18 1343 JSREVIEWED WITH PATIENT 09/12/18 1454 LAS10/10/18 1041 REVIEWED WITH PT. AD10/28/18 1345 REVIEWED WITH PT. ADREVIEWED WITH PT 11/14/2018 0945 LASREVIEWED WITH PT 06/11/19 1100 LAS REVIEWED WITH PATIENT 05/05/19 1046 JSREVIEWED WITH PT 01/17/19 1003 BV REVIEWED WITH PATIENT 03/06/19 1106 JS REVIEWED WITH PATIENT 09/22/19 1037 JSPRE PROCEDURE PHONE CALL COMPLETED 12/26/2019 1053 NLJ. HOSPITALIZATION/MAJOR DIAGNOSTIC PROCEDURE CHILDBIRTH X2 MS 1992 REVIEW OF SYSTEMS REVIEWED BY: PROVIDER: . CONSTITUTIONAL: ANY CHANGE IN YOUR MEDICAL CONDITION? NO . CHILLS NO . FEVER NO . INFECTION: DO YOU HAVE NEW INFECTIONS? NO . DO YOU HAVE HISTORY OF MRSA? NO . MUSCULOSKELETAL: ANY NEW PATTERNS OF PAIN OR NUMBNESS? NO . GASTROENTEROLOGY: ANY NEW CHANGE IN BOWEL CONTROL? NO . GENITOURINARY: ANY NEW CHANGE IN BLADDER CONTROL? NO . IS THERE A CHANCE YOU COULD BE ? NO . HEMATOLOGY/LYMPH: DO YOU TAKE ANY BLOOD THINNERS? (FOR EXAMPLE- COUMADIN, PLAVIX, AGGRENOX, PLATEL, PRADAXA, OR XARELTO) NO . WHEN WAS YOUR LAST DOSE? DATE: TIME: . NEUROLOGY: HAVE YOU FALLEN IN THE PAST 12 MONTHS? NO . ANY NEW EXTREMITY NUMBNESS OR WEAKNESS? NO . CARDIOLOGY: DO YOU HAVE A PACEMAKER OR DEFIBRILLATOR? NO . RESPIRATORY: HAVE YOU BEEN SICK IN THE PAST WEEK? NO . FEVER NO . FLU LIKE SYMPTOMS? NO . COUGH NO . INTEGUMENTARY: DO YOU HAVE ANY RASHES OR OPEN SORES? NO . ALLERGIC/IMMUNO: ARE YOU ALLERGIC TO IV DYE? NO . ANY NEW ALLERGIES? NO . PSYCHIATRIC: DO YOU HAVE THOUGHTS OF HURTING YOURSELF OR SOMEONE ELSE? NO . ARE YOU ABUSED, NEGLECTED, OR IN AN UNSAFE ENVIRONMENT? NO . ENDOCRINOLOGY: ARE YOU DIABETIC? NO . OTHER: DO YOU NEED ANY PRESCRIPTIONS? NO . IF YES, PLEASE LIST: ____ . ANY NEW PROBLEMS WITH YOUR MEDICATIONS? NO . WHEN DID YOU LAST EAT? ____01/11 0500 . WHEN DID YOU LAST DRINK? ____01/11 0900 . WHAT DID YOU LAST DRINK? ____CRANBERRY JUICE . NAME OF PERSON DRIVING YOU HOME? ____HUSBAND STACEY . DO YOU HAVE ANY OTHER QUESTIONS OR CONCERNS NO . VITAL SIGNS WT 124.6 LBS, HT 66.5 IN, BMI 19.81 INDEX, BP 113/69 MM HG, HR 67 /MIN, RR 18 /MIN, TEMP 97.2 F, OXYGEN SAT % 100%, SAFE IN ENV? (Y/N) YES, NA INITIALS AW 1205, REVIEWED BY: TONY. ASSESSMENTS INTERVERTEBRAL DISC DISORDER WITH RADICULOPATHY OF LUMBOSACRAL REGION - M51.17 (PRIMARY) TREATMENT INTERVERTEBRAL DISC DISORDER WITH RADICULOPATHY OF LUMBOSACRAL REGION [facility] FLUORO GUIDE SPINE INJECTION (PAIN)[id number] PROCEDURES PRE PROCEDURE DIAGNOSIS LUMBAR DISC DISORDER WITH RADICULOPATHY POST PROCEDURE DIAGNOSIS LUMBAR DISC DISORDER WITH RADICULOPATHY PROCEDURE LUMBAR EPIDURAL STEROID INJECTION UNDER FLUOROSCOPIC GUIDANCE SURGEON DR. 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 I EVALUATED THE PATIENT AND REVIEWED THE CHART. I WENT OVER THE RISKS, ALTERNATIVES, AND BENEFITS ASSOCIATED WITH THIS PROCEDURE. THE PATIENT WOULD LIKE TO PROCEED AND GIVES CONSENT TO PERFORM THE PROCEDURE. THE PATIENT DENIES UNEXPLAINABLE WEIGHT LOSS, FEVER, CHILLS, OR NEW CHANGES IN URINARY OR BOWEL CONTROL. DESCRIPTION OF PROCEDURE THE PATIENT WAS BROUGHT TO THE PROCEDURE ROOM AND PLACED IN THE PRONE POSITION. THE LUMBOSACRAL AREA WAS CLEANED WITH BETADINE SOLUTION AND DRAPED ASEPTICALLY. THE PROCEDURE WAS DONE UNDER STERILE CONDITIONS. I CHECKED LATERALITY AND THE LEVEL WHERE THE PROCEDURE WAS GOING TO BE PERFORMED WITH THE PATIENT AND THE SUPPORTING STAFF AT THE MOMENT OF THE TIME OUT IN THE PROCEDURE ROOM. UNDER FLUOROSCOPIC GUIDANCE, THE TARGET POINT WAS SELECTED AT THE INTERLAMINAR LEVEL OF L5-S1. LIDOCAINE WAS USED TO NUMB THE SKIN AND THE SUBCUTANEOUS TISSUE BELOW IT. EPIDURAL TUOHY NEEDLE, 17-GAUGE, WAS ADVANCED UNDER FLUOROSCOPIC GUIDANCE AND FOLLOWING PATIENT FEEDBACK UNTIL THE EPIDURAL SPACE WAS REACHED, 7 CM DEEP INTO THE SKIN BY THE LOSS OF RESISTANCE TECHNIQUE. ISOVUE M DYE 30%, 0.25 ML, WAS INJECTED SHOWING ADEQUATE SPREAD OF THE DYE. THEN, A SOLUTION OF 3 ML OF NORMAL SALINE WITH DEPO-MEDROL 60 MG WAS INJECTED SLOWLY FOLLOWING PATIENT FEEDBACK. THERE WAS NO EVIDENCE OF BLOOD, PARESTHESIA OR CEREBROSPINAL FLUID DURING THE PROCEDURE. THE PATIENT WAS SENT TO THE RECOVERY ROOM. THE PATIENT WAS MOVING THE EXTREMITIES AND DOING WELL. THERE WAS NO COMPLICATION DURING THE PROCEDURE. FLUOROSCOPY TIME WAS 12 SECONDS. POST PROCEDURE NOTE THE PATIENT WILL BE SEEN IN A FOLLOW UP IN THE NEXT FEW WEEKS. INSTRUCTIONS WERE GIVEN, QUESTIONS WERE ANSWERED, AND THE PATIENT EXPRESSED UNDERSTANDING AND AGREES WITH THE PLAN. I AM LOOKING FOR LONG LASTING PAIN RELIEF FOR THE PATIENT WITH THIS INJECTION. I, KLAUDIA RECIO, DOCUMENTED THE ABOVE INFORMATION ACTING A SCRIBE FOR DR. BARBOZA. I HAVE REVIEWED THE ABOVE DOCUMENT, WRITTEN BY KLAUDIA PEREZ AND I VERIFY THAT IT IS ACCURATE. PROCEDURE CODES 00854 LUMBAR/SACRAL W/ IMAGING 6045F RADXPS IN END [id number] PXD DISPOSITION & COMMUNICATION FOLLOW UP 2 WEEKS ELECTRONICALLY SIGNED BY BEV BARBOZA MD, MD ON 01/19/2020 AT 03:31 PM EDT DISCLAIMER : THIS IS A VISIT SUMMARY EXTRACTED FROM THE [employer] CHART. IT IS NOT A COPY OF THE [employer] PROGRESS NOTE. CESAR
== END ==
LOC: M PAIN 11:30
PROVIDERS: ATTEND Anesthesiology
DX: M51.17 Intervertebral disc disorders with radiculopathy, lumbosacral region (principal)
CPT/HCPCS: 62323; J1030; Q9967

== ENCOUNTER → 2020-01-27 | Outpatient (CLI) | payer MEDICARE ==
--- NOTE | 2020-02-12 01:44 | ECWPNPC ---
PATIENT NAME: MARY NAIR : 1960 GENDER: FEMALE VISIT DATE: 01/27/2020 DISCHARGE DATE: 01/27/20 1119 VISIT LOCKED DATE TIME: PHYSICIAN: CARTER ASTUDILLO PHYSICIAN PAGER NO: [phone] RESOURCE: CARTER ASTUDILLO REASON FOR APPOINTMENT 1. POST PROCEDURE HISTORY OF PRESENT ILLNESS HISTORY OF PRESENT ILLNESS: HERE FOR POST PROCEDURE F/U.HAD LESI ON 01/12/2020.REPORTING >50% IMPROVEMENT OVERALL WITH BACK PAIN AND RIGHT LEG PAIN.CONTINUES TO HAVE RESIDUAL RIGHT ANTERIOR LATERAL TIBIA/FIBULA PAIN.RATING PAIN VAS 3/10. PAIN THE PATIENT DESCRIBES THE PAIN... FALL RISK SCREENING: SCREENING :NO FALLS REPORTED IN THE LAST YEAR CURRENT MEDICATIONS TAKING ASACOL 800 MG TABLET DELAYED RELEASE 1 TABLET ORALLY TWICE A DAY TAKING BACLOFEN 20 MG TABLET 1 TABLET ORALLY DAILY TAKING DEPAKOTE ER 500 MG TABLET EXTENDED RELEASE 24 HOUR 1 TABLET ORALLY TWICE A DAY TAKING PROVIGIL 100 MG TABLET 1 TABLET ORALLY ONCE A DAY TAKING TECFIDERA 240 MG TABLET 1 TABLET ORALLY TWICE A DAY TAKING VITAMIN D-3 2000 UNITS CAPSULE 1 CAPSULE ORALLY ONCE A DAY TAKING VITAMIN E 1000 UNIT CAPSULE 1 CAPSULE ORALLY ONCE A DAY TAKING IBUPROFEN 600 MG TABLET 1 TABLET ORALLY TWICE DAILY TAKING MAXALT 10 MG TABLET 1 TABLET ORALLY DAILY NEEDED FOR MIGRAINES MAXIUM MIGRAINES A MONTH =2 TAKING PROLIA 60 MG/ML SOLUTION DIRECTED SUBCUTANEOUS Q SIX MONTHS TAKING CALCIUM 600 + D 600-400 MG-UNIT TABLET 1 TABLET ORALLY DAILY TAKING VOLTAREN 1 % GEL DIRECTED TRANSDERMAL APPLY SMALL AMOUNT TO AFFECTED AREA RIGHT ANKLE Q8H PRN PAIN TAKING NEURONTIN 300 MG CAPSULE 1 CAPSULE ORALLY BID NOT-TAKING CEPHALEXIN 500 MG CAPSULE 1 CAPSULE ORALLY EVERY 12 HRS NOT-TAKING PATANOL 0.1 % SOLUTION 1 DROP INTO BOTH EYES OPHTHALMIC TWICE A DAY NEEDED MEDICATION LIST REVIEWED AND RECONCILED WITH THE PATIENT PAST MEDICAL HISTORY MULTIPLE SCLEROSIS (DR. WHITING) SEIZURES- LAST SEIZURE WAS 30 YEARS AGO ULCERATIVE COLITIS (DR. GRANDA) CARPAL TUNNEL OSTEOPOROSIS; STARTED PROLIA 12/29 SMOKER NON-TOXIC MULTINODULAR GOITER STABLE ON US 2008, 2013 (PREVIOUSLY FOLLOWED BY DR. GARCÍA) BL CARPEL TUNNEL - NO SURGERY ECHO 2004 MILD GLOBAL HYPOKINESIS LV EF 50% RT SCIATICA 2017 MINI BOWEL PERFORATION 2002 LOW BACK PAIN RIGHT LEG PAIN ALLERGIES FLAGYL: RED RASH - ALLERGY SURGICAL HISTORY TONSILLECTOMY 9 YEARS OLD ADENOIDECTOMY 9 YEARS OLD COLONSCOPY//NAN 04/07/2010,03/2014 & 2016 COLPOSCOPY CONIZATION FAMILY HISTORY FATHER: 71 YRS, POLYMYALGIA, DIAGNOSED WITH UNSPECIFIED HEART DISEASE MOTHER: ALIVE 86 YRS, HTN, HIGH CHOLESTEROL, CHOLECYSTECTOMY, HYPERTENSION SIBLINGS: ALIVE 57,48 YRS DAUGHTER(S): ALIVE 27,23 YRS MATERNAL GRAND FATHER: BLADDER CANCER AT AGE 80 MATERNAL GRAND MOTHER: , HEART DISEASE, CHF, BYPASS SURGERY MATERNAL UNCLE: , COMPLICATIONS OF IDDM, CHF 2 SISTER(S) - HEALTHY. 2DAUGHTER(S) - HEALTHY. DENIES BREAST, COLON OR OVARIAN CANCERS.\\\\N2\\\\\\\\\\\\ FATHER FROM [place] D[place]. SOCIAL HISTORY GENERAL: TOBACCO USE ARE YOU A:CURRENT SMOKER ARE YOU INTERESTED IN QUITTING?NOT READY TO QUIT PT DOES NOT WANT SMOKING CESSATION HANDOUT COUNSELED THE PATIENT ON SMOKING EFFECTS, EDUCATION [id number]/11/2019 HOW MANY CIGARETTES A DAY DO YOU SMOKE?6-10 HOW SOON AFTER YOU WAKE UP DO YOU SMOKE YOUR FIRST CIGARETTE?AFTER 60 MIN HOW OFTEN DO YOU SMOKE CIGARETTES?EVERY DAY PATIENT COUNSELED ON THE DANGERS OF TOBACCO USE AND URGED TO QUIT:01/27/2020 HIV / HEP-C SCREENING HIV TEST OFFERED TO PATIENT:YES DATE OFFERED:02/14/2019 TEST ACCEPTED:NO REASON:PATIENT DECLINED BROCHURE PROVIDED TO PATIENTYES OTHERS AT HOME: SPOUSE, YOUNGEST DAUGHTER IN COLLEGE. DIET: NO HX EATING DISORDERS. LANGUAGE MALAYSIAN. DOMESTIC VIOLENCE DO YOU FEEL SAFE IN YOUR ENVIRONMENT?YES NEW PATIENT PAIN DIARY FROM 0-10, WHAT LEVEL IS YOUR PAIN TODAY?7 RECREATIONAL DRUG USE DRUG USE?NO EXERCISE: NO REGULAR EXERCISE. 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?NO PAIN CLINIC PFS, CLERGY, PUBLIC HEALTH REFERRALS PFS REFERRAL NEEDED?NO CLERGY REFERRAL NEEDED?NO PUBLIC HEALTH REFERRAL NEEDED?NO WAS THE PROVIDER NOTIFIED OF ANY PERTINENT INFO?YES N/A HAS THE PATIENT BEEN EDUCATED REGARDING HIS/HER PLAN OF CARE?YES HAS THE PATIENT BEEN EDUCATED REGARDING PAIN, THE RISK FOR PAIN, THE IMPORTANCE OF EFFECTIVE PAIN MANAGEMENT, AND THE PAIN ASSESSMENT PROCESS?YES LATEX QUESTIONNAIRE LATEX ALLERGY : HAVE YOU EVER DEVELOPED ANY TYPE OF REACTION AFTER HANDLING LATEX PRODUCTS SUCH RUBBER GLOVES, CONDOMS, DIAPHRAGMS, BALLOONS, SOCKS, OR UNDERWEAR?NO LATEX ALLERGY : HAVE YOU EVER DEVELOPED ANY TYPE OF REACTION DURING OR AFTER DENTAL APPOINTMENT, VAGINAL/RECTAL EXAMINATION, SURGICAL PROCEDURE, OR ANY OTHER EXPOSURE?NO LATEX RISK : HAVE YOU EVER HAD ANY DIFFICULTY BREATHING OR HIVES AFTER EATING OR HANDLING ANY FRUITS, OR VEGETABLES; SUCH KIWI, BANANAS, STONE FRUITS, OR CHESTNUTSNO LATEX RISK : DO YOU HAVE A PREVIOUS PERSONAL HISTORY OF MORE THAN NINE SURGERIES, SPINA BIFIDA, OR REPEATED CATHERIZATIONS? NO LATEX RISK : ARE YOU FREQUENTLY EXPOSED TO LATEX PRODUCTS IN YOUR OCCUPATION?NO DATE ASKED : 01/27/2020 CAFFEINE NONE. ADVANCE DIRECTIVE ADVANCE DIRECTIVE DISCUSSED WITH PATIENT:YES HCP-1. -STACEY [phone]. 2. MARIA DEL ROSARIO CRUZ- DAUGHTER [phone] JEW [id number] YAZIDISM MARITAL STATUS: X 32 YRS. 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 SEXUAL HX HAD SEX IN THE LAST 12 MONTHS (VAGINAL, ORAL, OR ANAL)?YES WITHMEN ONLY LMP:POST MENOPAUSE HAVE YOU EVER HAD AN STD?NO HOSPITALIZATION/MAJOR DIAGNOSTIC PROCEDURE CHILDBIRTH X2 MS 1992 REVIEW OF SYSTEMS REVIEWED BY: PROVIDER: CARTER JORDAN . CONSTITUTIONAL: ANY CHANGE IN YOUR MEDICAL CONDITION? NO . CHILLS NO . FEVER NO . INFECTION: DO YOU HAVE NEW INFECTIONS? NO . DO YOU HAVE HISTORY OF MRSA? NO . MUSCULOSKELETAL: ANY NEW PATTERNS OF PAIN OR NUMBNESS? NO . GASTROENTEROLOGY: ANY NEW CHANGE IN BOWEL CONTROL? NO . GENITOURINARY: ANY NEW CHANGE IN BLADDER CONTROL? NO . IS THERE A CHANCE YOU COULD BE ? NO . HEMATOLOGY/LYMPH: DO YOU TAKE ANY BLOOD THINNERS? (FOR EXAMPLE- COUMADIN, PLAVIX, AGGRENOX, PLATEL, PRADAXA, OR XARELTO) NO . WHEN WAS YOUR LAST DOSE? DATE: TIME: . NEUROLOGY: HAVE YOU FALLEN IN THE PAST 12 MONTHS? NO . ANY NEW EXTREMITY NUMBNESS OR WEAKNESS? NO . CARDIOLOGY: DO YOU HAVE A PACEMAKER OR DEFIBRILLATOR? NO . RESPIRATORY: HAVE YOU BEEN SICK IN THE PAST WEEK? NO . FEVER NO . FLU LIKE SYMPTOMS? NO . COUGH NO . INTEGUMENTARY: DO YOU HAVE ANY RASHES OR OPEN SORES? NO . ALLERGIC/IMMUNO: ARE YOU ALLERGIC TO IV DYE? NO . ANY NEW ALLERGIES? NO . PSYCHIATRIC: DO YOU HAVE THOUGHTS OF HURTING YOURSELF OR SOMEONE ELSE? NO . ARE YOU ABUSED, NEGLECTED, OR IN AN UNSAFE ENVIRONMENT? NO . ENDOCRINOLOGY: ARE YOU DIABETIC? NO . OTHER: DO YOU NEED ANY PRESCRIPTIONS? NO . IF YES, PLEASE LIST: ____ . ANY NEW PROBLEMS WITH YOUR MEDICATIONS? NO . WHEN DID YOU LAST EAT? ____ . WHEN DID YOU LAST DRINK? ____ . WHAT DID YOU LAST DRINK? ____ . NAME OF PERSON DRIVING YOU HOME? ____ . DO YOU HAVE ANY OTHER QUESTIONS OR CONCERNS NO . VITAL SIGNS WT 124.2 LBS, HT 66.5 IN, BMI 19.74 INDEX, BP 102/55 MM HG, HR 74 /MIN, RR 16 /MIN, TEMP 98.0 F, OXYGEN SAT % 97, SAFE IN ENV? (Y/N) Y, REVIEWED BY: KIET. EXAMINATION GENERAL EXAMINATION: GENERALALERT,NO DISTRESS . PSYCHAFFECT NORMAL . LUNGS:LUNG SOUNDS ARE CLEAR . HEART:HEART RATE REGULAR . MUSCULOSKELETAL:MILD WEAKNESS OVER RIGHT LEG.TREMOR WITH MST RIGHT LEG. NEUROLOGIC EXAM:NORMAL SENSATION LIGHT TOUCH BILAT LEGS. DIAGNOSTIC TESTS REVIEWEDMRI L/S SPINE-05/11/18. ASSESSMENTS INTERVERTEBRAL DISC DISORDER WITH RADICULOPATHY OF LUMBOSACRAL REGION - M51.17 (PRIMARY) TREATMENT INTERVERTEBRAL DISC DISORDER WITH RADICULOPATHY OF LUMBOSACRAL REGION NOTES: CONTINUE CONSERVATIVE CARE AND HOME STRETCHING EXERCISES. PREVENTIVE MEDICINE PAIN CLINIC TEACHING: THE PATIENT HAS BEEN EDUCATED REGARDING HIS/HER PLAN OF CARE : DISCUSSED AND REVIEWED WRITTEN AND VERBAL INSTRUCTIONS WITH PATIENT REGARDING TREATMENT PLAN, PT ACKNOWLEDGED UNDERSTANDING. KIET PROCEDURE CODES FA211 ESTABILISHED PATIENT [facility] CHARGE DISPOSITION & COMMUNICATION ELECTRONICALLY SIGNED BY JULIAN MENDOZA ON 02/11/2020 AT 12:01 PM EDT DISCLAIMER : THIS IS A VISIT SUMMARY EXTRACTED FROM THE [employer] CHART. IT IS NOT A COPY OF THE [employer] PROGRESS NOTE. MTDD
== END ==
LOC: M PAIN 10:15
PROVIDERS: ATTEND Nurse Practitioner Family
DX: M51.17 Intervertebral disc disorders with radiculopathy, lumbosacral region (principal); G35 Multiple sclerosis; K51.90 Ulcerative colitis, unspecified, without complications; M81.0 Age-related osteoporosis without current pathological fracture; F17.210 Nicotine dependence, cigarettes, uncomplicated; Z79.899 Other long term (current) drug therapy; Z88.1 Allergy status to other antibiotic agents

== ENCOUNTER → 2020-04-27 | Outpatient (CLI) | payer MEDICARE ==
--- NOTE | 2020-05-05 06:06 | ECWPNPC ---
PATIENT NAME: MARY NAIR : 1960 GENDER: FEMALE VISIT DATE: 04/27/2020 DISCHARGE DATE: 04/27/20 1111 VISIT LOCKED DATE TIME: PHYSICIAN: CARTER ASTUDILLO PHYSICIAN PAGER NO: [phone] RESOURCE: CARTER ASTUDILLO REASON FOR APPOINTMENT 1. RIGHT LEG HISTORY OF PRESENT ILLNESS GENERAL: HERE FOR FOLLOW-UP OF CHRONIC RIGHT LATERAL CALF AND FOOT PAIN. PAIN IS INCREASED OVER THE PAST MONTH. STATES SHE'S BEEN OVERDOING AROUND THE HOUSE. RATING PAIN LEVEL A 7/10 VAS. HAS RESPONDED WELL TO L5-S1 LESI IN THE PAST. DISCUSSED TREATMENT PLAN. -. FALL RISK SCREENING: SCREENING :NO FALLS REPORTED IN THE LAST YEAR PAIN SCREENING: PATIENT HAS A COMPLAINT OF ACUTE OR CHRONIC PAIN :YES LOCATION OF PAIN:LEG(S) RIGHT LATERAL CALF INTENSITY OF PAIN (SCALE OF 1 TO 10):7 WHAT DOES YOUR PAIN FEEL LIKE:ACHING, INTERMITTENT, SHARP, STABBING, TENDER, THROBBING, SORE, SHOOTING NURSING NOTE: -. PAIN CENTER INTAKE QUESTIONS: DO YOU HAVE A HISTORY OF MRSA? :NO DO YOU TAKE A BLOOD THINNERS? :NO DO YOU HAVE ANY BLEEDING DISORDERS? :NO ANY NEW NUMBNESS OR WEAKNESS IN YOUR LEGS OR ARMS? :NO ANY PACEMAKER,DEFIBRILLATOR, OR DORSAL COLUMN STIMULATOR? :NO DO YOU HAVE ANY RASHES OR OPEN SORES? :NO ARE YOU ALLERGIC TO IV DYE? :NO ARE YOU DIABETIC? :NO ANY NEW PROBLEMS WITH YOUR MEDICATIONS? :NO HAVE YOU RECEIVED A VACCINE IN THE PAST 30 DAYS? :NO DO YOU PLAN TO RECEIVE A VACCINE IN THE NEXT 21 DAYS? :NO DO YOU NEED ANY PRESCRIPTION? :NO DO YOU TAKE ANY IMMUNOSUPPRESSIVE MEDICATIONS? :NO IS THERE A CHANCE YOU COULD BE ? :NO ARE YOU BREAST FEEDING? :NO CURRENT MEDICATIONS TAKING ASACOL 800 MG TABLET DELAYED RELEASE 1 TABLET ORALLY TWICE A DAY TAKING BACLOFEN 20 MG TABLET 1 TABLET ORALLY DAILY TAKING DEPAKOTE ER 500 MG TABLET EXTENDED RELEASE 24 HOUR 1 TABLET ORALLY TWICE A DAY TAKING PROVIGIL 100 MG TABLET 1 TABLET ORALLY ONCE A DAY TAKING TECFIDERA 240 MG TABLET 1 TABLET ORALLY TWICE A DAY TAKING VITAMIN D-3 2000 UNITS CAPSULE 1 CAPSULE ORALLY ONCE A DAY TAKING VITAMIN E 1000 UNIT CAPSULE 1 CAPSULE ORALLY ONCE A DAY TAKING IBUPROFEN 600 MG TABLET 1 TABLET ORALLY TWICE DAILY TAKING PROLIA 60 MG/ML SOLUTION DIRECTED SUBCUTANEOUS Q SIX MONTHS TAKING CALCIUM 600 + D 600-400 MG-UNIT TABLET 1 TABLET ORALLY DAILY TAKING VOLTAREN 1 % GEL DIRECTED TRANSDERMAL APPLY SMALL AMOUNT TO AFFECTED AREA RIGHT ANKLE Q8H PRN PAIN TAKING NEURONTIN 300 MG CAPSULE 1 CAPSULE ORALLY BID TAKING MAXALT 10 MG TABLET 1 TABLET ORALLY DAILY NEEDED FOR MIGRAINES MAXIUM MIGRAINES A MONTH =2 NOT-TAKING CEPHALEXIN 500 MG CAPSULE 1 CAPSULE ORALLY EVERY 12 HRS NOT-TAKING PATANOL 0.1 % SOLUTION 1 DROP INTO BOTH EYES OPHTHALMIC TWICE A DAY NEEDED MEDICATION LIST REVIEWED AND RECONCILED WITH THE PATIENT PAST MEDICAL HISTORY MULTIPLE SCLEROSIS (DR. WHITING) SEIZURES- LAST SEIZURE WAS 30 YEARS AGO ULCERATIVE COLITIS (DR. GRANDA) CARPAL TUNNEL OSTEOPOROSIS; STARTED PROLIA 12/29 SMOKER NON-TOXIC MULTINODULAR GOITER STABLE ON US 2008, 2013, 09/28 BL CARPAL TUNNEL - NO SURGERY ECHO 2004 MILD GLOBAL HYPOKINESIS LV EF 50% RT SCIATICA 2018 MINI BOWEL PERFORATION 2002 LOW BACK PAIN RIGHT LEG PAIN ALLERGIES FLAGYL: RED RASH - ALLERGY SURGICAL HISTORY TONSILLECTOMY 9 YEARS OLD ADENOIDECTOMY 9 YEARS OLD COLONSCOPY//[place] 04/07/2010,03/2014 & 2015 COLPOSCOPY CONIZATION FAMILY HISTORY FATHER: 71 YRS, POLYMYALGIA, DIAGNOSED WITH UNSPECIFIED HEART DISEASE MOTHER: ALIVE 86 YRS, HTN, HIGH CHOLESTEROL, CHOLECYSTECTOMY, HYPERTENSION SIBLINGS: ALIVE 57,48 YRS DAUGHTER(S): ALIVE 27,23 YRS MATERNAL GRAND FATHER: BLADDER CANCER AT AGE 80 MATERNAL GRAND MOTHER: , HEART DISEASE, CHF, BYPASS SURGERY MATERNAL UNCLE: , COMPLICATIONS OF IDDM, CHF 2 SISTER(S) - HEALTHY. 2DAUGHTER(S) - HEALTHY. DENIES BREAST, COLON OR OVARIAN CANCERS.\\\\N2\\\\\\\\\\\\ FATHER FROM [place] D[place]. SOCIAL HISTORY GENERAL: TOBACCO USE ARE YOU A:CURRENT SMOKER ARE YOU INTERESTED IN QUITTING?NOT READY TO QUIT PT DOES NOT WANT SMOKING CESSATION HANDOUT COUNSELED THE PATIENT ON SMOKING EFFECTS, EDUCATION [id number]/21/2020 HOW MANY CIGARETTES A DAY DO YOU SMOKE?6-10 HOW SOON AFTER YOU WAKE UP DO YOU SMOKE YOUR FIRST CIGARETTE?AFTER 60 MIN HOW OFTEN DO YOU SMOKE CIGARETTES?EVERY DAY PATIENT COUNSELED ON THE DANGERS OF TOBACCO USE AND URGED TO QUIT:04/27/2020 LATEX QUESTIONNAIRE LATEX ALLERGY : HAVE YOU EVER DEVELOPED ANY TYPE OF REACTION AFTER HANDLING LATEX PRODUCTS SUCH RUBBER GLOVES, CONDOMS, DIAPHRAGMS, BALLOONS, SOCKS, OR UNDERWEAR?NO LATEX ALLERGY : HAVE YOU EVER DEVELOPED ANY TYPE OF REACTION DURING OR AFTER DENTAL APPOINTMENT, VAGINAL/RECTAL EXAMINATION, SURGICAL PROCEDURE, OR ANY OTHER EXPOSURE?NO LATEX RISK : HAVE YOU EVER HAD ANY DIFFICULTY BREATHING OR HIVES AFTER EATING OR HANDLING ANY FRUITS, OR VEGETABLES; SUCH KIWI, BANANAS, STONE FRUITS, OR CHESTNUTSNO LATEX RISK : DO YOU HAVE A PREVIOUS PERSONAL HISTORY OF MORE THAN NINE SURGERIES, SPINA BIFIDA, OR REPEATED CATHERIZATIONS? NO LATEX RISK : ARE YOU FREQUENTLY EXPOSED TO LATEX PRODUCTS IN YOUR OCCUPATION?NO DATE ASKED : 04/27/2020 ALCOHOL SCREENING DID YOU HAVE A DRINK CONTAINING ALCOHOL IN THE PAST YEAR?NO POINTS0 INTERPRETATIONNEGATIVE RECREATIONAL DRUG USE DRUG USE?NO CAFFEINE NONE. SEXUAL HX HAD SEX IN THE LAST 12 MONTHS (VAGINAL, ORAL, OR ANAL)?YES WITHMEN ONLY LMP:POST MENOPAUSE HAVE YOU EVER HAD AN STD?NO HIV / HEP-C SCREENING HIV TEST OFFERED TO PATIENT:YES DATE OFFERED:02/14/2019 TEST ACCEPTED:NO REASON:PATIENT DECLINED BROCHURE PROVIDED TO PATIENTYES RASTAFARIAN [id number] [employer]ANG[employer]AGE SAUDI ARABIAN. 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 DIET: NO HX EATING DISORDERS. EXERCISE: NO REGULAR EXERCISE. MARITAL STATUS: X 32 YRS. OTHERS AT HOME: SPOUSE, YOUNGEST DAUGHTER IN COLLEGE. PAIN CLINIC PFS, CLERGY, PUBLIC HEALTH REFERRALS PFS REFERRAL NEEDED?NO CLERGY REFERRAL NEEDED?NO PUBLIC HEALTH REFERRAL NEEDED?NO WAS THE PROVIDER NOTIFIED OF ANY PERTINENT INFO?YES N/A HAS THE PATIENT BEEN EDUCATED REGARDING HIS/HER PLAN OF CARE?YES HAS THE PATIENT BEEN EDUCATED REGARDING PAIN, THE RISK FOR PAIN, THE IMPORTANCE OF EFFECTIVE PAIN MANAGEMENT, AND THE PAIN ASSESSMENT PROCESS?YES ADVANCE DIRECTIVE ADVANCE DIRECTIVE DISCUSSED WITH PATIENT:YES HCP-1. -STACEY [phone]. 2. MARIA DEL ROSARIO CRUZ- DAUGHTER [phone] HOSPITALIZATION/MAJOR DIAGNOSTIC PROCEDURE CHILDBIRTH X2 MS 1993 REVIEW OF SYSTEMS CONSTITUTIONAL: ANY RECENT FEVER NO . CHILLS NO . GASTROENTEROLOGY: BOWEL INCONTINENCE NO . ANY NEW CHANGE IN BOWEL CONTROL? NO . HISTORY OF UNUSUAL ABDOMINAL PAIN OR CRAMPING NOT MENTIONED NO . CONSTIPATION NO . GENITOURINARY: ANY NEW CHANGE IN BLADDER CONTROL? NO . IS THERE A CHANCE YOU COULD BE ? NO . URINARY INCONTINENCE NO . CARDIOLOGY: NEW CHEST PRESSURE NO . HISTORY OF CHEST PAIN,IRREGULAR HEART BEAT NOT MENTIONED NO . RESPIRATORY: COUGH NO . SHORTNESS OF BREATH NO . VITAL SIGNS WT 126.0 LBS, HT 66.5 IN, BMI 20.03 INDEX, BP 109/53 MM HG, HR 91 /MIN, RR 18 /MIN, TEMP 96.6 F, OXYGEN SAT % 98%, SAFE IN ENV? (Y/N) Y, NA INITIALS AW 1002, REVIEWED BY: KIET. EXAMINATION GENERAL EXAMINATION: GENERALALERT,NO DISTRESS . PSYCHAFFECT NORMAL . LUNGS:LUNG SOUNDS ARE CLEAR . HEART:HEART RATE REGULAR . MUSCULOSKELETAL:MILD WEAKNESS OVER RIGHT LEG.TREMOR WITH MST RIGHT LEG. NEUROLOGIC EXAM:NORMAL SENSATION LIGHT TOUCH BILAT LEGS. DIAGNOSTIC TESTS REVIEWEDMRI L/S SPINE-05/11/18. ASSESSMENTS INTERVERTEBRAL DISC DISORDER WITH RADICULOPATHY OF LUMBOSACRAL REGION - M51.17 (PRIMARY) TREATMENT INTERVERTEBRAL DISC DISORDER WITH RADICULOPATHY OF LUMBOSACRAL REGION NOTES: , L5-S1 LESI. PREVENTIVE MEDICINE PAIN CLINIC TEACHING: THE PATIENT HAS BEEN EDUCATED REGARDING PAIN, THE RISK FOR PAIN, THE IMPORTANCE OF EFFECTIVE PAIN MANAGEMENT, AND THE PAIN ASSESSMENT PROCESS. : PRE-PROCEDURE INSTRUCTIONS AND PLAN OF CARE REVIEWED WITH PT, PT ACKNOWLEDGED UNDERSTANDING., DS PROCEDURE CODES FA211 ESTABILISHED PATIENT [facility] FACILITY CHARGE DISPOSITION & COMMUNICATION FOLLOW UP POST (REASON: L5-S1 LESI) ELECTRONICALLY SIGNED BY JULIAN MENDOZA ON 05/04/2020 AT 01:08 PM EDT DISCLAIMER : THIS IS A VISIT SUMMARY EXTRACTED FROM THE [employer] CHART. IT IS NOT A COPY OF THE [employer] PROGRESS NOTE. CESAR
== END ==
LOC: M PAIN 10:00
PROVIDERS: ATTEND Nurse Practitioner Family
DX: M51.17 Intervertebral disc disorders with radiculopathy, lumbosacral region (principal); F17.210 Nicotine dependence, cigarettes, uncomplicated; G35 Multiple sclerosis; Z79.891 Long term (current) use of opiate analgesic; Z79.899 Other long term (current) drug therapy; Z88.8 Allergy status to other drugs, medicaments and biological substances

== ENCOUNTER → 2020-05-04 | Outpatient (REF) | payer MEDICARE | LOC: M SFHCWAGY 17:50 | PROVIDERS: ATTEND Nurse Practitioner Women's Health | DX: Z12.4 Encounter for screening for malignant neoplasm of cervix (principal); N95.8 Other specified menopausal and perimenopausal disorders ==

== ENCOUNTER → 2020-05-04 | Outpatient (CLI) | payer MEDICARE ==
--- NOTE | 2020-05-04 13:00 | REPMRS ---
Patient History The patient states she had a clinical breast exam in April 2020. Patient is postmenopausal and had previous chemotherapy at age 44. Family history of bladder cancer in maternal grandfather. 3D TOMOSYNTHESIS WAS PERFORMED. The [facility] lifetime risk for breast cancer is 7.2%. DAISY Suazo. Digital Woman Screen Mammo: May 04, 2020 - Exam #: [id number] Bilateral CC and MLO view(s) were taken. Technologist: Cecilia Marquez, Technologist Prior study comparison: February 14, 2019, bilateral digital woman screen mammo performed at [facility]. February 07, 2018, digital woman screen mammo performed at [facility]. FINDINGS: The breast tissue is heterogeneously dense. This may lower the sensitivity of mammography. There has been no change in the appearance of the mammogram from the prior studies. There is a moderate amount of residual fibroglandular tissue which is fairly symmetric. There is no interval development of dominant mass, areas of architectural distortion, or clustered microcalcification typical of malignancy. Assessment: BI-RADS/ACR category 1 mammogram. Negative Mammogram. Recommendation Routine screening mammogram in 1 year (for women over age 40). This mammogram was interpreted with the aid of an FDA-approved computer-aided dectection system. Electronically Signed By: Alen Landry MD 05/04/20 8219
== END ==
LOC: M WHC 09:59
PROVIDERS: ATTEND Nurse Practitioner Women's Health
DX: Z12.31 Encounter for screening mammogram for malignant neoplasm of breast (principal); Z78.0 Asymptomatic menopausal state; Z92.21 Personal history of antineoplastic chemotherapy

== ENCOUNTER → 2020-05-21 | Outpatient (CLI) | payer MEDICARE | LOC: M LABSMTC 11:52 | PROVIDERS: ATTEND Internal Medicine Gastroenterology | DX: Z11.59 Encounter for screening for other viral diseases (principal) | CPT/HCPCS: C9803; U0003 ==

== ENCOUNTER → 2020-06-17 | Outpatient (POV) | payer MEDICARE ==
[~2020-06-17] MED LIST changes: -ISOVUE-M 300 61% 15ML VIAL (Q9967) As Ordered ONE; +ISOVUE-M 300 61% 15ML VIAL As Ordered ONE; +ISOVUE-M 300 61% 15ML VIAL ONE; +LIDOCAINE 1% SDV 30ML VIAL As Ordered ONE; +LIDOCAINE 1% SDV 30ML VIAL ONE; -LIDOCAINE 1% SDV INJ 30 ML VIAL As Ordered ONE; +diazePAM 5 MG TAB ONE; -diphenhydrAMINE 25 MG CAP As Ordered ONE; -methylPREDNISolone SUSP 40 MG/ML (DEPO-medrol) VIAL (J1030) As Ordered ONE; +methylPREDNISolone SUSP 40MG/ML 1ML VIAL (DEPO MEDROL) As Ordered ONE; +methylPREDNISolone SUSP 40MG/ML 1ML VIAL (DEPO MEDROL) ONE
--- NOTE | 2020-08-11 11:03 | REP ---
PARTIAL LUMBAR SPINE SERIES: 2-VIEWS HISTORY: Lumbar epidural steroid injection for pain. 29 seconds of fluoroscopy time is reported. FINDINGS: A sequence of two [id number]-[id number] fluoroscopically obtained spot radiographs of the lumbar spine document needle position and contrast injection associated with injection procedure. MTDD
== END ==
LOC: M PAIN 09:45
PROVIDERS: ATTEND Anesthesiology
DX: M51.17 Intervertebral disc disorders with radiculopathy, lumbosacral region (principal)

== ENCOUNTER → 2020-09-20 | Outpatient (CLI) | payer MEDICARE ==
--- NOTE | 2020-09-22 04:13 | ECWPNPC ---
PATIENT NAME: MARY NAIR : 1960 GENDER: FEMALE VISIT DATE: 09/20/2020 DISCHARGE DATE: 09/20/20 1057 VISIT LOCKED DATE TIME: PHYSICIAN: CARTER ASTUDILLO PHYSICIAN PAGER NO: ACTIVE RESOURCE: CARTER ASTUDILLO REASON FOR APPOINTMENT 1. RIGHT LEG HISTORY OF PRESENT ILLNESS FALL RISK SCREENING: SCREENING :NO FALLS REPORTED IN THE LAST YEAR PAIN SCREENING: PATIENT HAS A COMPLAINT OF ACUTE OR CHRONIC PAIN :YES LOCATION OF PAIN:LOW BACK, RIGHT HIP, LEG(S) INTENSITY OF PAIN (SCALE OF 1 TO 10):4 WHAT DOES YOUR PAIN FEEL LIKE:ACHING, STABBING DURATION:CONTINOUS, CONSTANT PAIN IS INCREASED BY:ACTIVITIES PAIN IS DECREASED BY:OTHERS REST, NICOLE, IBUPROFEN TREATMENT/MEDICATIONS USED TO MANAGE PAIN:OTC PAIN RELIEVERS, NSAIDS LEVEL OF RELIEF FROM PAIN TREATMENTS IN THE PAST:75% PAIN HAS INTERFERED WITH THE FOLLOWING:WALKING ABILITY, HOUSEWORK NURSING NOTE: -. PAIN CENTER INTAKE QUESTIONS: DO YOU HAVE A HISTORY OF MRSA? :NO DO YOU TAKE A BLOOD THINNERS? :NO DO YOU HAVE ANY BLEEDING DISORDERS? :NO ANY NEW NUMBNESS OR WEAKNESS IN YOUR LEGS OR ARMS? :NO ANY PACEMAKER,DEFIBRILLATOR, OR DORSAL COLUMN STIMULATOR? :NO DO YOU HAVE ANY RASHES OR OPEN SORES? :NO ARE YOU ALLERGIC TO IV DYE? :NO ARE YOU DIABETIC? :NO ANY NEW PROBLEMS WITH YOUR MEDICATIONS? :NO HAVE YOU RECEIVED A VACCINE IN THE PAST 30 DAYS? :NO DO YOU PLAN TO RECEIVE A VACCINE IN THE NEXT 21 DAYS? :NO DO YOU NEED ANY PRESCRIPTION? :NO DO YOU TAKE ANY IMMUNOSUPPRESSIVE MEDICATIONS? :NO TECFIDERA FOR MS IS THERE A CHANCE YOU COULD BE ? :NO ARE YOU BREAST FEEDING? :NO HISTORY OF PRESENT ILLNESS: HERE FOR POST PROCEDURE F/U.HAD LESI ON 06/17/2020.REPORTING >50% IMPROVEMENT OVERALL WITH BACK PAIN AND RIGHT LEG PAIN FOR 2 MONTHS THEN PAIN HAS GRADUALLY RETURNED TO BASELINE.. CHIEF AREA OF PAIN IS RIGHT ANTERIOR LATERAL TIBIA/FIBULA PAIN.RATING PAIN VAS 6/10. PAIN THE PATIENT DESCRIBES THE PAIN... CURRENT MEDICATIONS TAKING ASACOL 800 MG TABLET DELAYED RELEASE 1 TABLET ORALLY TWICE A DAY TAKING BACLOFEN 20 MG TABLET 1 TABLET ORALLY DAILY TAKING DEPAKOTE ER 500 MG TABLET EXTENDED RELEASE 24 HOUR 1 TABLET ORALLY TWICE A DAY TAKING PROVIGIL 100 MG TABLET 1 TABLET ORALLY ONCE A DAY TAKING TECFIDERA 240 MG TABLET 1 TABLET ORALLY TWICE A DAY TAKING VITAMIN D-3 2000 UNITS CAPSULE 1 CAPSULE ORALLY ONCE A DAY TAKING VITAMIN E 1000 UNIT CAPSULE 1 CAPSULE ORALLY ONCE A DAY TAKING IBUPROFEN 600 MG TABLET 1 TABLET ORALLY TWICE DAILY TAKING PROLIA 60 MG/ML SOLUTION DIRECTED SUBCUTANEOUS Q SIX MONTHS TAKING CALCIUM 600 + D 600-400 MG-UNIT TABLET 1 TABLET ORALLY DAILY TAKING VOLTAREN 1 % GEL DIRECTED TRANSDERMAL APPLY SMALL AMOUNT TO AFFECTED AREA RIGHT ANKLE Q8H PRN PAIN TAKING MAXALT 10 MG TABLET 1 TABLET ORALLY DAILY NEEDED FOR MIGRAINES MAXIUM MIGRAINES A MONTH =2 TAKING NEURONTIN 300 MG CAPSULE 1 CAPSULE ORALLY BID NOT-TAKING CEPHALEXIN 500 MG CAPSULE 1 CAPSULE ORALLY EVERY 12 HRS NOT-TAKING PATANOL 0.1 % SOLUTION 1 DROP INTO BOTH EYES OPHTHALMIC TWICE A DAY NEEDED MEDICATION LIST REVIEWED AND RECONCILED WITH THE PATIENT PAST MEDICAL HISTORY MULTIPLE SCLEROSIS (DR. WHITING) SEIZURES- LAST SEIZURE WAS 30 YEARS AGO ULCERATIVE COLITIS (DR. GRANDA) CARPAL TUNNEL OSTEOPOROSIS; STARTED PROLIA 12/29 SMOKER NON-TOXIC MULTINODULAR GOITER STABLE ON US 2008, 2013, 09/28 BL CARPAL TUNNEL - NO SURGERY ECHO 2004 MILD GLOBAL HYPOKINESIS LV EF 50% RT SCIATICA 2018 MINI BOWEL PERFORATION 2002 LOW BACK PAIN RIGHT LEG PAIN ALLERGIES FLAGYL: RED RASH - ALLERGY SURGICAL HISTORY TONSILLECTOMY 9 YEARS OLD ADENOIDECTOMY 9 YEARS OLD COLONSCOPY//[place] 04/07/2010,03/2014 & 2015 COLPOSCOPY CONIZATION FAMILY HISTORY FATHER: 71 YRS, POLYMYALGIA, DIAGNOSED WITH UNSPECIFIED HEART DISEASE MOTHER: ALIVE 86 YRS, HTN, HIGH CHOLESTEROL, CHOLECYSTECTOMY, HYPERTENSION SIBLINGS: ALIVE 57 YRS DAUGHTER(S): ALIVE 27 YRS MATERNAL GRAND FATHER: BLADDER CANCER AT AGE 80 MATERNAL GRAND MOTHER: , HEART DISEASE, CHF, BYPASS SURGERY MATERNAL UNCLE: , COMPLICATIONS OF IDDM, CHF 2 SISTER(S) - HEALTHY. 2DAUGHTER(S) - HEALTHY. DENIES BREAST, COLON OR OVARIAN CANCERS.\\\\N2\\\\\\\\\\\\\ FATHER FROM [place] DIE[place]. SOCIAL HISTORY GENERAL: TOBACCO USE ARE YOU A:CURRENT SMOKER ARE YOU INTERESTED IN QUITTING?NOT READY TO QUIT PT DOES NOT WANT SMOKING CESSATION HANDOUT COUNSELED THE PATIENT ON SMOKING EFFECTS, EDUCATION [id number]/09/2020 HOW MANY CIGARETTES A DAY DO YOU SMOKE?6-10 HOW SOON AFTER YOU WAKE UP DO YOU SMOKE YOUR FIRST CIGARETTE?AFTER 60 MIN HOW OFTEN DO YOU SMOKE CIGARETTES?EVERY DAY PATIENT COUNSELED ON THE DANGERS OF TOBACCO USE AND URGED TO QUIT:05/04/2020 LATEX QUESTIONNAIRE LATEX ALLERGY : HAVE YOU EVER DEVELOPED ANY TYPE OF REACTION AFTER HANDLING LATEX PRODUCTS SUCH RUBBER GLOVES, CONDOMS, DIAPHRAGMS, BALLOONS, SOCKS, OR UNDERWEAR?NO LATEX ALLERGY : HAVE YOU EVER DEVELOPED ANY TYPE OF REACTION DURING OR AFTER DENTAL APPOINTMENT, VAGINAL/RECTAL EXAMINATION, SURGICAL PROCEDURE, OR ANY OTHER EXPOSURE?NO LATEX RISK : HAVE YOU EVER HAD ANY DIFFICULTY BREATHING OR HIVES AFTER EATING OR HANDLING ANY FRUITS, OR VEGETABLES; SUCH KIWI, BANANAS, STONE FRUITS, OR CHESTNUTSNO LATEX RISK : DO YOU HAVE A PREVIOUS PERSONAL HISTORY OF MORE THAN NINE SURGERIES, SPINA BIFIDA, OR REPEATED CATHERIZATIONS? NO LATEX RISK : ARE YOU FREQUENTLY EXPOSED TO LATEX PRODUCTS IN YOUR OCCUPATION?NO DATE ASKED : 09/20/2020 ALCOHOL SCREENING DID YOU HAVE A DRINK CONTAINING ALCOHOL IN THE PAST YEAR?NO POINTS0 INTERPRETATIONNEGATIVE RECREATIONAL DRUG USE DRUG USE?NO CAFFEINE NONE. SEXUAL HX HAD SEX IN THE LAST 12 MONTHS (VAGINAL, ORAL, OR ANAL)?YES WITHMEN ONLY LMP:POST MENOPAUSE HAVE YOU EVER HAD AN STD?NO HIV / HEP-C SCREENING HIV TEST OFFERED TO PATIENT:YES DATE OFFERED:02/14/2019 TEST ACCEPTED:NO REASON:PATIENT DECLINED BROCHURE PROVIDED TO PATIENTYES JEWISH [id number] [employer]AGE [place]AN. 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 DIET: NO HX EATING DISORDERS. EXERCISE: NO REGULAR EXERCISE. MARITAL STATUS: . OTHERS AT HOME: SPOUSE, YOUNGEST DAUGHTER. PAIN CLINIC PFS, CLERGY, PUBLIC HEALTH REFERRALS PFS REFERRAL NEEDED?NO CLERGY REFERRAL NEEDED?NO PUBLIC HEALTH REFERRAL NEEDED?NO WAS THE PROVIDER NOTIFIED OF ANY PERTINENT INFO?YES N/A HAS THE PATIENT BEEN EDUCATED REGARDING HIS/HER PLAN OF CARE?YES HAS THE PATIENT BEEN EDUCATED REGARDING PAIN, THE RISK FOR PAIN, THE IMPORTANCE OF EFFECTIVE PAIN MANAGEMENT, AND THE PAIN ASSESSMENT PROCESS?YES ADVANCE DIRECTIVE ADVANCE DIRECTIVE DISCUSSED WITH PATIENT:YES HCP-1. -STACEY [phone]. 2. MARIA DEL ROSARIO CRUZ- DAUGHTER [phone] HOSPITALIZATION/MAJOR DIAGNOSTIC PROCEDURE CHILDBIRTH X2 MS 1992 REVIEW OF SYSTEMS CONSTITUTIONAL: ANY RECENT FEVER NO . CHILLS NO . WEIGHT CHANGE OF UNKNOWN REASONS NO . GASTROENTEROLOGY: NEW UNEXPLAINABLE CHANGES IN BOWEL CONTROL NO . CONSTIPATION NO . GENITOURINARY: ANY NEW CHANGE IN BLADDER CONTROL? NO . NEUROLOGY: NEW ONSET DIZZINESS OR NEUROLOGICAL CHANGES NOT MENTIONED NO . NEW NUMBNESS OR PAIN PATTERNS NOT MENTIONED AND PERTINENT TO TODAY'S VISIT NO . CARDIOLOGY: NEW CHEST PRESSURE NO . NEW CHEST PAIN NO . RESPIRATORY: UNEXPLAINABLE COUGH NO . NEW SHORTNESS OF BREATH NO . VITAL SIGNS WT 131 LBS, HT 66.5 IN, BMI 20.82 INDEX, BP 98/50 MM HG, HR 81 /MIN, RR 18 /MIN, TEMP 96.4 F, OXYGEN SAT % 98%, NA INITIALS SC 10:12, REVIEWED BY: EM. EXAMINATION GENERAL EXAMINATION: GENERALALERT,NO DISTRESS . PSYCHAFFECT NORMAL . LUNGS:LUNG SOUNDS ARE CLEAR . HEART:HEART RATE REGULAR . MUSCULOSKELETAL:MILD WEAKNESS OVER RIGHT LEG.TREMOR WITH MST RIGHT LEG. NEUROLOGIC EXAM:NORMAL SENSATION LIGHT TOUCH BILAT LEGS. DIAGNOSTIC TESTS REVIEWEDMRI L/S SPINE-05/11/18. ASSESSMENTS OTHER CHRONIC POSTPROCEDURAL PAIN - G89.28 (PRIMARY) LUMBAR RADICULAR SYNDROME - M54.16 TREATMENT OTHER CHRONIC POSTPROCEDURAL PAIN PAIN PROCEDURE LOGDATE OF PROCEDURE06/17/20PROCEDURE:LUMBAR EPIDURAL L5/F4PFLVPS OF PRE SEDATEVALIUM 5MGRESULT:MARKED REDUCTION IN PAIN POST PROCEDURE X2 MONTHS NOTES: L5-S1 LESI/MED HOLD INSTRUCTIONS WERE GIVEN TO DONN LAN RN TO SEND [facility]UR[facility], DR. BROWN REQUEST FOR CLEARANCE TO STAY ON TEKFIDERA DURING EPIDURAL STEROID INJECTION DUE TO ITS IMMUNE SUPPRESSIVE PROPERTIES. PATIENT STATES SHE NEEDS TO STAY ON THIS MEDICATION DESPITE KNOWING THE POTENTIAL INCREASED RISK OF INFECTION WITH USE OF STEROIDS POST PROCEDURE. LETTER WAS PREPARED REQUESTED AND GIVEN TO L SPINACI, INTENSIVE CARE UNIT REGISTERED NURSE TO TYPE AND FAX TO DR CLAYTON. EM. PROCEDURE CODES FA211 ESTABILISHED PATIENT [facility] CHARGE DISPOSITION & COMMUNICATION FOLLOW UP POST PROCEDURE (REASON: L5-S1 LESI/MED HOLD) ELECTRONICALLY SIGNED BY JULIAN MENDOZA ON 09/21/2020 AT 01:28 PM EST DISCLAIMER : THIS IS A VISIT SUMMARY EXTRACTED FROM THE [employer] CHART. IT IS NOT A COPY OF THE [employer] PROGRESS NOTE. CESAR
== END ==
LOC: M PAIN 10:00
PROVIDERS: ATTEND Nurse Practitioner Family
DX: G89.28 Other chronic postprocedural pain (principal); M54.16 Radiculopathy, lumbar region; G20 Parkinson's disease; K51.90 Ulcerative colitis, unspecified, without complications; M81.0 Age-related osteoporosis without current pathological fracture; E04.1 Nontoxic single thyroid nodule; F17.210 Nicotine dependence, cigarettes, uncomplicated; Z79.899 Other long term (current) drug therapy; Z88.1 Allergy status to other antibiotic agents

== ENCOUNTER → 2020-11-17 | Outpatient (CLI) | payer MEDICARE | LOC: M LABSMTC 10:10 | PROVIDERS: ATTEND Anesthesiology | DX: Z20.822 Contact with and (suspected) exposure to COVID-19 (principal) ==

== ENCOUNTER → 2020-11-22 | Outpatient (CLI) | payer MEDICARE ==
[~2020-11-22] MED LIST changes: -ISOVUE-M 300 61% 15ML VIAL ONE; -LIDOCAINE 1% SDV 30ML VIAL ONE; +NORCO, ANEXSIA 5/325MG TABLET (HYDROcodone/ACETAMINOPHEN) As Ordered ONE; -diazePAM 5 MG TAB As Ordered ONE; -diazePAM 5 MG TAB ONE; +diazePAM 5MG TABLET As Ordered ONE; +diphenhydrAMINE 25MG CAP As Ordered ONE; -methylPREDNISolone SUSP 40MG/ML 1ML VIAL (DEPO MEDROL) ONE
--- NOTE | 2020-11-22 13:30 | REP ---
INDICATION: PAIN. COMPARISON: 06/17/2020. TECHNIQUE: Three C arm views lower lumbar spine performed. FINDINGS: A needle is seen at the L4-5 level. A small amount of contrast was injected. IMPRESSION: 40 seconds of fluoroscopy time was utilized. <Electronically signed by Alen Landry > 11/22/20 8300
--- NOTE | 2020-11-24 02:29 | ECWPNPC ---
PATIENT NAME: MARY NAIR : 1960 GENDER: FEMALE VISIT DATE: 11/22/2020 DISCHARGE DATE: 11/22/20 1338 VISIT LOCKED DATE TIME: PHYSICIAN: BEV BARBOZA MD PHYSICIAN PAGER NO: ACTIVE RESOURCE: BEV BARBOZA MD REASON FOR APPOINTMENT 1. LUMBAR EPIDURAL STEROID INJECTION HISTORY OF PRESENT ILLNESS GENERAL: -. FALL RISK SCREENING: SCREENING :NO FALLS REPORTED IN THE LAST YEAR PAIN SCREENING: PATIENT HAS A COMPLAINT OF ACUTE OR CHRONIC PAIN :YES LOCATION OF PAIN:LOW BACK, RIGHT HIP, LEG(S) INTENSITY OF PAIN (SCALE OF 1 TO 10):6 LE BACK: 3-4 WHAT DOES YOUR PAIN FEEL LIKE:STABBING, SORE DURATION:CONTINOUS, CONSTANT PATIENT REPORTS, "PAIN WORSENS THE DAY PROGRESSES." PAIN IS INCREASED BY:ACTIVITIES, PROLONGED STANDING PAIN IS DECREASED BY:OTHERS REST, NICOLE, IBUPROFEN TREATMENT/MEDICATIONS USED TO MANAGE PAIN:OTC PAIN RELIEVERS, NSAIDS LEVEL OF RELIEF FROM PAIN TREATMENTS IN THE PAST:75% PAIN HAS INTERFERED WITH THE FOLLOWING:WALKING ABILITY, HOUSEWORK PLAN/GOALS/TREATMENT/INTERVENTION/FOLLOW UP:SEE PLAN PAIN CENTER INTAKE QUESTIONS: DO YOU HAVE A HISTORY OF MRSA? :NO DO YOU TAKE A BLOOD THINNERS? :NO DO YOU HAVE ANY BLEEDING DISORDERS? :NO ANY NEW NUMBNESS OR WEAKNESS IN YOUR LEGS OR ARMS? :NO ANY PACEMAKER,DEFIBRILLATOR, OR DORSAL COLUMN STIMULATOR? :NO DO YOU HAVE ANY RASHES OR OPEN SORES? :NO ARE YOU ALLERGIC TO IV DYE? :NO ARE YOU DIABETIC? :NO ANY NEW PROBLEMS WITH YOUR MEDICATIONS? :NO HAVE YOU RECEIVED A VACCINE IN THE PAST 30 DAYS? :NO DO YOU PLAN TO RECEIVE A VACCINE IN THE NEXT 21 DAYS? :NO DO YOU NEED ANY PRESCRIPTION? :NO DO YOU TAKE ANY IMMUNOSUPPRESSIVE MEDICATIONS? :NO ANY HISTORY OF SEIZURES? :YES LAST SEIZURE 30 YEARS AGO ANY HISTORY OF CARDIAC ISSUES OR EVENTS? :NO DO YOU HAVE SLEEP APNEA? :NO ANY RECENT HEAD INJURY? :NO DO YOU HAVE ANY NEW INFECTIONS? :NO IS THERE A CHANCE YOU COULD BE ? :NO ARE YOU BREAST FEEDING? :NO WHEN DID YOU LAST EAT? : -11/22 0500 WHEN DID YOU LAST DRINK? : -11/22 0800 WHAT DID YOU LAST DRINK? : -WATER NAME OF PERSON DRIVING YOU HOME? : STACEY () DO YOU HAVE ANY OTHER QUESTIONS OR CONCERNS? : NO CURRENT MEDICATIONS TAKING ASACOL 800 MG TABLET DELAYED RELEASE 1 TABLET ORALLY TWICE A DAY TAKING BACLOFEN 20 MG TABLET 1 TABLET ORALLY DAILY TAKING DEPAKOTE ER 500 MG TABLET EXTENDED RELEASE 24 HOUR 1 TABLET ORALLY TWICE A DAY, NOTES: 11/22 529 TAKING PROVIGIL 100 MG TABLET 1 TABLET ORALLY ONCE A DAY, NOTES: 11/22 529 TAKING TECFIDERA 240 MG TABLET 1 TABLET ORALLY TWICE A DAY, NOTES: 11/22 529 TAKING VITAMIN D-3 2000 UNITS CAPSULE 1 CAPSULE ORALLY ONCE A DAY TAKING VITAMIN E 1000 UNIT CAPSULE 1 CAPSULE ORALLY ONCE A DAY TAKING IBUPROFEN 600 MG TABLET 1 TABLET ORALLY DAILY PRN TAKING PROLIA 60 MG/ML SOLUTION DIRECTED SUBCUTANEOUS Q SIX MONTHS TAKING CALCIUM 600 + D 600-400 MG-UNIT TABLET 1 TABLET ORALLY DAILY TAKING VOLTAREN 1 % GEL DIRECTED TRANSDERMAL APPLY SMALL AMOUNT TO AFFECTED AREA RIGHT ANKLE Q8H PRN PAIN TAKING MAXALT 10 MG TABLET 1 TABLET ORALLY DAILY NEEDED FOR MIGRAINES MAXIUM MIGRAINES A MONTH =2 TAKING NEURONTIN 300 MG CAPSULE 1 CAPSULE ORALLY BID NOT-TAKING CEPHALEXIN 500 MG CAPSULE 1 CAPSULE ORALLY EVERY 12 HRS NOT-TAKING PATANOL 0.1 % SOLUTION 1 DROP INTO BOTH EYES OPHTHALMIC TWICE A DAY NEEDED MEDICATION LIST REVIEWED AND RECONCILED WITH THE PATIENT PAST MEDICAL HISTORY MULTIPLE SCLEROSIS (DR. WHITING) SEIZURES- LAST SEIZURE WAS 30 YEARS AGO ULCERATIVE COLITIS (DR. GRANDA) CARPAL TUNNEL OSTEOPOROSIS; STARTED PROLIA 12/29 SMOKER NON-TOXIC MULTINODULAR GOITER STABLE ON US 2008, 2013, 09/28 BL CARPAL TUNNEL - NO SURGERY ECHO 2004 MILD GLOBAL HYPOKINESIS LV EF 50% RT SCIATICA 2018 MINI BOWEL PERFORATION 2002 LOW BACK PAIN RIGHT LEG PAIN ALLERGIES FLAGYL: RED RASH - ALLERGY SURGICAL HISTORY TONSILLECTOMY 9 YEARS OLD ADENOIDECTOMY 9 YEARS OLD COLONSCOPY//NAN 04/07/2010,03/2014 & 2016 COLPOSCOPY CONIZATION FAMILY HISTORY FATHER: 71 YRS, POLYMYALGIA, DIAGNOSED WITH UNSPECIFIED HEART DISEASE MOTHER: ALIVE 87 YRS, HTN, HIGH CHOLESTEROL, CHOLECYSTECTOMY, HYPERTENSION SIBLINGS: ALIVE 58 YRS DAUGHTER(S): ALIVE 28 YRS MATERNAL GRAND FATHER: BLADDER CANCER AT AGE 80 MATERNAL GRAND MOTHER: , HEART DISEASE, CHF, BYPASS SURGERY MATERNAL UNCLE: , COMPLICATIONS OF IDDM, CHF 2 SISTER(S) - HEALTHY. 2DAUGHTER(S) - HEALTHY. DENIES BREAST, COLON OR OVARIAN CANCERS.\\\\\\\\N2\\\\\\\\\\\\\\\\\\\\\\\\\\\\ FATHER FROM [place]. SOCIAL HISTORY GENERAL: TOBACCO USE ARE YOU A:CURRENT SMOKER ARE YOU INTERESTED IN QUITTING?NOT READY TO QUIT PT DOES NOT WANT SMOKING CESSATION HANDOUT COUNSELED THE PATIENT ON SMOKING EFFECTS, EDUCATION [id number]/08/2021 HOW MANY CIGARETTES A DAY DO YOU SMOKE?6-10 HOW SOON AFTER YOU WAKE UP DO YOU SMOKE YOUR FIRST CIGARETTE?AFTER 60 MIN HOW OFTEN DO YOU SMOKE CIGARETTES?EVERY DAY PATIENT COUNSELED ON THE DANGERS OF TOBACCO USE AND URGED TO QUIT:11/19/2020 VAPORNO E-CIGARETTENO LATEX QUESTIONNAIRE LATEX ALLERGY : HAVE YOU EVER DEVELOPED ANY TYPE OF REACTION AFTER HANDLING LATEX PRODUCTS SUCH RUBBER GLOVES, CONDOMS, DIAPHRAGMS, BALLOONS, SOCKS, OR UNDERWEAR?NO LATEX ALLERGY : HAVE YOU EVER DEVELOPED ANY TYPE OF REACTION DURING OR AFTER DENTAL APPOINTMENT, VAGINAL/RECTAL EXAMINATION, SURGICAL PROCEDURE, OR ANY OTHER EXPOSURE?NO DATE ASKED : 09/20/2020 LATEX RISK : HAVE YOU EVER HAD ANY DIFFICULTY BREATHING OR HIVES AFTER EATING OR HANDLING ANY FRUITS, OR VEGETABLES; SUCH KIWI, BANANAS, STONE FRUITS, OR CHESTNUTSNO LATEX RISK : DO YOU HAVE A PREVIOUS PERSONAL HISTORY OF MORE THAN NINE SURGERIES, SPINA BIFIDA, OR REPEATED CATHERIZATIONS? NO LATEX RISK : ARE YOU FREQUENTLY EXPOSED TO LATEX PRODUCTS IN YOUR OCCUPATION?NO LUNG CANCER SCREENING SMOKING STATUS:CURRENT SMOKER IS THE PATIENT BETWEEN THE AGE OF 55 AND 77?YES HAS THE PATIENT EVER BEEN DIAGNOSED WITH LUNG CANCER?NO ALCOHOL SCREENING DID YOU HAVE A DRINK CONTAINING ALCOHOL IN THE PAST YEAR?NO POINTS0 INTERPRETATIONNEGATIVE RECREATIONAL DRUG USE DRUG USE?NO CAFFEINE NONE. SEXUAL HX HAD SEX IN THE LAST 12 MONTHS (VAGINAL, ORAL, OR ANAL)?YES WITHMEN ONLY LMP:POST MENOPAUSE HAVE YOU EVER HAD AN STD?NO HIV / HEP-C SCREENING HIV TEST OFFERED TO PATIENT:YES DATE OFFERED:02/14/2019 TEST ACCEPTED:NO REASON:PATIENT DECLINED BROCHURE PROVIDED TO PATIENTYES [employer] [id number]. 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 DIET: NO HX EATING DISORDERS. EXERCISE: NO REGULAR EXERCISE. MARITAL STATUS: . OTHERS AT HOME: SPOUSE, YOUNGEST DAUGHTER. PAIN CLINIC PFS, CLERGY, PUBLIC HEALTH REFERRALS PFS REFERRAL NEEDED?NO CLERGY REFERRAL NEEDED?NO PUBLIC HEALTH REFERRAL NEEDED?NO WAS THE PROVIDER NOTIFIED OF ANY PERTINENT INFO?YES N/A HAS THE PATIENT BEEN EDUCATED REGARDING HIS/HER PLAN OF CARE?YES HAS THE PATIENT BEEN EDUCATED REGARDING PAIN, THE RISK FOR PAIN, THE IMPORTANCE OF EFFECTIVE PAIN MANAGEMENT, AND THE PAIN ASSESSMENT PROCESS?YES ADVANCE DIRECTIVE ADVANCE DIRECTIVE DISCUSSED WITH PATIENT:YES HCP: 1. -STACEY [phone] 2. MARIA DEL ROSARIO CRUZ- DAUGHTER [phone] HOSPITALIZATION/MAJOR DIAGNOSTIC PROCEDURE CHILDBIRTH X2 MS 1993 VITAL SIGNS WT 131.8 LBS, HT 66.5 IN, BMI 20.95 INDEX, BP 134/63 MM HG, HR 73 /MIN, RR 18 /MIN, TEMP 98.1 F, OXYGEN SAT % 99%, NA INITIALS AW 1100. EXAMINATION GENERAL EXAMINATION: THE PATIENT IS ALERT, ORIENTED TIMES THREE AND COOPERATIVE. LUNGS ARE CLEAR TO AUSCULTATION. HEART SHOWS REGULAR RHYTHM, NO MURMURS AND NO GALLOPS. ASSESSMENTS INTERVERTEBRAL DISC DISORDER WITH RADICULOPATHY OF LUMBOSACRAL REGION - M51.17 (PRIMARY) TREATMENT INTERVERTEBRAL DISC DISORDER WITH RADICULOPATHY OF LUMBOSACRAL REGION [facility] FLUORO GUIDE SPINE INJECTION (PAIN)[id number] MEDICATION: NORCO TABLET 5MG/325MG ORALLY (HYDROCODONE/ACETAMINOPHEN)INGRID SOLORIO 11/22/2020 11:33:18 AM > LOT# [id number] EXPIRATION 01/2022. AILEEN LOPEZ 11/22/2020 11:35:57 AM > VERIFIED INGRID SOLORIO 11/22/2020 11:37:27 AM > ADMINISTERED MEDICATION: VALIUM TAB 5MG ORALLY (DIAZEPAM)INGRID SOLORIO 11/22/2020 11:34:02 AM > LOT# [id number]. EXPIRATION 06/01. AILEEN LOPEZ 11/22/2020 11:36:15 AM > VERIFIED INGRID SOLORIO 11/22/2020 11:38:01 AM > ADMINISTERED MEDICATION: (PAIN) BENADRYL TAB 25MG ORALLY (DIPHENHYDRAMINE)INGRID OSLORIO 11/22/2020 11:34:44 AM > LOT# [id number]. EXPIRATION 03/2023. AILEEN LOPEZ 11/22/2020 11:36:35 AM > VERIFIED INGRID SOLORIO 11/22/2020 11:38:34 AM > ADMINISTERED NOTES: DISCHARGE INSTRUCTIONS REVIEWED WITH PATIENT AND SHE VERBALIZED UNDERSTANDING. OTHERS NOTES: 11/19/20 1700 PAT EVE LARES RN. PROCEDURES PAIN NURSING RECORD PROCEDURE IN ROOM 1248, PHYSICIAN IN ROOM 1252, START 1258, FINISH 1306, PHYSICIAN OUT OF ROOM 1311, OUT OF ROOM 1315, ECG NORMAL SINUS, PATIENT SHIELDED YES, SAFETY STRAP YES, PREP BETADINE BY Yoan SOLORIO RN, DRESSING TEGADERM BY DR BARBOZA LOC: 1. ALERT, ORIENTED RESP: INGRID SOLORIO 11/22/2020 12:53:56 PM > , 1. ALERT, ORIENTED COLOR: INGRID SOLORIO 11/22/2020 12:54:01 PM > , 1. PINK SKIN: INGRID SOLORIO 11/22/2020 12:54:43 PM > , 1. WARM, DRY POSITION: INGRID SOLORIO 11/22/2020 12:54:50 PM > , 1. PRONE VITALS: INGRID SOLORIO 11/22/2020 12:50:02 PM > 119/66 HR 64 16 100% R/A , INGRID SOLORIO 11/22/2020 1:05:23 PM > 117/65 HR 60 16 99% R/A , INGRID SOLORIO 11/22/2020 1:30:18 PM > 121/67 HR 75 16 94% R/A D/C V/S DISCHARGE: POST PAIN 0, DRESSING SITE DRY AND INTACT PATIENT NOTED BY DR BARBOZA TO HAVE A SMALL AMOUNT OF BLEEDING FROM INJECTION SITE. DRESSING REINFORCED WITH MEDIUM TEGADERM PER DR BARBOZA., IV N/A, GAIT STEADY AMBULATED WITH PATIENT TO CAR SHE FELT" A LITTLE WHOOZY". GAIT WAS STEADY AND DISCHARGE INSTRUCTIONS REVIEWED WITH PATIENT'S ., TEACHING COMPLETED, PATIENT ACKNOWLEDGES UNDERSTANDING YES, PATIENT DISCHARGED AT 1336 PRE PROCEDURE DIAGNOSIS LUMBOSACRAL DISC DISORDER WITH RADICULOPATHY POST PROCEDURE DIAGNOSIS LUMBOSACRAL DISC DISORDER WITH RADICULOPATHY PROCEDURE LUMBAR EPIDURAL STEROID INJECTION UNDER FLUOROSCOPIC GUIDANCE SURGEON DR. BEV BARBOZA CLAMP OPERATOR NONE ANESTHESIA LOCAL PRE PROCEDURE NOTE THE PATIENT HAS A HISTORY OF CHRONIC LOW BACK PAIN. I EVALUATED THE PATIENT AND REVIEWED THE CHART. I WENT OVER THE RISKS, ALTERNATIVES, AND BENEFITS ASSOCIATED WITH THIS PROCEDURE. THE PATIENT WOULD LIKE TO PROCEED AND GIVE CONSENT TO PERFORMED THE PROCEDURE. THE PATIENT DENIES UNEXPLAINABLE WEIGHT LOSS, FEVER, CHILLS, OR NEW CHANGES IN URINARY OR BOWEL CONTROL. THE PATIENT IS COVID-19 NEGATIVE DESCRIPTION OF PROCEDURE THE PATIENT WAS BROUGHT TO THE PROCEDURE ROOM AND PLACED IN THE PRONE POSITION. THE LUMBOSACRAL AREA WAS CLEANED WITH BETADINE SOLUTION AND DRAPED ASEPTICALLY. THE PROCEDURE WAS DONE UNDER STERILE CONDITIONS. A TIMEOUT WAS PERFORMED WHERE LATERALITY AND THE SITE OF THE PROCEDURE WERE CHECKED AND CONFIRMED WITH EVERYONE IN THE ROOM. UNDER FLUOROSCOPIC GUIDANCE, THE TARGET POINT WAS SELECTED AT THE INTERLAMINAR LEVEL OF L5-S1. I CONFIRMED AGAIN WITH EVERYONE IN THE ROOM THE LATERALITY AND SITE OF THE TARGET AT 1258. LIDOCAINE WAS USED TO NUMB THE SKIN AND THE SUBCUTANEOUS TISSUE BELOW IT. EPIDURAL TUOHY NEEDLE, 17-GAUGE, WAS ADVANCED UNDER FLUOROSCOPIC GUIDANCE AND FOLLOWING PATIENT FEEDBACK UNTIL THE EPIDURAL SPACE WAS REACHED 6 CM DEEP INTO THE SKIN BY THE LOSS OF RESISTANCE TECHNIQUE. ISOVUE-M DYE 30%, 0.25 ML, WAS INJECTED SHOWING ADEQUATE SPREAD OF THE DYE. THEN, A SOLUTION OF 3 ML OF NORMAL SALINE WITH DEPO-MEDROL 80 MG WAS INJECTED SLOWLY FOLLOWING PATIENT FEEDBACK. THE MEDICATIONS WERE VERIFIED WITH THE NURSE. THERE WAS NO EVIDENCE OF BLOOD, PARESTHESIA OR CEREBROSPINAL FLUID DURING THE PROCEDURE. THE PATIENT WAS SENT TO THE RECOVERY ROOM. THE PATIENT WAS MOVING THE EXTREMITIES AND DOING WELL. THERE WERE NO COMPLICATIONS DURING THE PROCEDURE. ESTIMATED BLOOD LOSS WAS LESS THAN 5 ML. FLUOROSCOPY TIME WAS 39 SECONDS POST PROCEDURE NOTE THE PATIENT WILL BE SEEN IN A FOLLOW UP IN THE NEXT FEW WEEKS. I AM LOOKING FOR LONG LASTING RELIEF FOR THE PATIENT WITH THIS INTERVENTION. INSTRUCTIONS WERE GIVEN, QUESTIONS WERE ANSWERED, AND THE PATIENT EXPRESSED UNDERSTANDING AND AGREES WITH THE PLAN. I, MARCIA GARCIA, DOCUMENTED THE ABOVE INFORMATION ACTING A SCRIBE FOR DR. BARBOZA. I HAVE REVIEWED THE ABOVE DOCUMENT, WRITTEN BY MARCIA GARCIA, BLOOD AND PLASMA LABORATORY ASSISTANT, AND I VERIFY THAT IT IS ACCURATE PROCEDURE CODES 46649 LUMBAR/SACRAL W/ IMAGING DISPOSITION & COMMUNICATION FOLLOW UP FOLLOW UP WITH FUR EXAMINER (REASON: POST LUMBAR EPIDURAL STEROID INJECTION) ELECTRONICALLY SIGNED BY BEV BARBOZA MD, MD ON 11/23/2020 AT 12:45 PM EST DISCLAIMER : THIS IS A VISIT SUMMARY EXTRACTED FROM THE [employer] CHART. IT IS NOT A COPY OF THE [employer] PROGRESS NOTE. CESAR
== END ==
LOC: M PAIN 10:30
PROVIDERS: ATTEND Anesthesiology
DX: M51.17 Intervertebral disc disorders with radiculopathy, lumbosacral region (principal); G35 Multiple sclerosis; M81.0 Age-related osteoporosis without current pathological fracture; F17.210 Nicotine dependence, cigarettes, uncomplicated; Z79.899 Other long term (current) drug therapy; Z88.1 Allergy status to other antibiotic agents
CPT/HCPCS: 62323; J1030; Q9967

== ENCOUNTER → 2020-12-06 | Outpatient (CLI) | payer MEDICARE ==
--- NOTE | 2020-12-08 01:04 | ECWPNPC ---
PATIENT NAME: MARY NAIR : 1960 GENDER: FEMALE VISIT DATE: 12/06/2020 DISCHARGE DATE: 12/06/20 1053 VISIT LOCKED DATE TIME: PHYSICIAN: CARTER ASTUDILLO PHYSICIAN PAGER NO: ACTIVE RESOURCE: ACRTER ASTUDILLO REASON FOR APPOINTMENT 1. POST LUMBAR EPIDURAL STEROID INJECTION HISTORY OF PRESENT ILLNESS GENERAL: -. FALL RISK SCREENING: SCREENING :NO FALLS REPORTED IN THE LAST YEAR PAIN SCREENING: PATIENT HAS A COMPLAINT OF ACUTE OR CHRONIC PAIN :YES LOCATION OF PAIN:LEG(S) INTENSITY OF PAIN (SCALE OF 1 TO 10):3 WHAT DOES YOUR PAIN FEEL LIKE:ACHING DURATION:INTERMITTENT END OF THE DAY PAIN IS INCREASED BY:ACTIVITIES PAIN IS DECREASED BY:OTHERS REST TREATMENT/MEDICATIONS USED TO MANAGE PAIN:OTC PAIN RELIEVERS, NSAIDS LEVEL OF RELIEF FROM PAIN TREATMENTS IN THE PAST:75% PAIN HAS INTERFERED WITH THE FOLLOWING: NO NURSING NOTE: -. PAIN CENTER INTAKE QUESTIONS: DO YOU HAVE A HISTORY OF MRSA? :NO DO YOU TAKE A BLOOD THINNERS? :NO DO YOU HAVE ANY BLEEDING DISORDERS? :NO ANY NEW NUMBNESS OR WEAKNESS IN YOUR LEGS OR ARMS? :NO ANY PACEMAKER,DEFIBRILLATOR, OR DORSAL COLUMN STIMULATOR? :NO DO YOU HAVE ANY RASHES OR OPEN SORES? :NO ARE YOU ALLERGIC TO IV DYE? :NO ARE YOU DIABETIC? :NO ANY NEW PROBLEMS WITH YOUR MEDICATIONS? :NO HAVE YOU RECEIVED A VACCINE IN THE PAST 30 DAYS? :NO DO YOU PLAN TO RECEIVE A VACCINE IN THE NEXT 21 DAYS? :NO DO YOU NEED ANY PRESCRIPTION? :NO DO YOU TAKE ANY IMMUNOSUPPRESSIVE MEDICATIONS? :YES TECFIDERA FOR MS IS THERE A CHANCE YOU COULD BE ? :NO ARE YOU BREAST FEEDING? :NO HISTORY OF PRESENT ILLNESS: HERE FOR POST PROCEDURE F/U.HAD LESI ON 11/22/2020.REPORTING >50% IMPROVEMENT OVERALL WITH BACK PAIN AND RIGHT LEG PAIN.CONTINUES TO HAVE RESIDUAL RIGHT ANTERIOR LATERAL TIBIA/FIBULA PAIN.RATING PAIN VAS 3/10. HERE FOR POST PROCEDURE F/U.HAD LESI ON 06/17/2020.REPORTING >50% IMPROVEMENT OVERALL WITH BACK PAIN AND RIGHT LEG PAIN FOR 2 MONTHS THEN PAIN HAS GRADUALLY RETURNED TO BASELINE.. CHIEF AREA OF PAIN IS RIGHT ANTERIOR LATERAL TIBIA/FIBULA PAIN.RATING PAIN VAS 6/10. PAIN THE PATIENT DESCRIBES THE PAIN... CURRENT MEDICATIONS TAKING ASACOL 800 MG TABLET DELAYED RELEASE 1 TABLET ORALLY TWICE A DAY TAKING BACLOFEN 20 MG TABLET 1 TABLET ORALLY DAILY TAKING DEPAKOTE ER 500 MG TABLET EXTENDED RELEASE 24 HOUR 1 TABLET ORALLY TWICE A DAY TAKING PROVIGIL 100 MG TABLET 1 TABLET ORALLY ONCE A DAY TAKING TECFIDERA 240 MG TABLET 1 TABLET ORALLY TWICE A DAY TAKING VITAMIN D-3 2000 UNITS CAPSULE 1 CAPSULE ORALLY ONCE A DAY TAKING VITAMIN E 1000 UNIT CAPSULE 1 CAPSULE ORALLY ONCE A DAY TAKING IBUPROFEN 600 MG TABLET 1 TABLET ORALLY DAILY PRN TAKING PROLIA 60 MG/ML SOLUTION DIRECTED SUBCUTANEOUS Q SIX MONTHS TAKING CALCIUM 600 + D 600-400 MG-UNIT TABLET 1 TABLET ORALLY DAILY TAKING VOLTAREN 1 % GEL DIRECTED TRANSDERMAL APPLY SMALL AMOUNT TO AFFECTED AREA RIGHT ANKLE Q8H PRN PAIN TAKING MAXALT 10 MG TABLET 1 TABLET ORALLY DAILY NEEDED FOR MIGRAINES MAXIUM MIGRAINES A MONTH =2 TAKING NEURONTIN 300 MG CAPSULE 1 CAPSULE ORALLY BID NOT-TAKING CEPHALEXIN 500 MG CAPSULE 1 CAPSULE ORALLY EVERY 12 HRS NOT-TAKING PATANOL 0.1 % SOLUTION 1 DROP INTO BOTH EYES OPHTHALMIC TWICE A DAY NEEDED MEDICATION LIST REVIEWED AND RECONCILED WITH THE PATIENT PAST MEDICAL HISTORY MULTIPLE SCLEROSIS (DR. WHITING) SEIZURES- LAST SEIZURE WAS 30 YEARS AGO ULCERATIVE COLITIS (DR. GRANDA) CARPAL TUNNEL OSTEOPOROSIS; STARTED PROLIA 12/29 SMOKER NON-TOXIC MULTINODULAR GOITER STABLE ON US 2008, 2013, 09/28 BL CARPAL TUNNEL - NO SURGERY ECHO 2004 MILD GLOBAL HYPOKINESIS LV EF 50% RT SCIATICA 2018 MINI BOWEL PERFORATION 2002 LOW BACK PAIN RIGHT LEG PAIN ALLERGIES FLAGYL: RED RASH - ALLERGY SOCIAL HISTORY GENERAL: TOBACCO USE ARE YOU A:CURRENT SMOKER HOW OFTEN DO YOU SMOKE CIGARETTES?EVERY DAY HOW SOON AFTER YOU WAKE UP DO YOU SMOKE YOUR FIRST CIGARETTE?AFTER 60 MIN HOW MANY CIGARETTES A DAY DO YOU SMOKE?6-10 ARE YOU INTERESTED IN QUITTING?NOT READY TO QUIT PT DOES NOT WANT SMOKING CESSATION HANDOUT PATIENT COUNSELED ON THE DANGERS OF TOBACCO USE AND URGED TO QUIT:11/19/2020 COUNSELED THE PATIENT ON SMOKING EFFECTS, EDUCATION [id number]/08/2021 VAPORNO E-CIGARETTENO LATEX QUESTIONNAIRE LATEX ALLERGY : HAVE YOU EVER DEVELOPED ANY TYPE OF REACTION AFTER HANDLING LATEX PRODUCTS SUCH RUBBER GLOVES, CONDOMS, DIAPHRAGMS, BALLOONS, SOCKS, OR UNDERWEAR?NO LATEX ALLERGY : HAVE YOU EVER DEVELOPED ANY TYPE OF REACTION DURING OR AFTER DENTAL APPOINTMENT, VAGINAL/RECTAL EXAMINATION, SURGICAL PROCEDURE, OR ANY OTHER EXPOSURE?NO DATE ASKED : 09/20/2020 LATEX RISK : HAVE YOU EVER HAD ANY DIFFICULTY BREATHING OR HIVES AFTER EATING OR HANDLING ANY FRUITS, OR VEGETABLES; SUCH KIWI, BANANAS, STONE FRUITS, OR CHESTNUTSNO LATEX RISK : DO YOU HAVE A PREVIOUS PERSONAL HISTORY OF MORE THAN NINE SURGERIES, SPINA BIFIDA, OR REPEATED CATHERIZATIONS? NO LATEX RISK : ARE YOU FREQUENTLY EXPOSED TO LATEX PRODUCTS IN YOUR OCCUPATION?NO LUNG CANCER SCREENING SMOKING STATUS:CURRENT SMOKER IS THE PATIENT BETWEEN THE AGE OF 55 AND 77?YES HAS THE PATIENT EVER BEEN DIAGNOSED WITH LUNG CANCER?NO ALCOHOL SCREENING DID YOU HAVE A DRINK CONTAINING ALCOHOL IN THE PAST YEAR?NO POINTS0 INTERPRETATIONNEGATIVE RECREATIONAL DRUG USE DRUG USE?NO CAFFEINE NONE. SEXUAL HX HAD SEX IN THE LAST 12 MONTHS (VAGINAL, ORAL, OR ANAL)?YES WITHMEN ONLY LMP:POST MENOPAUSE HAVE YOU EVER HAD AN STD?NO HIV / HEP-C SCREENING HIV TEST OFFERED TO PATIENT:YES DATE OFFERED:02/14/2019 TEST ACCEPTED:NO REASON:PATIENT DECLINED BROCHURE PROVIDED TO PATIENTYES [employer]NA[employer]ISM [id number] [employer] TOGOL[employer]. 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 DIET: NO HX EATING DISORDERS. EXERCISE: NO REGULAR EXERCISE. MARITAL STATUS: . OTHERS AT HOME: SPOUSE, YOUNGEST DAUGHTER. - PFS REFERRAL NEEDED?NO CLERGY REFERRAL NEEDED?NO PUBLIC HEALTH REFERRAL NEEDED?NO WAS THE PROVIDER NOTIFIED OF ANY PERTINENT INFO?YES N/A HAS THE PATIENT BEEN EDUCATED REGARDING HIS/HER PLAN OF CARE?YES HAS THE PATIENT BEEN EDUCATED REGARDING PAIN, THE RISK FOR PAIN, THE IMPORTANCE OF EFFECTIVE PAIN MANAGEMENT, AND THE PAIN ASSESSMENT PROCESS?YES ADVANCE DIRECTIVE ADVANCE DIRECTIVE DISCUSSED WITH PATIENT:YES HCP: 1. -STACEY [phone] 2. MARIA DEL ROSARIO CRUZ- DAUGHTER [phone] REVIEW OF SYSTEMS CONSTITUTIONAL: ANY RECENT FEVER NO . CHILLS NO . WEIGHT CHANGE OF UNKNOWN REASONS NO . GASTROENTEROLOGY: NEW UNEXPLAINABLE CHANGES IN BOWEL CONTROL NO . CONSTIPATION NO . GENITOURINARY: ANY NEW CHANGE IN BLADDER CONTROL? NO . NEUROLOGY: NEW ONSET DIZZINESS OR NEUROLOGICAL CHANGES NOT MENTIONED NO . NEW NUMBNESS OR PAIN PATTERNS NOT MENTIONED AND PERTINENT TO TODAY'S VISIT NO . CARDIOLOGY: NEW CHEST PRESSURE NO . NEW CHEST PAIN NO . RESPIRATORY: UNEXPLAINABLE COUGH NO . NEW SHORTNESS OF BREATH NO . VITAL SIGNS WT 131 LBS, HT 66.5 IN, BMI 20.82 INDEX, BP 109/55 MM HG, HR 67 /MIN, RR 18 /MIN, TEMP 98.1 F, OXYGEN SAT % 98, SAFE IN ENV? (Y/N) Y, REVIEWED BY: EM. EXAMINATION GENERAL EXAMINATION: GENERALAWAKE,ALERT ,PLEASANT . PSYCHAFFECT NORMAL . LUNGS:LUNG WEIR ARE CLEAR TO AUSCULTATION BILATERALLY. GOOD MOVEMENT OF AIR . HEART:S1, S2 IN A REGULAR RATE AND RHYTHM. NO SIGNIFICANT MURMURS, RUBS OR GALLOPS NOTED . ASSESSMENTS OTHER CHRONIC PAIN - G89.29 (PRIMARY) INTERVERTEBRAL DISC DISORDER WITH RADICULOPATHY OF LUMBOSACRAL REGION - M51.17 TREATMENT OTHER CHRONIC PAIN PAIN PROCEDURE LOGDATE OF PROCEDURE11/22/20PROCEDURE:LUMBAR EPIDURAL STEROID INJECTION [id number] OF PRE SEDATENORCO 5/325MG, VALIUM 5MG, BENADRYL 25MGRESULT:MARKED REDUCTION IN PAIN CONTINUES TODAY PROCEDURE CODES FA211 ESTABILISHED PATIENT [facility] CHARGE DISPOSITION & COMMUNICATION FOLLOW UP 3 MONTHS (REASON: LOW BACK PAIN/RIGHT LEG.) ELECTRONICALLY SIGNED BY JULIAN MENDOZA ON 12/07/2020 AT 01:25 PM EST DISCLAIMER : THIS IS A VISIT SUMMARY EXTRACTED FROM THE [employer] CHART. IT IS NOT A COPY OF THE [employer] PROGRESS NOTE. MTDD
== END ==
LOC: M PAIN 10:30
PROVIDERS: ATTEND Nurse Practitioner Family
DX: M51.17 Intervertebral disc disorders with radiculopathy, lumbosacral region (principal); G89.29 Other chronic pain; G35 Multiple sclerosis; G40.909 Epilepsy, unspecified, not intractable, without status epilepticus; F17.210 Nicotine dependence, cigarettes, uncomplicated; Z88.1 Allergy status to other antibiotic agents; Z79.899 Other long term (current) drug therapy

== ENCOUNTER → 2021-02-28 | Outpatient (CLI) | payer MEDICARE ==
--- NOTE | 2021-03-15 05:54 | ECWPNPC ---
PATIENT NAME: MARY NAIR : 1960 GENDER: FEMALE VISIT DATE: 02/28/2021 DISCHARGE DATE: 02/28/21 1132 VISIT LOCKED DATE TIME: PHYSICIAN: CARTER ASTUDILLO PHYSICIAN PAGER NO: ACTIVE RESOURCE: CARTER ASTUDILLO REASON FOR APPOINTMENT 1. BACK HISTORY OF PRESENT ILLNESS DEPRESSION SCREENING: PHQ-2 (2015 EDITION) LITTLE INTEREST OR PLEASURE IN DOING THINGS?NOT AT ALL FEELING DOWN, DEPRESSED, OR HOPELESS?NOT AT ALL TOTAL SCORE0 GENERAL: HERE FOR FOLLOW-UP OF CHRONIC RIGHT LOWER EXTREMITY PAIN. PAIN HAS BEGUN TO RETURN. RESPONDS WELL TO LUMBAR EPIDURAL STEROID INJECTION. SHE IS ON MEDICATIONS FOR MULTIPLE SCLEROSIS THAT CAN LOWER HER IMMUNE STATUS. SHE IS AWARE OF THE INCREASED RISK OF IMMUNOSUPPRESSION AND INFECTION BEING ON THIS MEDICATION IN COMBINATION WITH STEROID INJECTION. SHE DOES NOT STOP HERS FOR ANY PROCEDURES AND SHE UNDERSTANDS THE INCREASED RISK. -. FALL RISK SCREENING: SCREENING : NO FALLS REPORTED IN THE LAST YEAR. PAIN SCREENING: PATIENT HAS A COMPLAINT OF ACUTE OR CHRONIC PAIN :YES LOCATION OF PAIN:LOW BACK, LEG(S) RIGHT LEG INTENSITY OF PAIN (SCALE OF 1 TO 10):5 WHAT DOES YOUR PAIN FEEL LIKE:TENDER, SORE, SHOOTING DURATION:MAINLY DURING THE NIGHT PAIN IS INCREASED BY:ACTIVITIES, PROLONGED STANDING PAIN IS DECREASED BY:SITTING NURSING NOTE: -. PAIN CENTER INTAKE QUESTIONS: DO YOU HAVE A HISTORY OF MRSA? :NO DO YOU TAKE A BLOOD THINNERS? :NO DO YOU HAVE ANY BLEEDING DISORDERS? :NO ANY NEW NUMBNESS OR WEAKNESS IN YOUR LEGS OR ARMS? :NO ANY PACEMAKER,DEFIBRILLATOR, OR DORSAL COLUMN STIMULATOR? :NO DO YOU HAVE ANY RASHES OR OPEN SORES? :NO ARE YOU ALLERGIC TO IV DYE? :NO ARE YOU DIABETIC? :NO ANY NEW PROBLEMS WITH YOUR MEDICATIONS? :NO HAVE YOU RECEIVED A VACCINE IN THE PAST 30 DAYS? :YES 2ND COVID 02/23/2021 DO YOU PLAN TO RECEIVE A VACCINE IN THE NEXT 21 DAYS? :NO DO YOU NEED ANY PRESCRIPTION? :NO DO YOU TAKE ANY IMMUNOSUPPRESSIVE MEDICATIONS? :YES TECFIDERA FOR MS IS THERE A CHANCE YOU COULD BE ? :NO ARE YOU BREAST FEEDING? :NO CURRENT MEDICATIONS TAKING ASACOL 800 MG TABLET DELAYED RELEASE 1 TABLET ORALLY TWICE A DAY TAKING BACLOFEN 20 MG TABLET 1 TABLET ORALLY DAILY TAKING DEPAKOTE ER 500 MG TABLET EXTENDED RELEASE 24 HOUR 1 TABLET ORALLY TWICE A DAY TAKING PROVIGIL 100 MG TABLET 1 TABLET ORALLY ONCE A DAY TAKING TECFIDERA 240 MG TABLET 1 TABLET ORALLY TWICE A DAY TAKING VITAMIN D-3 2000 UNITS CAPSULE 1 CAPSULE ORALLY ONCE A DAY TAKING VITAMIN E 1000 UNIT CAPSULE 1 CAPSULE ORALLY ONCE A DAY TAKING IBUPROFEN 600 MG TABLET 1 TABLET ORALLY DAILY PRN TAKING PROLIA 60 MG/ML SOLUTION DIRECTED SUBCUTANEOUS Q SIX MONTHS TAKING CALCIUM 600 + D 600-400 MG-UNIT TABLET 1 TABLET ORALLY DAILY TAKING VOLTAREN 1 % GEL DIRECTED TRANSDERMAL APPLY SMALL AMOUNT TO AFFECTED AREA RIGHT ANKLE Q8H PRN PAIN TAKING MAXALT 10 MG TABLET 1 TABLET ORALLY DAILY NEEDED FOR MIGRAINES MAXIUM MIGRAINES A MONTH =2 TAKING NEURONTIN 300 MG CAPSULE 1 CAPSULE ORALLY BID NOT-TAKING CEPHALEXIN 500 MG CAPSULE 1 CAPSULE ORALLY EVERY 12 HRS NOT-TAKING PATANOL 0.1 % SOLUTION 1 DROP INTO BOTH EYES OPHTHALMIC TWICE A DAY NEEDED MEDICATION LIST REVIEWED AND RECONCILED WITH THE PATIENT PAST MEDICAL HISTORY MULTIPLE SCLEROSIS (DR. WHITING) SEIZURES- LAST SEIZURE WAS 30 YEARS AGO ULCERATIVE COLITIS (DR. GRANDA) CARPAL TUNNEL OSTEOPOROSIS; STARTED PROLIA 12/29 SMOKER NON-TOXIC MULTINODULAR GOITER STABLE ON US 2008, 2013, 09/28 BL CARPAL TUNNEL - NO SURGERY ECHO 2004 MILD GLOBAL HYPOKINESIS LV EF 50% RT SCIATICA 2018 MINI BOWEL PERFORATION 2002 LOW BACK PAIN RIGHT LEG PAIN ALLERGIES FLAGYL: RED RASH - ALLERGY SOCIAL HISTORY GENERAL: TOBACCO USE ARE YOU A:CURRENT SMOKER ARE YOU INTERESTED IN QUITTING?NOT READY TO QUIT PT DOES NOT WANT SMOKING CESSATION HANDOUT COUNSELED THE PATIENT ON SMOKING EFFECTS, EDUCATION [id number]/19/2021 HOW MANY CIGARETTES A DAY DO YOU SMOKE?6-10 HOW SOON AFTER YOU WAKE UP DO YOU SMOKE YOUR FIRST CIGARETTE?AFTER 60 MIN HOW OFTEN DO YOU SMOKE CIGARETTES?EVERY DAY PATIENT COUNSELED ON THE DANGERS OF TOBACCO USE AND URGED TO QUIT:11/19/2020 VAPORNO E-CIGARETTENO LATEX QUESTIONNAIRE LATEX ALLERGY : HAVE YOU EVER DEVELOPED ANY TYPE OF REACTION AFTER HANDLING LATEX PRODUCTS SUCH RUBBER GLOVES, CONDOMS, DIAPHRAGMS, BALLOONS, SOCKS, OR UNDERWEAR?NO LATEX ALLERGY : HAVE YOU EVER DEVELOPED ANY TYPE OF REACTION DURING OR AFTER DENTAL APPOINTMENT, VAGINAL/RECTAL EXAMINATION, SURGICAL PROCEDURE, OR ANY OTHER EXPOSURE?NO LATEX RISK : HAVE YOU EVER HAD ANY DIFFICULTY BREATHING OR HIVES AFTER EATING OR HANDLING ANY FRUITS, OR VEGETABLES; SUCH KIWI, BANANAS, STONE FRUITS, OR CHESTNUTSNO LATEX RISK : DO YOU HAVE A PREVIOUS PERSONAL HISTORY OF MORE THAN NINE SURGERIES, SPINA BIFIDA, OR REPEATED CATHERIZATIONS? NO LATEX RISK : ARE YOU FREQUENTLY EXPOSED TO LATEX PRODUCTS IN YOUR OCCUPATION?NO DATE ASKED : 02/28/2021 ALCOHOL USE: YES, VERY RARELY. LUNG CANCER SCREENING SMOKING STATUS:CURRENT SMOKER IS THE PATIENT BETWEEN THE AGE OF 55 AND 77?YES HAS THE PATIENT EVER BEEN DIAGNOSED WITH LUNG CANCER?NO ALCOHOL SCREENING DID YOU HAVE A DRINK CONTAINING ALCOHOL IN THE PAST YEAR?NO POINTS0 INTERPRETATIONNEGATIVE RECREATIONAL DRUG USE DRUG USE?NO CAFFEINE NONE. SEXUAL HX HAD SEX IN THE LAST 12 MONTHS (VAGINAL, ORAL, OR ANAL)?YES WITHMEN ONLY LMP:POST MENOPAUSE HAVE YOU EVER HAD AN STD?NO HIV / HEP-C SCREENING HIV TEST OFFERED TO PATIENT:YES DATE OFFERED:02/14/2019 TEST ACCEPTED:NO REASON:PATIENT DECLINED BROCHURE PROVIDED TO PATIENTYES SCIENTOLOGY [id number] JAIN LANGUAGE MICRONESIAN. 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 DIET: NO HX EATING DISORDERS. EXERCISE: NO REGULAR EXERCISE. MARITAL STATUS: . OTHERS AT HOME: SPOUSE, YOUNGEST DAUGHTER. - PFS REFERRAL NEEDED?NO CLERGY REFERRAL NEEDED?NO PUBLIC HEALTH REFERRAL NEEDED?NO WAS THE PROVIDER NOTIFIED OF ANY PERTINENT INFO?YES N/A HAS THE PATIENT BEEN EDUCATED REGARDING HIS/HER PLAN OF CARE?YES HAS THE PATIENT BEEN EDUCATED REGARDING PAIN, THE RISK FOR PAIN, THE IMPORTANCE OF EFFECTIVE PAIN MANAGEMENT, AND THE PAIN ASSESSMENT PROCESS?YES ADVANCE DIRECTIVE ADVANCE DIRECTIVE DISCUSSED WITH PATIENT:YES HCP: 1. -STACEY [phone] 2. MARIA DEL ROSARIO CRUZ- DAUGHTER [phone] REVIEW OF SYSTEMS CONSTITUTIONAL: ANY RECENT FEVER NO . CHILLS NO . WEIGHT CHANGE OF UNKNOWN REASONS NO . GASTROENTEROLOGY: NEW UNEXPLAINABLE CHANGES IN BOWEL CONTROL NO . CONSTIPATION NO . GENITOURINARY: ANY NEW CHANGE IN BLADDER CONTROL? NO . NEUROLOGY: NEW ONSET DIZZINESS OR NEUROLOGICAL CHANGES NOT MENTIONED NO . NEW NUMBNESS OR PAIN PATTERNS NOT MENTIONED AND PERTINENT TO TODAY'S VISIT NO . CARDIOLOGY: NEW CHEST PRESSURE NO . PATIENT DENIES NO . RESPIRATORY: UNEXPLAINABLE COUGH NO . NEW SHORTNESS OF BREATH NO . VITAL SIGNS WT 130.8 LBS, HT 66.5 IN, BMI 20.79 INDEX, BP 109/70 MM HG, HR 75 /MIN, RR 16 /MIN, TEMP 97.8 F, OXYGEN SAT % 99%, SAFE IN ENV? (Y/N) YES, NA INITIALS PA 10:59T.KIMBERLEE FERRARA. EXAMINATION GENERAL EXAMINATION: GENERALALERT,NO DISTRESS . PSYCHAFFECT NORMAL . LUNGS:LUNG SOUNDS ARE CLEAR . HEART:HEART RATE REGULAR . MUSCULOSKELETAL:MILD WEAKNESS OVER RIGHT LEG.TREMOR WITH MST RIGHT LEG. NEUROLOGIC EXAM:NORMAL SENSATION LIGHT TOUCH BILAT LEGS. DIAGNOSTIC TESTS REVIEWEDMRI L/S SPINE-05/11/18. ASSESSMENTS INTERVERTEBRAL DISC DISORDER WITH RADICULOPATHY OF LUMBOSACRAL REGION - M51.17 (PRIMARY) TREATMENT INTERVERTEBRAL DISC DISORDER WITH RADICULOPATHY OF LUMBOSACRAL REGION MED: PAIN NORCO TABLET 5MG/325MG ORALLY HYDROCODONE/ACETAMINOPHEN (ORDERED FOR 03/07/2021) MEDICATION: VALIUM TAB 5MG ORALLY (DIAZEPAM) (ORDERED FOR 03/07/2021) MED: PAIN BENADRYL TAB 25MG ORALLY DIPHENHYDRAMINE (ORDERED FOR 03/07/2021) NOTES: LUMBAR EPIDURAL STERIOD INJECTION PRINTED AND REVIEWED PRE PROCEDURE TEACHING, PATIENT VERBALIZED UNDERSTANDING GEENA FERRARA. PROCEDURE CODES FA211 ESTABILISHED PATIENT [facility] CHARGE DISPOSITION & COMMUNICATION FOLLOW UP POST (REASON: LUMBAR EPIDURAL STERIOD INJECTION/COVID 19) ELECTRONICALLY SIGNED BY JULIAN MENDOZA ON 03/14/2021 AT 02:01 PM EDT DISCLAIMER : THIS IS A VISIT SUMMARY EXTRACTED FROM THE [employer] CHART. IT IS NOT A COPY OF THE [employer] PROGRESS NOTE. MTDD
== END ==
LOC: M PAIN 10:45
PROVIDERS: ATTEND Nurse Practitioner Family
DX: M51.17 Intervertebral disc disorders with radiculopathy, lumbosacral region (principal); G89.29 Other chronic pain; G35 Multiple sclerosis; F17.210 Nicotine dependence, cigarettes, uncomplicated; Z88.1 Allergy status to other antibiotic agents; Z79.899 Other long term (current) drug therapy

== ENCOUNTER → 2021-03-16 | Outpatient (CLI) | payer MEDICARE | LOC: M LABSMTC 09:58 | PROVIDERS: ATTEND Anesthesiology | DX: Z11.52 Encounter for screening for COVID-19 (principal) ==

== ENCOUNTER → 2021-03-21 | Outpatient (CLI) | payer MEDICARE ==
--- NOTE | 2021-03-21 12:13 | REP ---
INDICATION: LUMBAR EPIDURAL STEROID INJECTION. COMPARISON: None. TECHNIQUE: Two C-arm views lower lumbar spine. FINDINGS: A needle is seen at the L4-5 level. A small amount of contrast is injected. IMPRESSION: 7 seconds of fluoroscopy time was utilized. <Electronically signed by Alen Landry > 03/21/21 0296
--- NOTE | 2021-03-23 02:20 | ECWPNPC ---
PATIENT NAME: MARY NAIR : 1960 GENDER: FEMALE VISIT DATE: 03/21/2021 DISCHARGE DATE: 03/21/21 1151 VISIT LOCKED DATE TIME: PHYSICIAN: BEV BARBOZA MD PHYSICIAN PAGER NO: ACTIVE RESOURCE: BEV BARBOZA MD REASON FOR APPOINTMENT 1. LUMBAR EPIDURAL STERIOD INJECTION HISTORY OF PRESENT ILLNESS GENERAL: -. FALL RISK SCREENING: SCREENING : NO FALLS REPORTED IN THE LAST YEAR. PAIN SCREENING: PATIENT HAS A COMPLAINT OF ACUTE OR CHRONIC PAIN :YES LOCATION OF PAIN:LOW BACK, LEG(S) INTENSITY OF PAIN (SCALE OF 1 TO 10):7 WHAT DOES YOUR PAIN FEEL LIKE:ACHING, BURNING, SORE DURATION:INTERMITTENT PATIENT REPORTS IT WORSENS DURING THE DAY. PAIN IS INCREASED BY:ACTIVITIES, PROLONGED STANDING PAIN IS DECREASED BY:USE OF PAIN MEDICATIONS, OTHERS REST PLAN/GOALS/TREATMENT/INTERVENTION/FOLLOW UP:SEE PLAN NURSING NOTE: -. PAIN CENTER INTAKE QUESTIONS: DO YOU HAVE A HISTORY OF MRSA? :NO DO YOU TAKE A BLOOD THINNERS? :NO DO YOU HAVE ANY BLEEDING DISORDERS? :NO ANY NEW NUMBNESS OR WEAKNESS IN YOUR LEGS OR ARMS? :NO ANY PACEMAKER,DEFIBRILLATOR, OR DORSAL COLUMN STIMULATOR? :NO DO YOU HAVE ANY RASHES OR OPEN SORES? :NO ARE YOU ALLERGIC TO IV DYE? :NO ARE YOU DIABETIC? :NO ANY NEW PROBLEMS WITH YOUR MEDICATIONS? :NO HAVE YOU RECEIVED A VACCINE IN THE PAST 30 DAYS? :YES IF SO WHAT VACCINE AND WHEN? 2ND COVID VACCINE 02/23/21. DO YOU PLAN TO RECEIVE A VACCINE IN THE NEXT 21 DAYS? :NO DO YOU TAKE ANY IMMUNOSUPPRESSIVE MEDICATIONS? :YES TECFIDERA - LAST DOSE 03/21/21 0500; DR. BARBOZA AWARE ANY HISTORY OF SEIZURES? :YES LAST SEIZURE 30 YEARS AGO ANY HISTORY OF CARDIAC ISSUES OR EVENTS? :NO DO YOU HAVE ANY KIDNEY OR LIVER DISEASE? :NO DO YOU HAVE SLEEP APNEA? :NO ANY RECENT HEAD INJURY? :NO DO YOU HAVE ANY NEW INFECTIONS? :NO IS THERE A CHANCE YOU COULD BE ? :N/A ARE YOU BREAST FEEDING? :N/A WHEN DID YOU LAST EAT? : 0500 WHEN DID YOU LAST DRINK? : 0830 WHAT DID YOU LAST DRINK? : WATER NAME OF PERSON DRIVING YOU HOME? : STACEY () DO YOU HAVE ANY OTHER QUESTIONS OR CONCERNS? : NO CURRENT MEDICATIONS TAKING ASACOL 800 MG TABLET DELAYED RELEASE 1 TABLET ORALLY TWICE A DAY TAKING BACLOFEN 20 MG TABLET 1 TABLET ORALLY DAILY, NOTES: 03/20/21 1900 TAKING DEPAKOTE ER 500 MG TABLET EXTENDED RELEASE 24 HOUR 1 TABLET ORALLY TWICE A DAY, NOTES: 0500 TAKING PROVIGIL 100 MG TABLET 1 TABLET ORALLY ONCE A DAY TAKING TECFIDERA 240 MG TABLET 1 TABLET ORALLY TWICE A DAY, NOTES: 0500 TAKING VITAMIN D-3 2000 UNITS CAPSULE 1 CAPSULE ORALLY ONCE A DAY TAKING VITAMIN E 1000 UNIT CAPSULE 1 CAPSULE ORALLY ONCE A DAY TAKING IBUPROFEN 600 MG TABLET 1 TABLET ORALLY DAILY PRN TAKING PROLIA 60 MG/ML SOLUTION DIRECTED SUBCUTANEOUS Q SIX MONTHS TAKING CALCIUM 600 + D 600-400 MG-UNIT TABLET 1 TABLET ORALLY DAILY TAKING VOLTAREN 1 % GEL DIRECTED TRANSDERMAL APPLY SMALL AMOUNT TO AFFECTED AREA RIGHT ANKLE Q8H PRN PAIN TAKING MAXALT 10 MG TABLET 1 TABLET ORALLY DAILY NEEDED FOR MIGRAINES MAXIUM MIGRAINES A MONTH =2 TAKING NEURONTIN 300 MG CAPSULE 1 CAPSULE ORALLY BID, NOTES: 0500 NOT-TAKING CEPHALEXIN 500 MG CAPSULE 1 CAPSULE ORALLY EVERY 12 HRS NOT-TAKING PATANOL 0.1 % SOLUTION 1 DROP INTO BOTH EYES OPHTHALMIC TWICE A DAY NEEDED MEDICATION LIST REVIEWED AND RECONCILED WITH THE PATIENT PAST MEDICAL HISTORY MULTIPLE SCLEROSIS (DR. WHITING) SEIZURES- LAST SEIZURE WAS 30 YEARS AGO ULCERATIVE COLITIS (DR. GRANDA) CARPAL TUNNEL OSTEOPOROSIS; STARTED PROLIA 12/29 SMOKER NON-TOXIC MULTINODULAR GOITER STABLE ON US 2008, 2013, 09/28 BL CARPAL TUNNEL - NO SURGERY ECHO 2004 MILD GLOBAL HYPOKINESIS LV EF 50% RT SCIATICA 2018 MINI BOWEL PERFORATION 2002 LOW BACK PAIN RIGHT LEG PAIN ALLERGIES FLAGYL: RED RASH - ALLERGY SOCIAL HISTORY GENERAL: TOBACCO USE ARE YOU A:CURRENT SMOKER ARE YOU INTERESTED IN QUITTING?NOT READY TO QUIT PT DOES NOT WANT SMOKING CESSATION HANDOUT COUNSELED THE PATIENT ON SMOKING EFFECTS, EDUCATION [id number]/07/2021 HOW MANY CIGARETTES A DAY DO YOU SMOKE?6-10 HOW SOON AFTER YOU WAKE UP DO YOU SMOKE YOUR FIRST CIGARETTE?AFTER 60 MIN HOW OFTEN DO YOU SMOKE CIGARETTES?EVERY DAY PATIENT COUNSELED ON THE DANGERS OF TOBACCO USE AND URGED TO QUIT:03/18/2021 VAPORNO E-CIGARETTENO LATEX QUESTIONNAIRE LATEX ALLERGY : HAVE YOU EVER DEVELOPED ANY TYPE OF REACTION AFTER HANDLING LATEX PRODUCTS SUCH RUBBER GLOVES, CONDOMS, DIAPHRAGMS, BALLOONS, SOCKS, OR UNDERWEAR?NO LATEX ALLERGY : HAVE YOU EVER DEVELOPED ANY TYPE OF REACTION DURING OR AFTER DENTAL APPOINTMENT, VAGINAL/RECTAL EXAMINATION, SURGICAL PROCEDURE, OR ANY OTHER EXPOSURE?NO LATEX RISK : HAVE YOU EVER HAD ANY DIFFICULTY BREATHING OR HIVES AFTER EATING OR HANDLING ANY FRUITS, OR VEGETABLES; SUCH KIWI, BANANAS, STONE FRUITS, OR CHESTNUTSNO LATEX RISK : DO YOU HAVE A PREVIOUS PERSONAL HISTORY OF MORE THAN NINE SURGERIES, SPINA BIFIDA, OR REPEATED CATHERIZATIONS? NO LATEX RISK : ARE YOU FREQUENTLY EXPOSED TO LATEX PRODUCTS IN YOUR OCCUPATION?NO DATE ASKED : 03/18/2021 ALCOHOL USE: YES, VERY RARELY. LUNG CANCER SCREENING SMOKING STATUS:CURRENT SMOKER IS THE PATIENT BETWEEN THE AGE OF 55 AND 77?YES HAS THE PATIENT EVER BEEN DIAGNOSED WITH LUNG CANCER?NO ALCOHOL SCREENING DID YOU HAVE A DRINK CONTAINING ALCOHOL IN THE PAST YEAR?NO POINTS0 INTERPRETATIONNEGATIVE RECREATIONAL DRUG USE DRUG USE?NO CAFFEINE NONE. SEXUAL HX HAD SEX IN THE LAST 12 MONTHS (VAGINAL, ORAL, OR ANAL)?YES WITHMEN ONLY LMP:POST MENOPAUSE HAVE YOU EVER HAD AN STD?NO HIV / HEP-C SCREENING HIV TEST OFFERED TO PATIENT:YES DATE OFFERED:02/14/2019 TEST ACCEPTED:NO REASON:PATIENT DECLINED BROCHURE PROVIDED TO PATIENTYES JAINISM [id number] TENRIISM LANGUAGE WELSH. 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 DIET: NO HX EATING DISORDERS. EXERCISE: NO REGULAR EXERCISE. MARITAL STATUS: . OTHERS AT HOME: SPOUSE, YOUNGEST DAUGHTER. - PFS REFERRAL NEEDED?NO CLERGY REFERRAL NEEDED?NO PUBLIC HEALTH REFERRAL NEEDED?NO WAS THE PROVIDER NOTIFIED OF ANY PERTINENT INFO?YES N/A HAS THE PATIENT BEEN EDUCATED REGARDING HIS/HER PLAN OF CARE?YES HAS THE PATIENT BEEN EDUCATED REGARDING PAIN, THE RISK FOR PAIN, THE IMPORTANCE OF EFFECTIVE PAIN MANAGEMENT, AND THE PAIN ASSESSMENT PROCESS?YES ADVANCE DIRECTIVE ADVANCE DIRECTIVE DISCUSSED WITH PATIENT:YES HCP: 1. -STACEY [phone] Krystle CRUZ- DAUGHTER [phone] VITAL SIGNS WT 130.6 LBS, HT 66.5 IN, BMI 20.76 INDEX, BP 118/55 MM HG, HR 64 /MIN, RR 16 /MIN, TEMP 97.4 F, OXYGEN SAT % 100%, SAFE IN ENV? (Y/N) YES, NA INITIALS SC 10:08, REVIEWED BY: Kira MATHEWS RN. EXAMINATION GENERAL: A HISTORY AND PHYSICAL EXAM ON THE PATIENT WAS DONE ON 02/28/2021 (DATE OF ORIGINAL ASSESSMENT) IN PREPARATION OF SURGERY/PROCEDURE. I HAVE NOW REASSESSED THIS PATIENT'S HEALTH STATUS AND PERFORMED AN UPDATED EXAM TODAY. ALL CHANGES IN THE PATIENT'S HISTORY, PHYSICAL EXAM, PRE-EXISTING CONDITONS, AND INDICATIONS/CONTRAINDICATIONS TO THE PLANNED PROCEDURE AND ANESTHESIA ARE DOCUMENTED AND EVALUATED BELOW. I ATTEST TO THE ADEQUACY AND APPROPRIATENESS OF MY ASSESSMENT, AND CONFIRM THE NECESSITY FOR THE PLANNED PROCEDURE. THE PATIENT IS ALERT, ORIENTED TIMES THREE AND COOPERATIVE. LUNGS ARE CLEAR TO AUSCULTATION. HEART SHOWS REGULAR RHYTHM, NO MURMURS AND NO GALLOPS. ASSESSMENTS INTERVERTEBRAL DISC DISORDER WITH RADICULOPATHY OF LUMBOSACRAL REGION - M51.17 (PRIMARY) TREATMENT INTERVERTEBRAL DISC DISORDER WITH RADICULOPATHY OF LUMBOSACRAL REGION [facility] FLUORO GUIDE SPINE INJECTION (PAIN)[id number] COMPLETION OF PROCEDURAL VISIT WHEN MEETS CRITERIASYAGNIESZKA MENENDEZ 03/21/2021 11:44:56 AM > CRITERIA MET. MEDICATION: VALIUM TAB 5MG ORALLY (DIAZEPAM)KORIN HOU RN 03/21/2021 10:20:22 AM > VERIFIED. AGNIESZKA MATHEWS 03/21/2021 10:23:49 AM > ADMINISTERED. MED: PAIN BENADRYL TAB 25MG ORALLY DIPHENHYDRAMINESKORIN SHAH RN 03/21/2021 10:19:31 AM > VERIFIED. AGNIESZKA MATHEWS 03/21/2021 10:24:10 AM > ADMINISTERED. MED: PAIN NORCO TABLET 5MG/325MG ORALLY HYDROCODONE/ACETAMINOPHENKORIN HOU RN 03/21/2021 10:20:03 AM > VERIFIED. AGNIESZKA MATHEWS 03/21/2021 10:24:34 AM > ADMINISTERED. OTHERS NOTES: 03/18/21 1425 PAT COMPLETED. ARNAUD TANKROOM WORKER. PROCEDURES PAIN NURSING RECORD PROCEDURE IN ROOM 1047, PHYSICIAN IN ROOM 1115, START 1118, FINISH 1122, PHYSICIAN OUT OF ROOM 1125, OUT OF ROOM 1133, ECG NORMAL SINUS, PATIENT SHIELDED YES, SAFETY STRAP YES, PREP BETADINE Kira MATHEWS RN, DRESSING TEGADERM DR. BARBOZA LOC: AGNIESZKA MATHEWS 03/21/2021 11:19:09 AM > , 1. ALERT, ORIENTED RESP: AGNIESZKA MATHEWS 03/21/2021 11:19:23 AM > , 1. REGULAR, NO DYSPNEA COLOR: AGNIESZKA MATHEWS 03/21/2021 11:19:27 AM > , 1. PINK SKIN: AGNIESZKA MATHEWS 03/21/2021 11:19:31 AM > , 1. WARM, DRY POSITION: AGNIESZKA MATHEWS 03/21/2021 11:19:34 AM > , 1. PRONE VITALS: AGNIESZKA MATHEWS 03/21/2021 10:55:52 AM > 112/59, 61, 16, 100% SYLAGNIESZKA LEA L 03/21/2021 10:58:58 AM > 113/56, 60, 16, 99% SYLLEONORA,AGNIESZKA L 03/21/2021 11:13:54 AM > 111/58, 58, 16, 96% SYLAGNIESZKA LEA L 03/21/2021 11:25:07 AM > 117/59, 58, 16, 100% SYLAGNIESZKA LEA L 03/21/2021 11:40:25 AM > 114/53, 61, 16, 98% COMPLETION OF PROCEDURE APPOINTMENT: POST PAIN 0, DRESSING SITE DRY AND INTACT, IV N/A, GAIT WHEELCHAIR, TEACHING COMPLETED, PATIENT ACKNOWLEDGES UNDERSTANDING YES, PROCEDURE APPOINTMENT COMPLETED AT 1150 BY: Kira MATHEWS RN PRE PROCEDURE DIAGNOSIS LUMBAR DISC DISORDER WITH RADICULOPATHY POST PROCEDURE DIAGNOSIS LUMBAR DISC DISORDER WITH RADICULOPATHY PROCEDURE LUMBAR EPIDURAL STEROID INJECTION UNDER FLUOROSCOPIC GUIDANCE SURGEON DR. BEV BARBOZA CONSULTING INTERN NONE ANESTHESIA LOCAL PRE PROCEDURE NOTE THE PATIENT HAS A HISTORY OF CHRONIC LOW BACK PAIN. I EVALUATED THE PATIENT AND REVIEWED THE CHART. I WENT OVER THE RISKS, ALTERNATIVES, AND BENEFITS ASSOCIATED WITH THIS PROCEDURE. THE PATIENT WOULD LIKE TO PROCEED AND GIVE CONSENT TO PERFORMED THE PROCEDURE. THE PATIENT DENIES UNEXPLAINABLE WEIGHT LOSS, FEVER, CHILLS, OR NEW CHANGES IN URINARY OR BOWEL CONTROL. THE PATIENT IS COVID-19 NEGATIVE DESCRIPTION OF PROCEDURE THE PATIENT WAS BROUGHT TO THE PROCEDURE ROOM AND PLACED IN THE PRONE POSITION. THE LUMBOSACRAL AREA WAS CLEANED WITH BETADINE SOLUTION AND DRAPED ASEPTICALLY. THE PROCEDURE WAS DONE UNDER STERILE CONDITIONS. A TIMEOUT WAS PERFORMED WHERE THE CONSENTED SITE WAS VERIFIED WITH EVERYONE IN THE ROOM. UNDER FLUOROSCOPIC GUIDANCE, THE TARGET POINT WAS SELECTED AT THE INTERLAMINAR LEVEL OF L4-L5. I CONFIRMED AGAIN THE SITE OF TARGET. LIDOCAINE WAS USED TO NUMB THE SKIN AND THE SUBCUTANEOUS TISSUE BELOW IT. EPIDURAL TUOHY NEEDLE, 17-GAUGE, WAS ADVANCED UNDER FLUOROSCOPIC GUIDANCE AND FOLLOWING PATIENT FEEDBACK UNTIL THE EPIDURAL SPACE WAS REACHED 7 CM DEEP INTO THE SKIN BY THE LOSS OF RESISTANCE TECHNIQUE. ISOVUE-M DYE 30%, 0.25 ML, WAS INJECTED SHOWING ADEQUATE SPREAD OF THE DYE. THEN, A SOLUTION OF 3 ML OF NORMAL SALINE WITH DEPO-MEDROL 40 MG WAS INJECTED SLOWLY FOLLOWING PATIENT FEEDBACK. THE MEDICATIONS WERE VERIFIED WITH THE NURSE. THERE WAS NO EVIDENCE OF BLOOD, PARESTHESIA OR CEREBROSPINAL FLUID DURING THE PROCEDURE. THE PATIENT WAS SENT TO THE RECOVERY ROOM. THE PATIENT WAS MOVING THE EXTREMITIES AND DOING WELL. THERE WERE NO COMPLICATIONS DURING THE PROCEDURE. ESTIMATED BLOOD LOSS WAS LESS THAN 5 ML. FLUOROSCOPY TIME WAS 7 SECONDS POST PROCEDURE NOTE DEPENDING ON THE RESULTS, CONSIDER A RIGHT TRANSFORAMINAL EPIDURAL STEROID INJECTION L4-L5, L5-S1. THE PATIENT WILL BE SEEN IN A FOLLOW UP IN THE NEXT FEW WEEKS. I AM LOOKING FOR LONG LASTING RELIEF FOR THE PATIENT WITH THIS INTERVENTION. INSTRUCTIONS WERE GIVEN, QUESTIONS WERE ANSWERED, AND THE PATIENT EXPRESSED UNDERSTANDING AND AGREES WITH THE PLAN. I, MARCIA GARCIA, DOCUMENTED THE ABOVE INFORMATION ACTING A SCRIBE FOR DR. BARBOZA. I HAVE REVIEWED THE ABOVE DOCUMENT, WRITTEN BY MARCIA GARCIA, PLUG STITCHER, AND I VERIFY THAT IT IS ACCURATE PROCEDURE CODES 21822 LUMBAR/SACRAL W/ IMAGING DISPOSITION & COMMUNICATION FOLLOW UP FOLLOW UP WITH NET TECHNICAL ARCHITECT (REASON: POST LUMBAR EPIDURAL STEROID INJECTION) ELECTRONICALLY SIGNED BY BEV BARBOZA MD, MD ON 03/22/2021 AT 05:23 PM EDT DISCLAIMER : THIS IS A VISIT SUMMARY EXTRACTED FROM THE [employer] CHART. IT IS NOT A COPY OF THE [employer] PROGRESS NOTE. MTDD
== END ==
LOC: M PAIN 10:00
PROVIDERS: ATTEND Anesthesiology
DX: M51.17 Intervertebral disc disorders with radiculopathy, lumbosacral region (principal); G35 Multiple sclerosis; F17.210 Nicotine dependence, cigarettes, uncomplicated; Z88.1 Allergy status to other antibiotic agents; Z79.899 Other long term (current) drug therapy
CPT/HCPCS: 62323; J1030; Q9967

== ENCOUNTER → 2021-04-04 | Outpatient (CLI) | payer MEDICARE ==
--- NOTE | 2021-04-06 03:59 | ECWPNPC ---
PATIENT NAME: MARY NAIR : 1960 GENDER: FEMALE VISIT DATE: 04/04/2021 DISCHARGE DATE: 04/04/21 1020 VISIT LOCKED DATE TIME: PHYSICIAN: CARTER ASTUDILLO PHYSICIAN PAGER NO: ACTIVE RESOURCE: CARTER ASTUDILLO REASON FOR APPOINTMENT 1. POST LUMBAR EPIDURAL STERIOD INJECTION HISTORY OF PRESENT ILLNESS GENERAL: -. FALL RISK SCREENING: SCREENING : NO FALLS REPORTED IN THE LAST YEAR. PAIN SCREENING: PATIENT HAS A COMPLAINT OF ACUTE OR CHRONIC PAIN :YES LOCATION OF PAIN:LOW BACK, LEG(S) RIGHT LEG INTENSITY OF PAIN (SCALE OF 1 TO 10):2 WHAT DOES YOUR PAIN FEEL LIKE:ACHING DURATION:ONLY WITH SPECIFIC ACTIVITIES, INTERMITTENT PAIN IS INCREASED BY:ACTIVITIES PAIN IS DECREASED BY:OTHERS HEAT AND ICE, AND RESTING NURSING NOTE: -. PAIN CENTER INTAKE QUESTIONS: DO YOU HAVE A HISTORY OF MRSA? :NO DO YOU TAKE A BLOOD THINNERS? :NO DO YOU HAVE ANY BLEEDING DISORDERS? :NO ANY NEW NUMBNESS OR WEAKNESS IN YOUR LEGS OR ARMS? :NO ANY PACEMAKER,DEFIBRILLATOR, OR DORSAL COLUMN STIMULATOR? :NO DO YOU HAVE ANY RASHES OR OPEN SORES? :NO ARE YOU ALLERGIC TO IV DYE? :NO ARE YOU DIABETIC? :NO ANY NEW PROBLEMS WITH YOUR MEDICATIONS? :NO HAVE YOU RECEIVED A VACCINE IN THE PAST 30 DAYS? :YES 2ND COVID 02/23/2021 DO YOU PLAN TO RECEIVE A VACCINE IN THE NEXT 21 DAYS? :NO DO YOU NEED ANY PRESCRIPTION? :NO DO YOU TAKE ANY IMMUNOSUPPRESSIVE MEDICATIONS? :YES TECFIDERA FOR MS IS THERE A CHANCE YOU COULD BE ? :NO ARE YOU BREAST FEEDING? :NO HISTORY OF PRESENT ILLNESS: HERE FOR POST PROCEDURE F/U.HAD LESI ON 03/21/2021.REPORTING >50% IMPROVEMENT OVERALL WITH BACK PAIN AND RIGHT LEG PAIN.RATING PAIN VAS 2/10. OVERALL DOING WELL. PAIN THE PATIENT DESCRIBES THE PAIN... CURRENT MEDICATIONS TAKING ASACOL 800 MG TABLET DELAYED RELEASE 1 TABLET ORALLY TWICE A DAY TAKING BACLOFEN 20 MG TABLET 1 TABLET ORALLY DAILY TAKING DEPAKOTE ER 500 MG TABLET EXTENDED RELEASE 24 HOUR 1 TABLET ORALLY TWICE A DAY TAKING PROVIGIL 100 MG TABLET 1 TABLET ORALLY ONCE A DAY TAKING TECFIDERA 240 MG TABLET 1 TABLET ORALLY TWICE A DAY TAKING VITAMIN D-3 2000 UNITS CAPSULE 1 CAPSULE ORALLY ONCE A DAY TAKING VITAMIN E 1000 UNIT CAPSULE 1 CAPSULE ORALLY ONCE A DAY TAKING IBUPROFEN 600 MG TABLET 1 TABLET ORALLY DAILY PRN TAKING PROLIA 60 MG/ML SOLUTION DIRECTED SUBCUTANEOUS Q SIX MONTHS TAKING CALCIUM 600 + D 600-400 MG-UNIT TABLET 1 TABLET ORALLY DAILY TAKING VOLTAREN 1 % GEL DIRECTED TRANSDERMAL APPLY SMALL AMOUNT TO AFFECTED AREA RIGHT ANKLE Q8H PRN PAIN TAKING MAXALT 10 MG TABLET 1 TABLET ORALLY DAILY NEEDED FOR MIGRAINES MAXIUM MIGRAINES A MONTH =2 TAKING NEURONTIN 300 MG CAPSULE 1 CAPSULE ORALLY BID NOT-TAKING CEPHALEXIN 500 MG CAPSULE 1 CAPSULE ORALLY EVERY 12 HRS NOT-TAKING PATANOL 0.1 % SOLUTION 1 DROP INTO BOTH EYES OPHTHALMIC TWICE A DAY NEEDED MEDICATION LIST REVIEWED AND RECONCILED WITH THE PATIENT PAST MEDICAL HISTORY MULTIPLE SCLEROSIS (DR. WHITING) SEIZURES- LAST SEIZURE WAS 30 YEARS AGO ULCERATIVE COLITIS (DR. GRANDA) CARPAL TUNNEL OSTEOPOROSIS; STARTED PROLIA 12/29 SMOKER NON-TOXIC MULTINODULAR GOITER STABLE ON US 2008, 2013, 09/28 BL CARPAL TUNNEL - NO SURGERY ECHO 2004 MILD GLOBAL HYPOKINESIS LV EF 50% RT SCIATICA 2018 MINI BOWEL PERFORATION 2002 LOW BACK PAIN RIGHT LEG PAIN ALLERGIES FLAGYL: RED RASH - ALLERGY SOCIAL HISTORY GENERAL: TOBACCO USE ARE YOU A:CURRENT SMOKER ARE YOU INTERESTED IN QUITTING?NOT READY TO QUIT PT DOES NOT WANT SMOKING CESSATION HANDOUT COUNSELED THE PATIENT ON SMOKING EFFECTS, EDUCATION [id number]/24/2021 HOW MANY CIGARETTES A DAY DO YOU SMOKE?6-10 HOW SOON AFTER YOU WAKE UP DO YOU SMOKE YOUR FIRST CIGARETTE?AFTER 60 MIN HOW OFTEN DO YOU SMOKE CIGARETTES?EVERY DAY PATIENT COUNSELED ON THE DANGERS OF TOBACCO USE AND URGED TO QUIT:03/18/2021 VAPORNO E-CIGARETTENO LATEX QUESTIONNAIRE LATEX ALLERGY : HAVE YOU EVER DEVELOPED ANY TYPE OF REACTION AFTER HANDLING LATEX PRODUCTS SUCH RUBBER GLOVES, CONDOMS, DIAPHRAGMS, BALLOONS, SOCKS, OR UNDERWEAR?NO LATEX ALLERGY : HAVE YOU EVER DEVELOPED ANY TYPE OF REACTION DURING OR AFTER DENTAL APPOINTMENT, VAGINAL/RECTAL EXAMINATION, SURGICAL PROCEDURE, OR ANY OTHER EXPOSURE?NO LATEX RISK : HAVE YOU EVER HAD ANY DIFFICULTY BREATHING OR HIVES AFTER EATING OR HANDLING ANY FRUITS, OR VEGETABLES; SUCH KIWI, BANANAS, STONE FRUITS, OR CHESTNUTSNO LATEX RISK : DO YOU HAVE A PREVIOUS PERSONAL HISTORY OF MORE THAN NINE SURGERIES, SPINA BIFIDA, OR REPEATED CATHERIZATIONS? NO LATEX RISK : ARE YOU FREQUENTLY EXPOSED TO LATEX PRODUCTS IN YOUR OCCUPATION?NO DATE ASKED : 04/04/2021 ALCOHOL USE: YES, VERY RARELY. LUNG CANCER SCREENING SMOKING STATUS:CURRENT SMOKER IS THE PATIENT BETWEEN THE AGE OF 55 AND 77?YES HAS THE PATIENT EVER BEEN DIAGNOSED WITH LUNG CANCER?NO ALCOHOL SCREENING DID YOU HAVE A DRINK CONTAINING ALCOHOL IN THE PAST YEAR?NO POINTS0 INTERPRETATIONNEGATIVE RECREATIONAL DRUG USE DRUG USE?NO CAFFEINE NONE. SEXUAL HX HAD SEX IN THE LAST 12 MONTHS (VAGINAL, ORAL, OR ANAL)?YES WITHMEN ONLY LMP:POST MENOPAUSE HAVE YOU EVER HAD AN STD?NO HIV / HEP-C SCREENING HIV TEST OFFERED TO PATIENT:YES DATE OFFERED:02/14/2019 TEST ACCEPTED:NO REASON:PATIENT DECLINED BROCHURE PROVIDED TO PATIENTYES MORMON [id number] [employer]. 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 DIET: NO HX EATING DISORDERS. EXERCISE: NO REGULAR EXERCISE. MARITAL STATUS: . OTHERS AT HOME: SPOUSE, YOUNGEST DAUGHTER. - PFS REFERRAL NEEDED?NO CLERGY REFERRAL NEEDED?NO PUBLIC HEALTH REFERRAL NEEDED?NO WAS THE PROVIDER NOTIFIED OF ANY PERTINENT INFO?YES N/A HAS THE PATIENT BEEN EDUCATED REGARDING HIS/HER PLAN OF CARE?YES HAS THE PATIENT BEEN EDUCATED REGARDING PAIN, THE RISK FOR PAIN, THE IMPORTANCE OF EFFECTIVE PAIN MANAGEMENT, AND THE PAIN ASSESSMENT PROCESS?YES ADVANCE DIRECTIVE ADVANCE DIRECTIVE DISCUSSED WITH PATIENT:YES HCP: 1. -STACEY [phone] 2. MARIA DEL ROSARIO CRUZ- DAUGHTER [phone] REVIEW OF SYSTEMS CONSTITUTIONAL: ANY RECENT FEVER NO . CHILLS NO . WEIGHT CHANGE OF UNKNOWN REASONS NO . GASTROENTEROLOGY: NEW UNEXPLAINABLE CHANGES IN BOWEL CONTROL NO . CONSTIPATION NO . GENITOURINARY: ANY NEW CHANGE IN BLADDER CONTROL? NO . NEUROLOGY: NEW ONSET DIZZINESS OR NEUROLOGICAL CHANGES NOT MENTIONED NO . NEW NUMBNESS OR PAIN PATTERNS NOT MENTIONED AND PERTINENT TO TODAY'S VISIT NO . CARDIOLOGY: NEW CHEST PRESSURE NO . PATIENT DENIES NO . RESPIRATORY: UNEXPLAINABLE COUGH NO . NEW SHORTNESS OF BREATH NO . VITAL SIGNS WT 128.4 LBS, HT 66.5 IN, BMI 20.41 INDEX, BP 101/51 MM HG, HR 76 /MIN, RR 18 /MIN, TEMP 97.6 F, OXYGEN SAT % 95%, SAFE IN ENV? (Y/N) YES, NA INITIALS AW 1001T.MOHAN MA. EXAMINATION GENERAL EXAMINATION: GENERALAWAKE,ALERT ,PLEASANT . PSYCHAFFECT NORMAL . LUNGS:LUNG WEIR ARE CLEAR TO AUSCULTATION BILATERALLY. GOOD MOVEMENT OF AIR . HEART:S1, S2 IN A REGULAR RATE AND RHYTHM. NO SIGNIFICANT MURMURS, RUBS OR GALLOPS NOTED . ASSESSMENTS OTHER CHRONIC PAIN - G89.29 (PRIMARY) INTERVERTEBRAL DISC DISORDER WITH RADICULOPATHY OF LUMBOSACRAL REGION - M51.17 TREATMENT OTHER CHRONIC PAIN PAIN PROCEDURE LOGDATE OF PROCEDURE1PROCEDURE:LUMBAR EPIDURAL STEROID INJECTIONAMOUNT OF PRE SEDATEVALIUM 5MG, NORCO 5-325MG, BENADRYL 25MGRESULT:MARKED REDUCTION IN PAIN PROCEDURE CODES FA211 ESTABILISHED PATIENT [facility] CHARGE DISPOSITION & COMMUNICATION FOLLOW UP 3 MONTHS (REASON: DOES WELL LESI/RIGHT LBP/RIGHT LEG PAIN) ELECTRONICALLY SIGNED BY JULIAN MENDOZA ON 04/05/2021 AT 04:01 PM EDT DISCLAIMER : THIS IS A VISIT SUMMARY EXTRACTED FROM THE [employer] CHART. IT IS NOT A COPY OF THE [employer] PROGRESS NOTE. MTDD
== END ==
LOC: M PAIN 10:00
PROVIDERS: ATTEND Nurse Practitioner Family
DX: M51.17 Intervertebral disc disorders with radiculopathy, lumbosacral region (principal); G89.29 Other chronic pain; G35 Multiple sclerosis; F17.210 Nicotine dependence, cigarettes, uncomplicated; Z88.1 Allergy status to other antibiotic agents; Z79.899 Other long term (current) drug therapy

== ENCOUNTER → 2021-04-10 | Outpatient (CLI) | payer MEDICARE ==
[2021-04-10 09:43] LABS: BASO # 0.1 10^3/uL (0.0-0.2); EOS # 0.3 10^3/uL (0.0-0.5); EOS % 5.4 % (0.0-3.0); LYMPH # 1.3 10^3/uL (1.5-5.0); LYMPH % 23.1 % (24.0-44.0); MEAN CORPUSCULAR HEMOGLOBIN 30.1 pg (27.0-33.0); MEAN CORPUSCULAR HGB CONC 32.5 g/dl (32.0-36.5); MEAN CORPUSCULAR VOLUME 92.6 fl (80.0-96.0); MONO # 0.6 10^3/uL (0.0-0.8); NEUTROPHILS # 3.4 10^3/uL (1.5-8.5); NEUTROPHILS % 60.2 % (36.0-66.0); PLATELET COUNT, AUTOMATED 249 10^3/uL (150-450); RED BLOOD COUNT 4.32 10^6/uL (4.00-5.40); WHITE BLOOD COUNT 5.7 10^3/uL (4.0-10.0)
[2021-04-10 10:12] LABS: ALBUMIN 3.9 GM/DL (3.2-5.2); ALT/SGPT 14 U/L (12-78); BILIRUBIN,TOTAL 0.3 MG/DL (0.2-1.0); BLOOD UREA NITROGEN 26 MG/DL (7-18); CALCIUM LEVEL 10.1 MG/DL (8.8-10.2); CARBON DIOXIDE LEVEL 33 MEQ/L (21-32); CHLORIDE LEVEL 107 MEQ/L (98-107); CREATININE FOR GFR 0.44 MG/DL (0.55-1.30); GLOMERULAR FILTRATION RATE > 60.0 (>45); GLUCOSE, FASTING 96 MG/DL (70-100); SODIUM LEVEL 144 MEQ/L (136-145); TOTAL PROTEIN 6.9 GM/DL (6.4-8.2)
[2021-04-12 10:35] LABS: TOTAL 25(OH) VITAMIN D 69.9 NG/ML (30.0-100.0)
== END ==
LOC: M LAB 09:16
PROVIDERS: ATTEND Psychiatry & Neurology Neurology
DX: G35 Multiple sclerosis (principal); Z79.899 Other long term (current) drug therapy

== ENCOUNTER → 2021-04-25 | Outpatient (CLI) | payer MEDICARE ==
[2021-04-25 14:40] LABS: FREE T4 0.87 NG/DL (0.76-1.46); THYROID STIMULATING HORMONE 0.916 uIU/ML (0.358-3.740)
--- NOTE | 2021-04-25 16:34 | REP ---
INDICATION: MUTLINODULAR GOITER. COMPARISON: Multiple TECHNIQUE: Thyroid ultrasonography FINDINGS: The right lobe of the thyroid gland measures 7 x 1.8 x 1.7 cm and the left lobe measures 4.9 x 1.9 x 1.2 cm. The isthmus measures 4 mm. There are 3 solid nodules in left lobe which are essentially unchanged compared to the prior exam. The gotten slightly larger by 1 or 2 mm but there echo-pattern is stable. The nodule seen within or just to the left of the isthmus has gotten slightly larger but its echo pattern is unchanged. IMPRESSION: Slight increase in the size of the nodules as described above. The significance of this slight change in the size of the nodules is uncertain. <Electronically signed by Cuate Leiva > 04/25/21 [id number]
== END ==
LOC: M RAD 13:27
PROVIDERS: ATTEND Family Medicine
DX: E04.2 Nontoxic multinodular goiter (principal)

== ENCOUNTER → 2021-05-04 | Outpatient (CLI) | payer MEDICARE ==
--- NOTE | 2021-05-06 06:37 | REPMRS ---
Patient History The patient states she has not had a clinical breast exam in over a year. Family history of unknown cancer in maternal grandfather. No breast complaints today Patient signed the MRS sheet Patient has had both Moderna vaccines in the left arm-does not know dates Priors on PACS Patient Identification Verified Digital Woman Screen Mammo: May 04, 2021 - Exam #: [id number] Bilateral CC and MLO view(s) were taken. Technologist: Dayana Flanagan, Technologist Prior study comparison: May 04, 2020, bilateral digital woman screen mammo performed at [facility]. February 14, 2019, bilateral digital woman screen mammo performed at [facility]. February 07, 2018, digital woman screen mammo performed at [facility]. FINDINGS: The breast tissue is heterogeneously dense. This may lower the sensitivity of mammography. The Volpara volumetric breast density category is: C. There is a moderate amount of heterogeneously dense fibroglandular tissue which is fairly symmetric. There is no interval development of dominant mass, architectural distortion, or grouped microcalcification typical of malignancy. There has been no change in the appearance of the mammogram from the prior studies. 3-D tomosynthesis shows no additional findings. Assessment: BI-RADS/ACR category 1 mammogram. Negative Mammogram. Recommendation Routine screening mammogram of both breasts in 1 year (for women over age 40). This patient's [facility] Lifetime Breast Cancer RIsk is estimated at 7.0 %. This mammogram was interpreted with the aid of an FDA-approved computer-aided dectection system. Electronically Signed By: Guanaco Renae MD 05/04/21 [id number]
== END ==
LOC: M WHC 09:54
PROVIDERS: ATTEND Nurse Practitioner Women's Health
DX: Z12.31 Encounter for screening mammogram for malignant neoplasm of breast (principal); Z80.8 Family history of malignant neoplasm of other organs or systems

== ENCOUNTER → 2021-07-29 | Outpatient (CLI) | payer MEDICARE | LOC: M PAIN 10:15 | PROVIDERS: ATTEND Anesthesiology | DX: M51.16 Intervertebral disc disorders with radiculopathy, lumbar region (principal); M48.061 Spinal stenosis, lumbar region without neurogenic claudication; G89.29 Other chronic pain; G35 Multiple sclerosis; Z88.1 Allergy status to other antibiotic agents; Z79.899 Other long term (current) drug therapy ==

== ENCOUNTER → 2022-01-19 | Outpatient (CLI) | payer MEDICARE | LOC: M PAIN 10:15 | PROVIDERS: ATTEND Nurse Practitioner Family | DX: M51.16 Intervertebral disc disorders with radiculopathy, lumbar region (principal); G89.29 Other chronic pain; G35 Multiple sclerosis; F17.210 Nicotine dependence, cigarettes, uncomplicated; Z88.1 Allergy status to other antibiotic agents; Z79.899 Other long term (current) drug therapy ==

== ENCOUNTER → 2022-02-27 | Outpatient (CLI) | payer MEDICARE | LOC: M PAIN 10:00 | PROVIDERS: ATTEND Nurse Practitioner Family | DX: M51.16 Intervertebral disc disorders with radiculopathy, lumbar region (principal); G89.29 Other chronic pain; G35 Multiple sclerosis; F17.210 Nicotine dependence, cigarettes, uncomplicated; Z88.1 Allergy status to other antibiotic agents; Z79.899 Other long term (current) drug therapy ==

== ENCOUNTER → 2022-03-01 | Outpatient (CLI) | payer MEDICARE | LOC: M RAD 10:24 | PROVIDERS: ATTEND Nurse Practitioner Family | DX: M51.16 Intervertebral disc disorders with radiculopathy, lumbar region (principal); M48.061 Spinal stenosis, lumbar region without neurogenic claudication ==

== ENCOUNTER → 2022-04-17 | Outpatient (CLI) | payer MEDICARE | LOC: M PAIN 10:30 | PROVIDERS: ATTEND Nurse Practitioner Family | DX: M51.16 Intervertebral disc disorders with radiculopathy, lumbar region (principal); G89.29 Other chronic pain; G35 Multiple sclerosis; F17.210 Nicotine dependence, cigarettes, uncomplicated; Z88.1 Allergy status to other antibiotic agents; Z79.899 Other long term (current) drug therapy ==

== ENCOUNTER → 2022-04-27 | Outpatient (REF) | payer MEDICARE | LOC: M SFHCADAM 09:10 | PROVIDERS: ATTEND Family Medicine | DX: M81.0 Age-related osteoporosis without current pathological fracture (principal); E04.2 Nontoxic multinodular goiter; K51.90 Ulcerative colitis, unspecified, without complications; G43.909 Migraine, unspecified, not intractable, without status migrainosus; Z13.1 Encounter for screening for diabetes mellitus ==

== ENCOUNTER → 2022-05-03 | Outpatient (CLI) | payer MEDICARE ==
[2022-05-03 08:25] LABS: HEMATOCRIT 38.5 % (36.0-47.0); HEMOGLOBIN 12.9 g/dl (12.0-15.5); MEAN CORPUSCULAR HEMOGLOBIN 31.2 pg (27.0-33.0); MEAN CORPUSCULAR HGB CONC 33.5 g/dl (32.0-36.5); PLATELET COUNT, AUTOMATED 208 10^3/uL (150-450); RED BLOOD COUNT 4.14 10^6/uL (4.00-5.40); WHITE BLOOD COUNT 4.4 10^3/uL (4.0-10.0)
[2022-05-03 08:57] LABS: ALBUMIN 3.7 GM/DL (3.2-5.2); ALT/SGPT 12 U/L (12-78); BILIRUBIN,TOTAL 0.3 MG/DL (0.2-1.0); BLOOD UREA NITROGEN 28 MG/DL (7-18); CALCIUM LEVEL 9.5 MG/DL (8.8-10.2); CARBON DIOXIDE LEVEL 28 MEQ/L (21-32); CHLORIDE LEVEL 111 MEQ/L (98-107); CHOLESTEROL LEVEL 162 MG/DL (<200); CHOLESTEROL RISK RATIO 2.281 (<5); CREATININE FOR GFR 0.47 MG/DL (0.55-1.30); FREE T4 0.82 NG/DL (0.76-1.46); GLOMERULAR FILTRATION RATE > 60.0 (>45); GLUCOSE, FASTING 91 MG/DL (70-100); HDL CHOLESTEROL 71 MG/DL (>40); LDL CHOLESTEROL 81 MG/DL (<100); NON-HDL-C 91 MG/DL; SODIUM LEVEL 143 MEQ/L (136-145); TOTAL PROTEIN 6.7 GM/DL (6.4-8.2); TRIGLYCERIDES LEVEL 48 MG/DL (<150)
[2022-05-03 10:08] LABS: HEMOGLOBIN A1c 5.2 %
[2022-05-03 12:27] LABS: TOTAL 25(OH) VITAMIN D 59.9 NG/ML (30.0-100.0)
== END ==
LOC: M LAB 07:23
PROVIDERS: ATTEND Family Medicine
DX: K51.90 Ulcerative colitis, unspecified, without complications (principal); Z13.1 Encounter for screening for diabetes mellitus; E04.2 Nontoxic multinodular goiter; G43.909 Migraine, unspecified, not intractable, without status migrainosus; M81.0 Age-related osteoporosis without current pathological fracture; Z79.899 Other long term (current) drug therapy

== ENCOUNTER → 2022-05-03 | Outpatient (CLI) | payer MEDICARE ==
[2022-05-03 08:25] LABS: BASO % 0.9 % (0.0-1.0); EOS # 0.1 10^3/uL (0.0-0.5); HEMATOCRIT 39.9 % (36.0-47.0); LYMPH # 1.7 10^3/uL (1.5-5.0); LYMPH % 38.6 % (24.0-44.0); MEAN CORPUSCULAR HEMOGLOBIN 30.3 pg (27.0-33.0); MEAN CORPUSCULAR HGB CONC 32.6 g/dl (32.0-36.5); MONO # 0.5 10^3/uL (0.0-0.8); MONO % 11.4 % (2.0-8.0); NEUTROPHILS % 45.9 % (36.0-66.0); PLATELET COUNT, AUTOMATED 214 10^3/uL (150-450); RED BLOOD COUNT 4.29 10^6/uL (4.00-5.40); WHITE BLOOD COUNT 4.4 10^3/uL (4.0-10.0)
[2022-05-03 08:49] LABS: BLOOD UREA NITROGEN 28 MG/DL (7-18); CARBON DIOXIDE LEVEL 27 MEQ/L (21-32); CHLORIDE LEVEL 111 MEQ/L (98-107); CREATININE FOR GFR 0.46 MG/DL (0.55-1.30); GLOMERULAR FILTRATION RATE > 60.0 (>45); GLUCOSE, FASTING 91 MG/DL (70-100); POTASSIUM SERUM 5.1 MEQ/L (3.5-5.1); SODIUM LEVEL 144 MEQ/L (136-145)
[2022-05-03 08:50] LABS: ALBUMIN 3.7 GM/DL (3.2-5.2); ALT/SGPT 13 U/L (12-78); BILIRUBIN,TOTAL 0.3 MG/DL (0.2-1.0); CALCIUM LEVEL 9.6 MG/DL (8.8-10.2); TOTAL PROTEIN 6.5 GM/DL (6.4-8.2)
[2022-05-03 12:56] LABS: TOTAL 25(OH) VITAMIN D 62.4 NG/ML (30.0-100.0)
== END ==
LOC: M LAB 07:21
PROVIDERS: ATTEND Psychiatry & Neurology Neurology
DX: G35 Multiple sclerosis (principal)

== ENCOUNTER → 2022-07-13 | Outpatient (CLI) | payer MEDICARE | LOC: M RAD 08:08 | PROVIDERS: ATTEND Family Medicine | DX: E04.2 Nontoxic multinodular goiter (principal) ==

== ENCOUNTER → 2022-07-21 | Outpatient (REF) | payer MEDICARE | LOC: M PLALAB 12:00 | PROVIDERS: ATTEND Nurse Practitioner Family | DX: Z12.4 Encounter for screening for malignant neoplasm of cervix (principal) | CPT/HCPCS: 87624; G0123 ==

== ENCOUNTER → 2022-07-21 | Outpatient (CLI) | payer MEDICARE | LOC: M WHC 09:18 | PROVIDERS: ATTEND Nurse Practitioner Family | DX: Z12.31 Encounter for screening mammogram for malignant neoplasm of breast (principal) ==

== ENCOUNTER → 2022-10-08 | Outpatient (CLI) | payer MEDICARE | LOC: M LABSMTC 10:27 | PROVIDERS: ATTEND Anesthesiology | DX: Z20.828 Contact with and (suspected) exposure to other viral communicable diseases (principal); Z11.59 Encounter for screening for other viral diseases ==

== ENCOUNTER → 2022-10-10 | Outpatient (CLI) | payer MEDICARE ==
[~2022-10-10] MED LIST changes: +diazePAM 2 MG TAB As Ordered ONE; -diazePAM 5MG TABLET As Ordered ONE
== END ==
LOC: M PAIN 10:00
PROVIDERS: ATTEND Anesthesiology
DX: M51.16 Intervertebral disc disorders with radiculopathy, lumbar region (principal); G89.29 Other chronic pain; G35 Multiple sclerosis; F17.210 Nicotine dependence, cigarettes, uncomplicated; Z88.1 Allergy status to other antibiotic agents; Z79.899 Other long term (current) drug therapy
CPT/HCPCS: 62323; J1030; Q9967

== ENCOUNTER → 2022-11-07 | Outpatient (CLI) | payer MEDICARE | LOC: M PAIN 09:15 | PROVIDERS: ATTEND Nurse Practitioner Family | DX: M51.16 Intervertebral disc disorders with radiculopathy, lumbar region (principal); G89.29 Other chronic pain; G35 Multiple sclerosis; F17.210 Nicotine dependence, cigarettes, uncomplicated; Z88.1 Allergy status to other antibiotic agents; Z79.899 Other long term (current) drug therapy ==

== ENCOUNTER → 2022-12-25 | Outpatient (CLI) | payer MEDICARE ==
[2022-12-25 11:13] LABS: BLOOD UREA NITROGEN 28 MG/DL (9-23); CALCIUM LEVEL 9.6 MG/DL (8.3-10.6); CARBON DIOXIDE LEVEL 32 MMOL/L (20-31); CHLORIDE LEVEL 110 MMOL/L (98-107); CREATININE FOR GFR 0.45 MG/DL (0.55-1.30); GLOMERULAR FILTRATION RATE > 60.0 (>45); GLUCOSE, FASTING 90 MG/DL (74-106); POTASSIUM SERUM 4.4 MMOL/L (3.5-5.1); SODIUM LEVEL 142 MMOL/L (136-145)
== END ==
LOC: M LAB 10:06
PROVIDERS: ATTEND Internal Medicine Gastroenterology
DX: K51.90 Ulcerative colitis, unspecified, without complications (principal)

== ENCOUNTER → 2023-02-05 | Outpatient (CLI) | payer MEDICARE | LOC: M PAIN 10:00 | PROVIDERS: ATTEND Nurse Practitioner Family | DX: M51.16 Intervertebral disc disorders with radiculopathy, lumbar region (principal); G89.29 Other chronic pain; G35 Multiple sclerosis; F17.210 Nicotine dependence, cigarettes, uncomplicated; Z88.1 Allergy status to other antibiotic agents; Z79.899 Other long term (current) drug therapy ==

== ENCOUNTER → 2023-04-06 | Outpatient (CLI) | payer MEDICARE | LOC: M PLAIMG 08:36 | PROVIDERS: ATTEND Nurse Practitioner Family | DX: M51.16 Intervertebral disc disorders with radiculopathy, lumbar region (principal) ==

== ENCOUNTER → 2023-04-27 | Outpatient (CLI) | payer MEDICARE | LOC: M PAIN 10:45 | PROVIDERS: ATTEND Nurse Practitioner Family | DX: M51.16 Intervertebral disc disorders with radiculopathy, lumbar region (principal); G89.29 Other chronic pain; G35 Multiple sclerosis; F17.210 Nicotine dependence, cigarettes, uncomplicated; Z88.1 Allergy status to other antibiotic agents; Z79.899 Other long term (current) drug therapy ==

== ENCOUNTER → 2023-05-02 | Outpatient (REF) | payer MEDICARE ==
[2023-05-02 14:09] LABS: BASO # 0.1 10^3/uL (0.0-0.2); BASO % 0.9 % (0.0-1.0); EOS # 0.1 10^3/uL (0.0-0.5); EOS % 1.3 % (0.0-3.0); HEMATOCRIT 42.1 % (36.0-47.0); LYMPH # 1.6 10^3/uL (1.5-5.0); LYMPH % 30.7 % (24.0-44.0); MEAN CORPUSCULAR HEMOGLOBIN 31.3 pg (27.0-33.0); MEAN CORPUSCULAR HGB CONC 33.3 g/dl (32.0-36.5); MEAN CORPUSCULAR VOLUME 94.2 fl (80.0-96.0); MONO # 0.5 10^3/uL (0.0-0.8); MONO % 8.7 % (2.0-8.0); NEUTROPHILS # 3.1 10^3/uL (1.5-8.5); PLATELET COUNT, AUTOMATED 220 10^3/uL (150-450); RED BLOOD COUNT 4.47 10^6/uL (4.00-5.40); WHITE BLOOD COUNT 5.3 10^3/uL (4.0-10.0)
[2023-05-02 15:45] LABS: ALBUMIN 4.1 G/DL (3.2-5.2); ALKALINE PHOSPHATASE 48 U/L (46-116); ALT/SGPT < 9 U/L (7.0-40); AST/SGOT 10 U/L (<34); BILIRUBIN,DIRECT 0.2 MG/DL (<0.4); BILIRUBIN,TOTAL 0.5 MG/DL (0.3-1.2); TOTAL PROTEIN 6.5 G/DL (5.7-8.2)
== END ==
LOC: M LABDRWAD 14:05
PROVIDERS: ATTEND Psychiatry & Neurology Neurology
DX: G35 Multiple sclerosis (principal); R56.9 Unspecified convulsions

== ENCOUNTER → 2023-05-02 | Outpatient (REF) | payer MEDICARE ==
[2023-05-02 14:00] LABS: HEMATOCRIT 42.5 % (36.0-47.0); HEMOGLOBIN 13.9 g/dl (12.0-15.5); MEAN CORPUSCULAR HEMOGLOBIN 30.7 pg (27.0-33.0); MEAN CORPUSCULAR HGB CONC 32.7 g/dl (32.0-36.5); MEAN CORPUSCULAR VOLUME 93.8 fl (80.0-96.0); PLATELET COUNT, AUTOMATED 220 10^3/uL (150-450); RED BLOOD COUNT 4.53 10^6/uL (4.00-5.40); WHITE BLOOD COUNT 5.3 10^3/uL (4.0-10.0)
[2023-05-02 14:02] LABS: FREE T4 0.96 NG/DL (0.89-1.76)
[2023-05-02 14:04] LABS: THYROID STIMULATING HORMONE 1.239 uIU/ML (0.55-4.78)
[2023-05-02 14:07] LABS: ALBUMIN 4.1 G/DL (3.2-5.2); ALKALINE PHOSPHATASE 47 U/L (46-116); ALT/SGPT < 9 U/L (7.0-40); AST/SGOT < 8 U/L (<34); BILIRUBIN,TOTAL 0.5 MG/DL (0.3-1.2); BLOOD UREA NITROGEN 20 MG/DL (9-23); CALCIUM LEVEL 9.7 MG/DL (8.3-10.6); CARBON DIOXIDE LEVEL 31 MMOL/L (20-31); CHLORIDE LEVEL 106 MMOL/L (98-107); CHOLESTEROL LEVEL 155 MG/DL (<200); CHOLESTEROL RISK RATIO 2.17 (<5); CREATININE FOR GFR 0.47 MG/DL (0.55-1.30); GLOMERULAR FILTRATION RATE > 60.0 (>45); GLUCOSE, FASTING 86 MG/DL (74-106); HDL CHOLESTEROL 71.3 MG/DL (>40); LDL CHOLESTEROL 71.1 MG/DL (<100); NON-HDL-C 83.7 MG/DL; POTASSIUM SERUM 5.1 MMOL/L (3.5-5.1); SODIUM LEVEL 141 MMOL/L (136-145); TOTAL PROTEIN 6.6 G/DL (5.7-8.2); TRIGLYCERIDES LEVEL 63 MG/DL (<150)
[2023-05-02 15:41] LABS: HEMOGLOBIN A1c 5.2 % (4.0-6.0)
== END ==
LOC: M SFHCADAM 10:14
PROVIDERS: ATTEND Family Medicine
DX: Z13.1 Encounter for screening for diabetes mellitus (principal); E04.2 Nontoxic multinodular goiter; G35 Multiple sclerosis; Z79.899 Other long term (current) drug therapy

== ENCOUNTER → 2023-05-11 | Outpatient (REF) | payer MEDICARE | LOC: M SFHCADAM 08:43 | PROVIDERS: ATTEND Family Medicine | DX: Z53.9 Procedure and treatment not carried out, unspecified reason (principal) ==

== ENCOUNTER → 2023-05-27 | Outpatient (CLI) | payer MEDICARE ==
[2023-05-27 10:00] LABS: BASO % 0.9 % (0.0-1.0); EOS # 0.1 10^3/uL (0.0-0.5); EOS % 2.4 % (0.0-3.0); HEMATOCRIT 40.5 % (36.0-47.0); HEMOGLOBIN 13.5 g/dl (12.0-15.5); LYMPH # 1.5 10^3/uL (1.5-5.0); LYMPH % 32.2 % (24.0-44.0); MEAN CORPUSCULAR HEMOGLOBIN 31.3 pg (27.0-33.0); MEAN CORPUSCULAR HGB CONC 33.3 g/dl (32.0-36.5); MONO # 0.6 10^3/uL (0.0-0.8); MONO % 12.4 % (2.0-8.0); NEUTROPHILS # 2.4 10^3/uL (1.5-8.5); NEUTROPHILS % 51.9 % (36.0-66.0); PLATELET COUNT, AUTOMATED 201 10^3/uL (150-450); RED BLOOD COUNT 4.31 10^6/uL (4.00-5.40); WHITE BLOOD COUNT 4.5 10^3/uL (4.0-10.0)
== END ==
LOC: M LAB 09:21
PROVIDERS: ATTEND Psychiatry & Neurology Neurology
DX: G35 Multiple sclerosis (principal)

== ENCOUNTER → 2023-06-15 | Outpatient (CLI) | payer MEDICARE ==
[~2023-06-15] MED LIST changes: -ISOVUE-M 300 61% 15ML VIAL As Ordered ONE; -LIDOCAINE 1% SDV 30ML VIAL As Ordered ONE; -NORCO, ANEXSIA 5/325MG TABLET (HYDROcodone/ACETAMINOPHEN) As Ordered ONE; +PROHANCE 279.3MG/ML 5ML VIAL ONE; -diazePAM 2 MG TAB As Ordered ONE; -diphenhydrAMINE 25MG CAP As Ordered ONE; -methylPREDNISolone SUSP 40MG/ML 1ML VIAL (DEPO MEDROL) As Ordered ONE
== END ==
LOC: M PLAIMG 08:20
DX: G35 Multiple sclerosis (principal)
CPT/HCPCS: 70553; 72156; A9576

== ENCOUNTER → 2023-06-26 | Outpatient (CLI) | payer MEDICARE ==
[~2023-06-26] MED LIST changes: +ISOVUE-M 300 61% 15ML VIAL As Ordered ONE; +LIDOCAINE 1% SDV 30ML VIAL As Ordered ONE; +NORCO, ANEXSIA 5/325MG TABLET (HYDROcodone/ACETAMINOPHEN) As Ordered ONE; -PROHANCE 279.3MG/ML 5ML VIAL ONE; +diazePAM 2 MG TAB As Ordered ONE; +diphenhydrAMINE 25MG CAP As Ordered ONE; +methylPREDNISolone SUSP 40MG/ML 1ML VIAL (DEPO MEDROL) As Ordered ONE
== END ==
LOC: M PAIN 11:00
PROVIDERS: ATTEND Anesthesiology
DX: M51.17 Intervertebral disc disorders with radiculopathy, lumbosacral region (principal); G89.29 Other chronic pain; G35 Multiple sclerosis; F17.210 Nicotine dependence, cigarettes, uncomplicated; Z88.1 Allergy status to other antibiotic agents; Z79.899 Other long term (current) drug therapy
CPT/HCPCS: 62323; J1030; Q9967

== ENCOUNTER → 2023-07-30 | Outpatient (REF) | payer MEDICARE | LOC: M LAB REF 18:18 | PROVIDERS: ATTEND Internal Medicine Endocrinology, Diabetes & Metabolism | DX: E04.2 Nontoxic multinodular goiter (principal) ==

== ENCOUNTER → 2023-10-18 | Outpatient (CLI) | payer MEDICARE | LOC: M PAIN 09:00 | PROVIDERS: ATTEND Nurse Practitioner Family | DX: M51.16 Intervertebral disc disorders with radiculopathy, lumbar region (principal); G89.29 Other chronic pain; F17.210 Nicotine dependence, cigarettes, uncomplicated; Z88.1 Allergy status to other antibiotic agents; Z79.899 Other long term (current) drug therapy ==

== ENCOUNTER → 2023-12-11 | Outpatient (CLI) | payer MEDICARE | LOC: M PAIN 15:30 | PROVIDERS: ATTEND Nurse Practitioner Family | DX: M51.16 Intervertebral disc disorders with radiculopathy, lumbar region (principal); G89.29 Other chronic pain; G35 Multiple sclerosis; M81.0 Age-related osteoporosis without current pathological fracture; M79.661 Pain in right lower leg; F17.210 Nicotine dependence, cigarettes, uncomplicated; Z79.899 Other long term (current) drug therapy; Z88.1 Allergy status to other antibiotic agents ==

== ENCOUNTER → 2024-02-14 | Outpatient (CLI) | payer MEDICARE | LOC: M PAIN 11:00 | PROVIDERS: ATTEND Anesthesiology | DX: M51.16 Intervertebral disc disorders with radiculopathy, lumbar region (principal); G89.29 Other chronic pain; G35 Multiple sclerosis; M81.0 Age-related osteoporosis without current pathological fracture; K51.90 Ulcerative colitis, unspecified, without complications; F17.210 Nicotine dependence, cigarettes, uncomplicated; Z79.899 Other long term (current) drug therapy; Z88.1 Allergy status to other antibiotic agents | CPT/HCPCS: 62323; J1010; Q9967 ==

== ENCOUNTER → 2024-03-14 | Outpatient (CLI) | payer MEDICARE | LOC: M PAIN 14:45 | PROVIDERS: ATTEND Nurse Practitioner Family | DX: M51.17 Intervertebral disc disorders with radiculopathy, lumbosacral region (principal); G89.29 Other chronic pain; G35 Multiple sclerosis; K51.90 Ulcerative colitis, unspecified, without complications; M81.0 Age-related osteoporosis without current pathological fracture; E04.2 Nontoxic multinodular goiter; F17.210 Nicotine dependence, cigarettes, uncomplicated; Z79.899 Other long term (current) drug therapy; Z88.1 Allergy status to other antibiotic agents ==

== ENCOUNTER → 2024-04-03 | Outpatient (REF) | payer MEDICARE | LOC: M SFHCWAGY 15:06 | PROVIDERS: ATTEND Nurse Practitioner Family | DX: Z12.4 Encounter for screening for malignant neoplasm of cervix (principal) | CPT/HCPCS: 87624; G0123 ==

== ENCOUNTER → 2024-04-03 | Outpatient (CLI) | payer MEDICARE | LOC: M WHC 09:41 | PROVIDERS: ATTEND Nurse Practitioner Family | DX: Z12.31 Encounter for screening mammogram for malignant neoplasm of breast (principal); Z13.820 Encounter for screening for osteoporosis; M85.851 Other specified disorders of bone density and structure, right thigh; M85.852 Other specified disorders of bone density and structure, left thigh; R92.333 Mammographic heterogeneous density, bilateral breasts ==

== ENCOUNTER → 2024-05-06 | Outpatient (REF) | payer MEDICARE ==
[2024-05-06 14:00] LABS: BASO % 0.8 % (0.0-1.0); EOS # 0.1 10^3/uL (0.0-0.5); HEMATOCRIT 42.1 % (36.0-47.0); HEMOGLOBIN 13.8 g/dl (12.0-15.5); LYMPH # 1.6 10^3/uL (1.5-5.0); LYMPH % 31.5 % (24.0-44.0); MEAN CORPUSCULAR HEMOGLOBIN 30.9 pg (27.0-33.0); MEAN CORPUSCULAR HGB CONC 32.8 g/dl (32.0-36.5); MEAN CORPUSCULAR VOLUME 94.2 fl (80.0-96.0); MONO # 0.5 10^3/uL (0.0-0.8); MONO % 10.4 % (2.0-8.0); NEUTROPHILS # 2.8 10^3/uL (1.5-8.5); NEUTROPHILS % 55.1 % (36.0-66.0); PLATELET COUNT, AUTOMATED 231 10^3/uL (150-450); RED BLOOD COUNT 4.47 10^6/uL (4.00-5.40)
[2024-05-06 14:08] LABS: ERYTHROCYTE SEDIMENTATION RATE < 1 mm/hr (0-30)
[2024-05-06 14:35] LABS: C REACTIVE PROTEIN QUANTITATIV < 0.40 MG/DL (<1.0); VALPROIC ACID (DEPAKOTE) 72.8 UG/ML (50.0-100.0)
[2024-05-06 14:37] LABS: ALKALINE PHOSPHATASE 48 U/L (46-116); ALT/SGPT 12 U/L (7.0-40); AST/SGOT < 8 U/L (<34); BILIRUBIN,TOTAL 0.4 MG/DL (0.3-1.2); BLOOD UREA NITROGEN 21 MG/DL (9-23); CALCIUM LEVEL 10.4 MG/DL (8.3-10.6); CARBON DIOXIDE LEVEL 31 MMOL/L (20-31); CHLORIDE LEVEL 107 MMOL/L (98-107); CHOLESTEROL LEVEL 165 MG/DL (<200); CHOLESTEROL RISK RATIO 2.17 (<5); CREATININE FOR GFR 0.41 MG/DL (0.55-1.30); FREE T4 1.19 NG/DL (0.89-1.76); GLOMERULAR FILTRATION RATE > 60.0 (>45); GLUCOSE, FASTING 69 MG/DL (74-106); HDL CHOLESTEROL 75.9 MG/DL (>40); LDL CHOLESTEROL 75.7 MG/DL (<100); NON-HDL-C 89.1 MG/DL; POTASSIUM SERUM 5.3 MMOL/L (3.5-5.1); PTH INTACT 13.1 PG/ML (18.5-88.0); SODIUM LEVEL 142 MMOL/L (136-145); THYROID STIMULATING HORMONE 0.863 uIU/ML (0.55-4.78); TOTAL PROTEIN 6.4 G/DL (5.7-8.2); TRIGLYCERIDES LEVEL 67 MG/DL (<150)
[2024-05-06 14:38] LABS: TOTAL 25(OH) VITAMIN D 61.4 NG/ML (20.0-100.0)
== END ==
LOC: M SFHCADAM 10:21
PROVIDERS: ATTEND Family Medicine
DX: K51.90 Ulcerative colitis, unspecified, without complications (principal); G35 Multiple sclerosis; M81.0 Age-related osteoporosis without current pathological fracture; E04.1 Nontoxic single thyroid nodule; Z79.899 Other long term (current) drug therapy

== ENCOUNTER → 2024-06-13 | Outpatient (CLI) | payer MEDICARE | LOC: M PAIN 14:45 | PROVIDERS: ATTEND Nurse Practitioner Family | DX: M51.16 Intervertebral disc disorders with radiculopathy, lumbar region (principal); G89.29 Other chronic pain; G35 Multiple sclerosis; M81.0 Age-related osteoporosis without current pathological fracture; F17.210 Nicotine dependence, cigarettes, uncomplicated; Z79.899 Other long term (current) drug therapy; Z88.1 Allergy status to other antibiotic agents ==

== ENCOUNTER → 2024-06-17 | Outpatient (CLI) | payer MEDICARE | LOC: M SLEEP 08:00 | PROVIDERS: ATTEND Psychiatry & Neurology Neurology | DX: R56.9 Unspecified convulsions (principal) ==

== ENCOUNTER → 2024-08-22 | Outpatient (CLI) | payer MEDICARE ==
[~2024-08-22] MED LIST changes: +dexAMETHasone 10MG/1ML VIAL PRES.FREE As Ordered ONE; -methylPREDNISolone SUSP 40MG/ML 1ML VIAL (DEPO MEDROL) As Ordered ONE
== END ==
LOC: M PAIN 11:00
PROVIDERS: ATTEND Anesthesiology
DX: M51.16 Intervertebral disc disorders with radiculopathy, lumbar region (principal); G89.29 Other chronic pain; G35 Multiple sclerosis; K51.90 Ulcerative colitis, unspecified, without complications; M81.0 Age-related osteoporosis without current pathological fracture; E04.2 Nontoxic multinodular goiter; F17.210 Nicotine dependence, cigarettes, uncomplicated; Z79.899 Other long term (current) drug therapy; Z88.1 Allergy status to other antibiotic agents
CPT/HCPCS: 62323; J1100; Q9967

== ENCOUNTER → 2024-11-20 | Outpatient (CLI) | payer MEDICARE | LOC: M PAIN 16:00 | PROVIDERS: ATTEND Nurse Practitioner Family | DX: M51.17 Intervertebral disc disorders with radiculopathy, lumbosacral region (principal); G89.29 Other chronic pain; G35 Multiple sclerosis; M81.0 Age-related osteoporosis without current pathological fracture; F17.210 Nicotine dependence, cigarettes, uncomplicated; Z79.899 Other long term (current) drug therapy; Z88.1 Allergy status to other antibiotic agents ==

== ENCOUNTER → 2025-01-06 | Outpatient (CLI) | payer MEDICARE | LOC: M PAIN 10:45 | PROVIDERS: ATTEND Nurse Practitioner Family | DX: M51.16 Intervertebral disc disorders with radiculopathy, lumbar region (principal); G89.29 Other chronic pain; F17.210 Nicotine dependence, cigarettes, uncomplicated; Z79.899 Other long term (current) drug therapy; Z88.1 Allergy status to other antibiotic agents ==

== ENCOUNTER → 2025-06-22 | Outpatient (CLI) | payer MEDICARE ==
[~2025-06-22] MED LIST changes: -ISOVUE-M 300 61% 15ML VIAL As Ordered ONE; -LIDOCAINE 1% SDV 30ML VIAL As Ordered ONE; -NORCO, ANEXSIA 5/325MG TABLET (HYDROcodone/ACETAMINOPHEN) As Ordered ONE; +PROHANCE 279.3MG/ML 15ML VIAL As Ordered ONE; +PROHANCE 279.3MG/ML 5ML VIAL As Ordered ONE; -dexAMETHasone 10MG/1ML VIAL PRES.FREE As Ordered ONE; -diazePAM 2 MG TAB As Ordered ONE; -diphenhydrAMINE 25MG CAP As Ordered ONE
== END ==
LOC: M RAD 14:53
PROVIDERS: ATTEND Nurse Practitioner Family
DX: G35 Multiple sclerosis (principal); M50.21 Other cervical disc displacement, high cervical region; M48.02 Spinal stenosis, cervical region; M50.222 Other cervical disc displacement at C5-C6 level; M47.812 Spondylosis without myelopathy or radiculopathy, cervical region
CPT/HCPCS: 70553; 72156; A9576